=== PATIENT | female | born 1960 | race Caucasian/White ===

== ENCOUNTER → 2020-09-27 13:02 | Outpatient (BNVA) | payer MEDICARE, MEDICAID, SELFPAY | PROVIDERS: PCP Internal Medicine; Visit Provider Internal Medicine Gastroenterology | DX: K74.60 Unspecified cirrhosis of liver (principal); R18.8 Other ascites; K72.90 Hepatic failure, unspecified without coma | CPT/HCPCS: 99202 ==

== ENCOUNTER 2020-10-19 09:45 | Outpatient (REF) | payer MEDICARE, MEDICAID, SELFPAY ==
--- NOTE | ~2020-10-19 | US_ITS ---
EXAMINATION: US ABDOMEN COMPLETE CLINICAL INFORMATION: Unspecified cirrhosis of liver. COMPARISON: None TECHNIQUE: Real-time imaging of the abdominal viscera. Technically difficult study secondary to bowel gas. FINDINGS: PANCREAS: Visualized portions unremarkable. The tail is partially obscured by bowel gas shadowing. ABDOMINAL AORTA: The proximal and mid segments are normal in caliber. INFERIOR VENA CAVA: Visualized portions are normal. LIVER: Mildly heterogeneous echotexture without focal abnormality. GALLBLADDER: Incompletely distended without focal abnormality. No cholelithiasis or pericholecystic fluid. No Hicks's sign was elicited. COMMON BILE DUCT: Common hepatic duct measures 0.6 cm. Common bile duct measures up to 0.7 cm. No intraluminal abnormality. RIGHT KIDNEY: 10.0 cm. Unremarkable. LEFT KIDNEY: 11.5 cm. Unremarkable. SPLEEN: 15.4 cm without focal abnormality. FREE FLUID: None. US/US abdomen complete IMPRESSION: 1. Mildly heterogeneous hepatic echotexture is nonspecific, but can be seen with cirrhosis. No focal abnormality. 2. Borderline splenomegaly.
== END 2020-10-19 09:46 | disposition home or self-care (01) ==
LOC: HO.US 09:45
PROVIDERS: Visit Provider Internal Medicine Gastroenterology
DX: K74.60 Unspecified cirrhosis of liver (principal); R18.8 Other ascites
CPT/HCPCS: 76700

== ENCOUNTER → 2020-12-29 09:34 | Outpatient (BNVA) | payer MEDICARE, MEDICAID, SELFPAY | PROVIDERS: Visit Provider Advanced Practice Midwife ==

== ENCOUNTER 2021-02-07 08:25 | Outpatient (REF) | payer MEDICARE, MEDICAID, SELFPAY ==
[2021-02-08 11:01] LABS: BV Int Neg Control Negative (Negative); BV Int Pos Control Positive (Positive)
== END 2021-02-07 08:26 | disposition home or self-care (01) ==
LOC: HO.LAB 08:25
PROVIDERS: Visit Provider Advanced Practice Midwife
DX: N89.8 Other specified noninflammatory disorders of vagina (principal); R15.9 Full incontinence of feces; Z20.2 Contact with and (suspected) exposure to infections with a predominantly sexual mode of transmission
CPT/HCPCS: 87480; 87510; 87660; 99202

== ENCOUNTER 2021-04-06 06:43 | Inpatient (IN) | payer MEDICARE, MEDICAID, SELFPAY ==
[2021-04-06] VITALS (13 sets, daily range): BP systolic 93–126; BP diastolic 42–95; PULSE 60–118; RESP 14–30; TEMP 36.2–39.4; O2SAT 94–100; BMI 27.3
--- NOTE | ~2021-04-06 | XR_ITS ---
EXAMINATION: XR CHEST CLINICAL INFORMATION: Shortness of breath COMPARISON: None TECHNIQUE: Frontal view of the chest was obtained. FINDINGS: The patient is rotated to the right. The cardiac and mediastinal contours are normal. The lung volumes are low. There is subsegmental atelectasis at the left lung base. The lungs are otherwise clear. There is no pleural effusion or pneumothorax. There is extensive hardware seen in the cervical spine and lower thoracic spine. There is a catheter that projects over the left shoulder and upper arm. Clinical correlation recommended. XR/XR chest 1V IMPRESSION: Limited exam due to patient positioning. No evidence for acute disease in the chest.
--- NOTE | ~2021-04-06 | CT_ITS ---
EXAMINATION: CT ANGIOGRAM OF THE CHEST WITH AND WITHOUT CONTRAST (CT PULMONARY ANGIOGRAM FOR PE) CLINICAL INFORMATION: Reason for Exam hypoxic, hemoptysis, elevated dimer COMPARISON: Chest x-ray from earlier the same day TECHNIQUE: Prior to contrast administration, noncontrast localization images were obtained. Subsequently, multidetector volumetric imaging was performed from the thoracic inlet to below the diaphragms following the administration of 60 mL Omnipaque 350 intravenous contrast. No contrast reaction reported Sagittal, coronal, and MIP oblique sagittal reformatted images were obtained on the CT workstation, uploaded to PACS, and reviewed. This CT examination was performed using dose optimization techniques as appropriate, variously including the following: *Automated exposure control *Adjustment of mA and/or kV according to patient size (this includes techniques or standardized protocols for targeted exams where dose is matched to indication/reason for exam; i.e. extremities or head) *Use of iterative reconstruction technique Total exam dose-length product 381 mGy-cm FINDINGS: QUALITY OF STUDY/CONTRAST BOLUS: Satisfactory. PULMONARY ARTERIES: No central or segmental pulmonary emboli. THORACIC AORTA: No aneurysm or dissection. LUNG: There is consolidation in the right upper lobe probably representing pneumonia. There is a atelectasis or small pneumonia is seen in the left lower lobe at the left lung base. The lungs are otherwise clear. PLEURA: No pleural effusion or pneumothorax. MEDIASTINUM: The heart is enlarged. No pericardial effusion. No hilar or mediastinal lymphadenopathy. No evidence of septal bowing or right heart strain. CHEST WALL/AXILLA: There is subcutaneous edema and skin thickening seen in the right chest wall. No chest wall mass or enlarged axillary lymph nodes are seen. OSSEOUS STRUCTURES: No acute or suspicious osseous abnormality. There is scoliosis. There are increased postsurgical changes to the cervical spine and lower thoracic spine. UPPER ABDOMEN: The liver and spleen appear prominent. No reflux of contrast into the hepatic veins to suggest elevated right heart pressures. CT/CT angio chest PE protocol IMPRESSION: No evidence of pulmonary embolism. Right upper lobe pneumonia and atelectasis or small pneumonia in the left lower lobe. VTE: negative
--- NOTE | ~2021-04-06 | XR_ITS ---
EXAMINATION: XR CHEST CLINICAL INFORMATION: Fever COMPARISON: 04/06/21 TECHNIQUE: Frontal portable view of the chest was obtained. FINDINGS: Multiple devices overlie the patient and obscures the anatomy. The cardiac silhouette is prominent this is likely projectional. No large mediastinal or hilar mass. No alveolar edema. No large pleural effusion or definite pneumothorax. Lateral lower right rib deformity likely chronic. Cervical thoracic and thoracolumbar instrumentation. No obvious pneumoperitoneum XR/XR chest 1V IMPRESSION: Limited study. No dense consolidation or alveolar edema
--- NOTE | 2021-04-06 06:57 | ECG_ITS ---
Test Reason : sob Blood Pressure : / mmHG Vent. Rate : 101 BPM Atrial Rate : 101 BPM P-R Int : 142 ms QRS Dur : 088 ms QT Int : 374 ms P-R-T Axes : 046 005 063 degrees QTc Int : 484 ms Sinus tachycardia Minimal voltage criteria for LVH, may be normal variant ( R in aVL ) Borderline ECG No previous ECGs available Referred By: Suzy Qiu Electronically Signed By:Shawn Stevens
--- NOTE | 2021-04-06 07:00 | ED_ITS ---
HPI - SOB/Dyspnea General Chief Complaint: Dyspnea Stated Complaint: SOB X'S 3 DAYS FROM SNF,87% RA, 96% NRB PER EMS Time Seen by Provider: 04/06/21 06:44 Source: EMS Mode of arrival: EMS Limitations: altered mental status History of Present Illness HPI Narrative: Patient comes to the emergency room via ambulance from [facility]. This morning, nurses noted that the patient's oxygen saturation was 87% on room air. The staff reports that the patient has been short of breath for 3 days now. Patient is unable to give any history. EMS started the patient on non- rebreather at 15 L, oxygen improved to 95%. According to the staff admission care, the patient is ambulatory, able to interact with staff at baseline. Related Data Home Medications Medication Instructions Recorded Confirmed baclofen 10 mg tablet 10 mg PO TID@0900,1300,1700 09/27/20 04/06/21 docusate sodium 100 mg capsule 100 mg PO DAILY 09/27/20 04/06/21 furosemide 40 mg tablet 40 mg PO DAILY 09/27/20 04/06/21 magnesium oxide 400 mg PO BID@0900,1700 09/27/20 04/06/21 rifaximin 550 mg tablet (Xifaxan) 550 mg PO TID 02/07/21 04/06/21 risperidone 0.5 mg tablet 0.5 mg PO TID@0900,1300,1700 02/07/21 04/06/21 (Risperdal) sertraline 100 mg tablet 100 mg PO BEDTIME 02/07/21 04/06/21 spironolactone 50 mg tablet 50 mg PO DAILY@1300 02/07/21 04/06/21 trazodone 50 mg tablet 50 mg PO BEDTIME 02/07/21 04/06/21 atorvastatin 20 mg tablet 20 mg PO DAILY 04/06/21 04/06/21 divalproex 250 mg tablet,delayed 720 mg PO DAILY 04/06/21 04/06/21 release famotidine 20 mg tablet 20 mg PO DAILY 04/06/21 04/06/21 insulin detemir U-100 100 unit/mL 65 unit SUBCUT DAILY@1700 04/06/21 04/06/21 subcutaneous solution insulin detemir U-100 100 unit/mL 80 unit SUBCUT DAILY 04/06/21 04/06/21 subcutaneous solution insulin lispro 100 unit/mL 1 sliding scale dose SUBCUT 04/06/21 04/06/21 subcutaneous pen USEASDIRECTD lactulose 10 gram/15 mL oral 20 g PO BID@0900,1700 04/06/21 04/06/21 solution (Enulose) levothyroxine 112 mcg tablet 112 mcg PO DAILY@0600 04/06/21 04/06/21 pregabalin 75 mg capsule 75 mg PO DAILY 04/06/21 04/06/21 Allergies Allergy/AdvReac Type Severity Reaction Status Date / Time acetaminophen [From Percocet] Allergy Unknown Unknown Verified 02/07/21 08:48 oxycodone [From Percocet] Allergy Unknown Unknown Verified 02/07/21 08:48 Review of Systems Review of Systems: Yes Unobtainable due to mental condition and Unobtainable due to mental status [facility] Past Medical History Medical History Acute and subacute hepatic failure without coma Acute kidney failure Bipolar disorder Brain injury Cirrhosis of liver Contracture, right hand Hammer toe Nail dystrophy Other seizures Presbyopia Tinea manuum, pedis, and unguium Type 2 diabetes mellitus Surgical History Previous back surgery Social History Social History Advance Directives: Yes Advance Directives Information Provided: No Advance Directives on File: No Physical Exam Vital Signs: Vital Signs: Last Vital Signs Temp 100.1 F 04/06/21 09:21 Pulse 104 H 04/06/21 09:21 Resp 24 H 04/06/21 09:21 BP 124/61 04/06/21 09:21 Pulse Ox 99 04/06/21 09:21 BMI result Body Mass Index 27.3 Const: Other: Appearance: Alert. Ill-appearing Eyes: Pupils equal, round and reactive to light. ENT: Pharynx normal. Neck: Normal inspection. Neck supple. No lymph nodes noted. No crepitus CVS: Mild tachycardic, normal rhythm. Pulses normal. Normal S1 and S2 Respiratory: Mild to moderate respiratory distress, lung sounds have bilateral rales and crackles, no wheezing Abdomen: Soft and nontender. No rigidity. No distention. Skin: Skin hot and clammy Extremities: Trace pitting edema bilaterally, No Lacerations. No Rash Neuro: Oriented X 3. No motor deficit. No sensory deficit. Moving all extermities. No slurred speech. Course Course Course Narrative: 07:00 patient just arrived, all of patient's vitals are pending. Patient looks sick, likely having a combination of CHF exacerbation and pneumonia. Empiric antibiotics have been started, ceftriaxone and azithromycin. Pulmonary edema is also suspected. At this time, we will start only with 1 L and re-evaluate mental status. At this time, we do not have patient's weight. On arrival temperature was checked, is 103 rectal. Patient is allergic to acetaminophen, patient was given rectal aspirin. I was informed by the patient's nurse that the patient had 1 episode of hemoptysis. Will try to wean patient down to a Ventimask 09:45 Patient is saturating 95% with a Ventimask. CT negative for PE, however patient does have pneumonia. Patient has already been covered with IV antibiotics on arrival. I discussed the patient with Dr. Simons, patient being admitted MDM - SOB/Dyspnea Lab Data Result diagrams: 04/06/21 07:13 04/06/21 07:13 Labs: Lab Results 04/06/21 04/06/21 04/06/21 Range/Units 07:05 07:13 07:13 WBC 5.5 (4.8-10.8) X10*3/uL RBC 3.42 L (4.20-5.50) X10*6/uL Hgb 10.8 L (12.0-16.0) g/dl Hct 34.5 L (37.0-47.0) % MCV 100.9 H (80.0-98.0) fL MCH 31.6 (27.0-33.0) pg MCHC 31.3 (31.0-35.0) g/dl RDW 16.0 (11.0-16.0) % Plt Count 120 L (160-400) X10*3/uL MPV 11.3 (9.4-12.3) fL Immature Gran % (Auto) 0.4 (0.0-0.4) % Neut % (Auto) 69.0 (45-73) % Lymph % (Auto) 18.9 L (20-40) % [place] % (Auto) 10.9 (2-11) % Eos % (Auto) 0.4 (0-4) % Baso % (Auto) 0.4 (0-2) % Lymph # (Auto) 1.0 L (1.2-4.9) X10*3/uL [place] # (Auto) 0.6 (0.1-1.2) X10*3/uL Eos # (Auto) 0.0 (0.0-0.4) X10*3/uL Baso # (Auto) 0.0 (0.0-0.2) X10*3/uL Abs Immat Gran (auto) 0.02 (0.00-0.03) X10*3/uL Absolute Neuts (auto) 3.8 (2.0-8.3) x10*3/uL Absolute Nucleated RBC 0.000 (0.0-0.012) X10*3/uL Nucleated RBC % (auto) 0.0 (0.0-0.2) /100WBC PT 16.8 H (9.9-13.0) SEC INR 1.5 H (0.9-1.1) D-Dimer High Sensitivty 565 NG/ML VBG pH (7.32-7.43) VBG pCO2 mmHg VBG pO2 mmHg VBG HCO3 (22-26) mmol/L VBG O2 Saturation % VBG Base Excess mmol/L Sodium (135-145) mmol/L Potassium (3.3-5.1) mmol/L Chloride (96-108) mmol/L Carbon Dioxide (22-29) mmol/L Anion Gap (12-20) BUN (9-16) mg/dL Creatinine (0.5-1.4) mg/dL Estim Creat Clear Calc Estimated GFR POC Glucose (60-115) mg/dL Random Glucose (60-115) mg/dL Lactic Acid (0.5-2.0) mmol/L Calcium (8.4-10.2) mg/dL Total Bilirubin (0.0-1.0) mg/dL Direct Bilirubin (0.0-0.5) mg/dL AST (5-31) U/L ALT (0-31) U/L Alkaline Phosphatase (39-117) U/L Troponin I High Sens (<3.5-17.0) ng/L B-Natriuretic Peptide (<100) pg/mL Total Protein (6.5-8.0) g/dL Albumin (3.5-5.0) g/dL COVID-19 (MELONIE) Negative (Negative) COVID-19 Clin Com See Note 04/06/21 04/06/21 04/06/21 Range/Units 07:13 07:13 07:17 WBC (4.8-10.8) X10*3/uL RBC (4.20-5.50) X10*6/uL Hgb (12.0-16.0) g/dl Hct (37.0-47.0) % MCV (80.0-98.0) fL MCH (27.0-33.0) pg MCHC (31.0-35.0) g/dl RDW (11.0-16.0) % Plt Count (160-400) X10*3/uL MPV (9.4-12.3) fL Immature Gran % (Auto) (0.0-0.4) % Neut % (Auto) (45-73) % Lymph % (Auto) (20-40) % [place] % (Auto) (2-11) % Eos % (Auto) (0-4) % Baso % (Auto) (0-2) % Lymph # (Auto) (1.2-4.9) X10*3/uL [place] # (Auto) (0.1-1.2) X10*3/uL Eos # (Auto) (0.0-0.4) X10*3/uL Baso # (Auto) (0.0-0.2) X10*3/uL Abs Immat Gran (auto) (0.00-0.03) X10*3/uL Absolute Neuts (auto) (2.0-8.3) x10*3/uL Absolute Nucleated RBC (0.0-0.012) X10*3/uL Nucleated RBC % (auto) (0.0-0.2) /100WBC PT (9.9-13.0) SEC INR (0.9-1.1) D-Dimer High Sensitivty NG/ML VBG pH 7.44 H (7.32-7.43) VBG pCO2 38 mmHg VBG pO2 52 mmHg VBG HCO3 26 (22-26) mmol/L VBG O2 Saturation 77.0 % VBG Base Excess 2.0 mmol/L Sodium 139 (135-145) mmol/L Potassium 4.4 (3.3-5.1) mmol/L Chloride 102 (96-108) mmol/L Carbon Dioxide 26 (22-29) mmol/L Anion Gap 15 (12-20) BUN 21 H (9-16) mg/dL Creatinine 1.14 (0.5-1.4) mg/dL Estim Creat Clear Calc 49.2 Estimated GFR 48 POC Glucose (60-115) mg/dL Random Glucose 365 H* (60-115) mg/dL Lactic Acid (0.5-2.0) mmol/L Calcium 9.4 (8.4-10.2) mg/dL Total Bilirubin 1.7 H (0.0-1.0) mg/dL Direct Bilirubin 0.8 H (0.0-0.5) mg/dL AST 27 (5-31) U/L ALT 21 (0-31) U/L Alkaline Phosphatase 76 (39-117) U/L Troponin I High Sens 5.5 (<3.5-17.0) ng/L B-Natriuretic Peptide 63 (<100) pg/mL Total Protein 9.4 H (6.5-8.0) g/dL Albumin 3.6 (3.5-5.0) g/dL COVID-19 (MELONIE) (Negative) COVID-19 Clin Com 04/06/21 04/06/21 Range/Units 07:28 08:12 WBC (4.8-10.8) X10*3/uL RBC (4.20-5.50) X10*6/uL Hgb (12.0-16.0) g/dl Hct (37.0-47.0) % MCV (80.0-98.0) fL MCH (27.0-33.0) pg MCHC (31.0-35.0) g/dl RDW (11.0-16.0) % Plt Count (160-400) X10*3/uL MPV (9.4-12.3) fL Immature Gran % (Auto) (0.0-0.4) % Neut % (Auto) (45-73) % Lymph % (Auto) (20-40) % [place] % (Auto) (2-11) % Eos % (Auto) (0-4) % Baso % (Auto) (0-2) % Lymph # (Auto) (1.2-4.9) X10*3/uL [place] # (Auto) (0.1-1.2) X10*3/uL Eos # (Auto) (0.0-0.4) X10*3/uL Baso # (Auto) (0.0-0.2) X10*3/uL Abs Immat Gran (auto) (0.00-0.03) X10*3/uL Absolute Neuts (auto) (2.0-8.3) x10*3/uL Absolute Nucleated RBC (0.0-0.012) X10*3/uL Nucleated RBC % (auto) (0.0-0.2) /100WBC PT (9.9-13.0) SEC INR (0.9-1.1) D-Dimer High Sensitivty NG/ML VBG pH (7.32-7.43) VBG pCO2 mmHg VBG pO2 mmHg VBG HCO3 (22-26) mmol/L VBG O2 Saturation % VBG Base Excess mmol/L Sodium (135-145) mmol/L Potassium (3.3-5.1) mmol/L Chloride (96-108) mmol/L Carbon Dioxide (22-29) mmol/L Anion Gap (12-20) BUN (9-16) mg/dL Creatinine (0.5-1.4) mg/dL Estim Creat Clear Calc Estimated GFR POC Glucose 322 H (60-115) mg/dL Random Glucose (60-115) mg/dL Lactic Acid 2.2 H* (0.5-2.0) mmol/L Calcium (8.4-10.2) mg/dL Total Bilirubin (0.0-1.0) mg/dL Direct Bilirubin (0.0-0.5) mg/dL AST (5-31) U/L ALT (0-31) U/L Alkaline Phosphatase (39-117) U/L Troponin I High Sens (<3.5-17.0) ng/L B-Natriuretic Peptide (<100) pg/mL Total Protein (6.5-8.0) g/dL Albumin (3.5-5.0) g/dL COVID-19 (MELONIE) (Negative) COVID-19 Clin Com Imaging Data CTA chest: Radiologist's impression: FINDINGS: QUALITY OF STUDY/CONTRAST BOLUS: Satisfactory. PULMONARY ARTERIES: No central or segmental pulmonary emboli.? THORACIC AORTA: No aneurysm or dissection. LUNG: There is consolidation in the right upper lobe probably representing pneumonia. There is a atelectasis or small pneumonia is seen in the left lower lobe at the left lung base. The lungs are otherwise clear. PLEURA: No pleural effusion or pneumothorax. MEDIASTINUM: The heart is enlarged. No pericardial effusion.? No hilar or mediastinal lymphadenopathy.? No evidence of septal bowing or right heart strain. CHEST WALL/AXILLA: There is subcutaneous edema and skin thickening seen in the right chest wall. No chest wall mass or enlarged axillary lymph nodes are seen. OSSEOUS STRUCTURES: No acute or suspicious osseous abnormality. There is scoliosis. There are increased postsurgical changes to the cervical spine and lower thoracic spine. UPPER ABDOMEN: The liver and spleen appear prominent.? No reflux of contrast into the hepatic veins to suggest elevated right heart pressures. CT/CT angio chest PE protocol IMPRESSION: No evidence of pulmonary embolism. Right upper lobe pneumonia and atelectasis or small pneumonia in the left lower lobe. ? VTE: negative Critical Care Time Critical Care Time Critical Care Time: Yes Total Critical Care Time: 50 Attestation: 50 minutes were spent in direct patient care and stabilization Discharge Plan Discharge Clinical Impression: Pneumonia, Acute hyperglycemia Patient Disposition: Admitted As Inpatient Prescriptions: No Action atorvastatin 20 mg Tablet 20 mg PO DAILY 0RF divalproex 250 mg Tablet,Delayed Release (Dr/Ec) 720 mg PO DAILY 0RF famotidine 20 mg Tablet 20 mg PO DAILY 0RF levothyroxine 112 mcg Tablet 112 mcg PO DAILY@0600 0RF insulin lispro 100 unit/mL Insulin Pen 1 sliding scale dose SUBCUT USEASDIRECTD 0RF lactulose [Enulose] 10 gram/15 mL Solution 20 g PO BID@0900,1700 0RF pregabalin 75 mg Capsule 75 mg PO DAILY 0RF insulin detemir U-100 100 unit/mL Solution 80 unit SUBCUT DAILY 0RF insulin detemir U-100 100 unit/mL Solution 65 unit SUBCUT DAILY@1700 0RF baclofen 10 mg tablet 10 mg PO TID@0900,1300,1700 0RF docusate sodium 100 mg capsule 100 mg PO DAILY 0RF furosemide 40 mg tablet 40 mg PO DAILY 0RF magnesium oxide 400 mg magnesium capsule 400 mg PO BID@0900,1700 0RF trazodone 50 mg tablet 50 mg PO BEDTIME 0RF Xifaxan 550 mg tablet 550 mg PO TID 0RF sertraline 100 mg tablet 100 mg PO BEDTIME 0RF spironolactone 50 mg tablet 50 mg PO DAILY@1300 0RF risperidone [Risperdal] 0.5 mg tablet 0.5 mg PO TID@0900,1300,1700 0RF
[2021-04-06 07:18] LABS: MANUAL DIFF FLAG NO
[2021-04-06] MEDS: 0.9 % Sodium Chloride 1,000 ML 999 ML IVCONT (07:18)
[2021-04-06] MEDS: Acetaminophen Supp 650 MG SUPP.RECT PR (07:18)
[2021-04-06] MEDS: Aspirin 300 MG SUPP.RECT PR (07:18)
[2021-04-06 07:23] LABS: Basophils Percent Auto 0.4 % (0-2); Eosinophils Percent Auto 0.4 % (0-4); Hematocrit 34.5 % (37.0-47.0); Hemoglobin 10.8 g/dl (12.0-16.0); Imm Gran Abs Auto 0.02 X10*3/uL (0.00-0.03); Imm Gran Pct Auto 0.4 % (0.0-0.4); Lymphocytes Percent Auto 18.9 % (20-40); Mean Corpuscular HGB Conc 31.3 g/dl (31.0-35.0); Mean Corpuscular Hemoglobin 31.6 pg (27.0-33.0); Mean Corpuscular Volume 100.9 fL (80.0-98.0); Mean Platelet Volume 11.3 fL (9.4-12.3); Monocytes Absolute Auto 0.6 X10*3/uL (0.1-1.2); Monocytes Percent Auto 10.9 % (2-11); Neutrophils Absolute Auto 3.8 x10*3/uL (2.0-8.3); Platelet Count 120 X10*3/uL (160-400); Red Blood Count 3.42 X10*6/uL (4.20-5.50); White Blood Count 5.5 X10*3/uL (4.8-10.8)
[2021-04-06 07:24] LABS: VBG HCO3 26 mmol/L (22-26); VBG pCO2 38 mmHg; VBG pH 7.44 (7.32-7.43); VBG pO2 52 mmHg
[2021-04-06 07:25] LABS: Venous Blood Gas Refer to POC result
[2021-04-06 07:28] LABS: INTERNATIONAL NORM RATIO 1.5 (0.9-1.1); Prothrombin Time 16.8 SEC (9.9-13.0)
[2021-04-06 07:40] LABS: COVID-19 Test Negative (Negative)
[2021-04-06] MEDS: cefTRIAXone sodium 1 GM in 0.9 % Sodium Chloride 50 ML IV (07:40)
[2021-04-06 07:42] LABS: Alanine Aminotransferase 21 U/L (0-31); Albumin Level 3.6 g/dL (3.5-5.0); Alkaline Phosphatase 76 U/L (39-117); Anion Gap 15 (12-20); Aspartate Amino Transferase 27 U/L (5-31); Bilirubin Direct 0.8 mg/dL (0.0-0.5); Bilirubin Total 1.7 mg/dL (0.0-1.0); Blood Urea Nitrogen 21 mg/dL (9-16); Calcium 9.4 mg/dL (8.4-10.2); Carbon Dioxide 26 mmol/L (22-29); Chloride 102 mmol/L (96-108); Creatinine Clr Calc Pharmacy 49.2; Estimated Glomerular Filt Rate 48; Glucose Random 365 mg/dL (60-115); Potassium 4.4 mmol/L (3.3-5.1); Sodium 139 mmol/L (135-145); Total Protein 9.4 g/dL (6.5-8.0)
[2021-04-06 07:45] LABS: B Type Natriuretic Peptide 63 pg/mL (<100); Troponin-I High Sensitivity 5.5 ng/L (<3.5-17.0)
[2021-04-06 07:49] LABS: Lactic Acid 2.2 mmol/L (0.5-2.0)
[2021-04-06 08:06] LABS: D Dimer High Sensitivity 565 NG/ML
[2021-04-06] MEDS: Azithromycin 500 MG in 0.9 % Sodium Chloride 250 ML 125 MG IV (08:13)
[2021-04-06] MEDS: Insulin Regular, Human 100 UNIT/ML 3 ML VIAL 10 UNIT IVPUSH (08:16)
[2021-04-06 08:20] LABS: Glucose, Whole Blood 322 mg/dL (60-115)
--- NOTE | 2021-04-06 08:47 | PHA.MEDREC ---
Pharmacy Consult ? Medication Reconciliation Pharmacy has completed the medication reconciliation. Patient came from [facility] with a medication list. Gifty oCnstantino, BishnuD
[2021-04-06] MEDS: iohexoL 350 MG/ML 100 ML INFUS..BTL 60 ML IV (09:08)
[2021-04-06] MEDS: iohexoL 350 MG/ML 100 ML INFUS..BTL IV (09:22)
[2021-04-06 09:31] LABS: Reflex Lactate? Lactic Acid Added
[2021-04-06] MEDS: 0.9 % Sodium Chloride 1,500 ML 999 ML IVCONT (09:37)
[2021-04-06 09:49] LABS: Appearance Urine CLOUDY; Color Urine YELLOW; Glucose Urine UA NEG (NEG); Leukocyte Esterase Urine NEG (NEG); Nitrite Urine POS (NEG); UACC Culture Trigger YES; Urine Blood NEG (NEG); Urine Ketones 5 MG/DL (NEG); Urine Protein TRACE MG/DL (NEG-TRACE)
[2021-04-06 09:59] LABS: Bacteria Urine 3+ /LPF; RBC Urine 0 /HPF (0); Squamous Epithelial Cell Urine 1+ /LPF
[2021-04-06 10:31] LABS: Glucose, Whole Blood 291 mg/dL (60-115)
--- NOTE | 2021-04-06 11:18 | PM.IMHP ---
History of Present Illness Date of Service: 04/06/21 Chief Complaint: AMS, hypoxia This history obtained from ED physician, SNF records, and the patient's sister Janessa Nelson via telephone, as the patient has altered mental status and is unable to give a history at this time. 61yo F long-term care resident of [facility] with bipolar 1, PTSD, cirrhosis with ascites/portal hypertension and hepatic encephalopathy, GERD, hypothyroidism, and DM2 was noted by have dyspnea and altered mental status over the last 3 days. Today, oxygen saturation was 87% on room air. EMS was called. On presentation to the ED, she was septic by virtue of fever to 103 and tachycardia in the 110s. CTA showed RUL/LLL pneumonia. Covid-19 MELONIE negative. Lactate 2.2. She was given IV ceftriaxone and azithromycin and a liter of IV NS. She was hyperglycemic to 365 and was given 10 units of IV regular insulin. Review of Systems Review of Systems: Yes Unobtainable due to mental status [facility] Medical History Acute and subacute hepatic failure without coma Acute kidney failure Bipolar disorder Brain injury Cirrhosis of liver Contracture, right hand Hammer toe Nail dystrophy Other seizures Presbyopia Tinea manuum, pedis, and unguium Type 2 diabetes mellitus Functional capacity: independent ambulation Pertinent family history: no DM Surgical History History of lumpectomy Previous back surgery Social History Advance Directives: Yes Advance Directives Information Provided: No Advance Directives on File: No Narrative: No smoking, EtOH, or drug abuse At baseline, she ambulates with rollator for short distances. She uses a wheelchair for long distances. She can feed herself once she is set up. She is incontinent of urine. Per MOLST, resuscitation OK but DNI. Meds Allergies Allergy/AdvReac Type Severity Reaction Status Date / Time acetaminophen [From Percocet] Allergy Unknown Unknown Verified 02/07/21 08:48 oxycodone [From Percocet] Allergy Unknown Unknown Verified 02/07/21 08:48 Active Medications: Current Medications Atorvastatin Calcium (Atorvastatin Calcium 20 Mg Tablet) 20 mg PO DAILY ARABELLA Baclofen (Baclofen 10 Mg Tablet) 10 mg PO TID@0900,1300,1700 [facility] Dextrose (Dextrose 50 % 25 Gm/50 Ml Syringe) 25 gm IVPUSH Q15M PRN; Protocol PRN Reason: per Hypoglycemia Standing Ord. Divalproex Sodium (Divalproex Sodium 250 Mg Tablet.Dr) 750 mg PO DAILY [facility] Docusate Sodium (Docusate Sodium 100 Mg Capsule) 100 mg PO DAILY [facility] Famotidine (Famotidine 20 Mg Tablet) 20 mg PO DAILY [facility] Furosemide (Furosemide 40 Mg Tablet) 40 mg PO DAILY ARABELLA; Protocol Glucose (Glucose Gel 15 Gm Gel..Gram.) 15 gm PO Q15M PRN; Protocol PRN Reason: per Hypoglycemia Standing Ord. Ceftriaxone Sodium 1 gm/ (Sodium Chloride) 50 mls @ 100 mls/hr IV Q24H ARABELLA Doxycycline Hyclate 100 mg/ (Sodium Chloride) 250 mls @ 166.67 mls/hr IV Q12H [facility] Sodium Chloride (Ns) 1,000 mls @ 100 mls/hr IVCONT .Q10H [facility] Stop: 04/06/21 21:14 Insulin Glargine (Insulin Glargine,Hum.Rec.Anlog 100 Unit/Ml 10 Ml Vial) 40 unit SUBCUT DAILY [facility] Insulin Human Lispro (Insulin Lispro 100 Unit/Ml 3 Ml Vial) 0 unit SUBCUT QIDACHS [facility]; Protocol Lactulose (Lactulose 20 Gm/30 Ml Solution) 20 gm PO BID@0900,1700 [facility] Levothyroxine Sodium (Levothyroxine Sodium 112 Mcg Tablet) 112 mcg PO DAILY@0600 [facility] Magnesium Oxide (Magnesium Oxide 400 Mg Tablet) 400 mg PO BID@0900,1700 [facility] Ondansetron HCl (Ondansetron Hcl 4 Mg/2 Ml Vial) 4 mg IVPUSH Q8H PRN PRN Reason: Nausea and Vomiting Pharmacy Consult (Consult Rx Perform Med Rec) 1 each MISCELLANE ONCE PRN PRN Reason: Consult order Pregabalin (Pregabalin 75 Mg Capsule) 75 mg PO DAILY [facility] Rifaximin (Rifaximin 550 Mg Tablet) 550 mg PO TID [facility] Risperidone (Risperidone 0.5 Mg Tablet) 0.5 mg PO TID@0900,1300,1700 [facility] Sertraline HCl (Sertraline Hcl 100 Mg Tablet) 100 mg PO BEDTIME [facility] Sodium Chloride (0.9 % Sodium Chloride Flush 3 Ml Syringe) 3 ml IVFLUSH QSHIFT [facility] Spironolactone (Spironolactone 25 Mg Tablet) 50 mg PO DAILY@1300 [facility]; Protocol Trazodone HCl (Trazodone Hcl 50 Mg Tablet) 50 mg PO BEDTIME [facility] Home Medications Medication Instructions Recorded Confirmed Last Taken Type baclofen 10 mg tablet 10 mg PO TID@0900,1300,1700 09/27/20 04/06/21 04/05/21 History docusate sodium 100 mg capsule 100 mg PO DAILY 09/27/20 04/06/21 04/05/21 History furosemide 40 mg tablet 40 mg PO DAILY 09/27/20 04/06/21 04/05/21 History magnesium oxide 400 mg PO BID@0900,1700 09/27/20 04/06/21 04/05/21 History rifaximin 550 mg tablet (Xifaxan) 550 mg PO TID 02/07/21 04/06/21 04/05/21 History risperidone 0.5 mg tablet 0.5 mg PO TID@0900,1300,1700 02/07/21 04/06/21 04/05/21 History (Risperdal) sertraline 100 mg tablet 100 mg PO BEDTIME 02/07/21 04/06/21 04/05/21 History spironolactone 50 mg tablet 50 mg PO DAILY@1300 02/07/21 04/06/21 04/05/21 History trazodone 50 mg tablet 50 mg PO BEDTIME 02/07/21 04/06/21 04/05/21 History atorvastatin 20 mg tablet 20 mg PO DAILY 04/06/21 04/06/21 04/05/21 History divalproex 250 mg tablet,delayed 750 mg PO DAILY 04/06/21 04/06/21 04/05/21 History release famotidine 20 mg tablet 20 mg PO DAILY 04/06/21 04/06/21 04/05/21 History insulin detemir U-100 100 unit/mL 65 unit SUBCUT DAILY@1700 04/06/21 04/06/21 04/05/21 History subcutaneous solution insulin detemir U-100 100 unit/mL 80 unit SUBCUT DAILY 04/06/21 04/06/21 04/05/21 History subcutaneous solution insulin lispro 100 unit/mL 1 sliding scale dose SUBCUT 04/06/21 04/06/21 04/05/21 History subcutaneous pen USEASDIRECTD lactulose 10 gram/15 mL oral 20 g PO BID@0900,1700 04/06/21 04/06/21 04/05/21 History solution (Enulose) levothyroxine 112 mcg tablet 112 mcg PO DAILY@0600 04/06/21 04/06/21 04/06/21 History pregabalin 75 mg capsule 75 mg PO DAILY 04/06/21 04/06/21 04/05/21 History Physical Exam Vital Signs and Narrative: Vital Signs: Last Vital Signs Temp 100.1 F 04/06/21 09:21 Pulse 118 H 04/06/21 10:17 Resp 20 04/06/21 10:17 BP 113/59 L 04/06/21 10:17 Pulse Ox 100 04/06/21 10:17 BMI result Body Mass Index 27.3 Gen: ill-appearing, non-verbal at this time HEENT: sclera anicteric, moist mucus membranes Neck: supple Lungs: diminished, coarse wet inspiratory crackles R-sided Heart: tachycardic, no murmurs Abd: soft, non-tender, non-distended Ext: no edema Skin: warm/well-perfused Neuro: somnolent, multiple contractures Psych: impaired insight Results Labs CBC and Chem 7: 04/06/21 07:13 04/06/21 07:13 Labs: Laboratory Results - last 24 hr 04/06/21 04/06/21 04/06/21 07:05 07:13 07:13 MCV 100.9 H MCH 31.6 MCHC 31.3 RDW 16.0 Plt Count 120 L MPV 11.3 Immature Gran % (Auto) 0.4 Neut % (Auto) 69.0 Lymph % (Auto) 18.9 L [place] % (Auto) 10.9 Eos % (Auto) 0.4 Baso % (Auto) 0.4 Lymph # (Auto) 1.0 L [place] # (Auto) 0.6 Eos # (Auto) 0.0 Baso # (Auto) 0.0 Abs Immat Gran (auto) 0.02 Absolute Neuts (auto) 3.8 Absolute Nucleated RBC 0.000 Nucleated RBC % (auto) 0.0 PT 16.8 H INR 1.5 H D-Dimer High Sensitivty 565 VBG pH VBG pCO2 VBG pO2 VBG HCO3 VBG O2 Saturation VBG Base Excess Anion Gap Estim Creat Clear Calc Estimated GFR POC Glucose Random Glucose Lactic Acid Calcium Total Bilirubin Direct Bilirubin AST ALT Alkaline Phosphatase B-Natriuretic Peptide Total Protein Albumin Urine Color Urine Appearance Urine pH Ur Specific [place] Urine Protein Urine Glucose (UA) Urine Ketones Urine Blood Urine Nitrite Ur Leukocyte Esterase Urine RBC Urine WBC Ur Squamous Epith Cells Urine Bacteria COVID-19 (MELONIE) Negative COVID-19 Clin Com See Note 04/06/21 04/06/21 04/06/21 07:13 07:13 07:17 MCV MCH MCHC RDW Plt Count MPV Immature Gran % (Auto) Neut % (Auto) Lymph % (Auto) [place] % (Auto) Eos % (Auto) Baso % (Auto) Lymph # (Auto) [place] # (Auto) Eos # (Auto) Baso # (Auto) Abs Immat Gran (auto) Absolute Neuts (auto) Absolute Nucleated RBC Nucleated RBC % (auto) PT INR D-Dimer High Sensitivty VBG pH 7.44 H VBG pCO2 38 VBG pO2 52 VBG HCO3 26 VBG O2 Saturation 77.0 VBG Base Excess 2.0 Anion Gap 15 Estim Creat Clear Calc 49.2 Estimated GFR 48 POC Glucose Random Glucose 365 H* Lactic Acid Calcium 9.4 Total Bilirubin 1.7 H Direct Bilirubin 0.8 H AST 27 ALT 21 Alkaline Phosphatase 76 B-Natriuretic Peptide 63 Total Protein 9.4 H Albumin 3.6 Urine Color Urine Appearance Urine pH Ur Specific [place] Urine Protein Urine Glucose (UA) Urine Ketones Urine Blood Urine Nitrite Ur Leukocyte Esterase Urine RBC Urine WBC Ur Squamous Epith Cells Urine Bacteria COVID-19 (MELONIE) COVID-19 Clin Com 04/06/21 04/06/21 04/06/21 07:28 08:12 09:36 MCV MCH MCHC RDW Plt Count MPV Immature Gran % (Auto) Neut % (Auto) Lymph % (Auto) [place] % (Auto) Eos % (Auto) Baso % (Auto) Lymph # (Auto) [place] # (Auto) Eos # (Auto) Baso # (Auto) Abs Immat Gran (auto) Absolute Neuts (auto) Absolute Nucleated RBC Nucleated RBC % (auto) PT INR D-Dimer High Sensitivty VBG pH VBG pCO2 VBG pO2 VBG HCO3 VBG O2 Saturation VBG Base Excess Anion Gap Estim Creat Clear Calc Estimated GFR POC Glucose 322 H Random Glucose Lactic Acid 2.2 H* Calcium Total Bilirubin Direct Bilirubin AST ALT Alkaline Phosphatase B-Natriuretic Peptide Total Protein Albumin Urine Color YELLOW Urine Appearance CLOUDY Urine pH 7.0 Ur Specific [place] 1.020 Urine Protein TRACE Urine Glucose (UA) NEG Urine Ketones 5 Urine Blood NEG Urine Nitrite POS H Ur Leukocyte Esterase NEG Urine RBC 0 Urine WBC 10-14 H Ur Squamous Epith Cells 1+ Urine Bacteria 3+ COVID-19 (MELONIE) COVID-19 Clin Com 04/06/21 10:19 MCV MCH MCHC RDW Plt Count MPV Immature Gran % (Auto) Neut % (Auto) Lymph % (Auto) [place] % (Auto) Eos % (Auto) Baso % (Auto) Lymph # (Auto) [place] # (Auto) Eos # (Auto) Baso # (Auto) Abs Immat Gran (auto) Absolute Neuts (auto) Absolute Nucleated RBC Nucleated RBC % (auto) PT INR D-Dimer High Sensitivty VBG pH VBG pCO2 VBG pO2 VBG HCO3 VBG O2 Saturation VBG Base Excess Anion Gap Estim Creat Clear Calc Estimated GFR POC Glucose 291 H Random Glucose Lactic Acid Calcium Total Bilirubin Direct Bilirubin AST ALT Alkaline Phosphatase B-Natriuretic Peptide Total Protein Albumin Urine Color Urine Appearance Urine pH Ur Specific [place] Urine Protein Urine Glucose (UA) Urine Ketones Urine Blood Urine Nitrite Ur Leukocyte Esterase Urine RBC Urine WBC Ur Squamous Epith Cells Urine Bacteria COVID-19 (MELONIE) COVID-19 Clin Com Imaging Radiologist's Impressions: Impressions Chest X-Ray 04/06/21 08:21 IMPRESSION: Limited exam due to patient positioning. No evidence for acute disease in the chest. Chest CTA 04/06/21 09:20 IMPRESSION: No evidence of pulmonary embolism. Right upper lobe pneumonia and atelectasis or small pneumonia in the left lower lobe. VTE: negative Assessment and Plan (1) Severe sepsis: Status: Acute (2) Pneumonia: Status: Acute Plan 61yo long-term SNF resident with bipolar 1, PTSD, cirrhosis with ascites/portal hypertension and hepatic encephalopathy, GERD, hypothyroidism, and DM2 sent in with AMS, dyspnea, and hypoxia and found to have severe sepsis from pneumonia. # severe sepsis # multifocal pneumonia - admit to [facility] - ceftriaxone + doxycycline - trend PCT - check RVP - check Legionella + pneumococcal UAgs - follow BCx - CAN CARRIER evaluation - isotonic IV fluid # septic encephalopathy - treat infection as above # DM2 with hyperglycemia - basal/bolus insulin, check A1c # cirrhosis with ascites - continue spironolactone, furosemide # HLD - atorvastatin # hepatic encephalopathy - continue rifaximin, lactulose # chronic pain - pregabalin, baclofen # GERD - famotidine # bipolar 1/PTSD - continue sertraline, risperidone, trazodone, valproate # VTE ppx - SCDs, LMWH Quality Stroke Does the patient have a stroke diagnosis?: No VTE Prior VTE?: No VTE Risk Level:: Medical - moderate - high VTE Device Contraindication: N/A - Device Ordered VTE Drug Contraindication: N/A - Med Ordered
[2021-04-06] MEDS: Insulin Glargine,Hum.rec.anlog 100 UNIT/ML 10 ML VIAL 40 UNIT SUBCUT (11:21)
[2021-04-06] MEDS: Doxycycline Hyclate 100 MG in 0.9 % Sodium Chloride 250 ML 166.67 MG IV (11:21)
[2021-04-06] MEDS: 0.9 % Sodium Chloride 1,000 ML 100 ML IVCONT (11:25)
[2021-04-06 11:28] LABS: ~Lactic Acid-LAB USE ONLY 3.5 mmol/L (0.5-2.0)
[2021-04-06 12:06] LABS: C Reactive Protein 9.17 mg/dL (< or = 0.50)
[2021-04-06 12:29] LABS: Reflex Lactate? 2 Y
[2021-04-06] MEDS: Enoxaparin Sodium 40 MG/0.4 ML SYRINGE SUBCUT (12:45)
[2021-04-06 12:46] LABS: Glucose, Whole Blood 270 mg/dL (60-115)
[2021-04-06 13:23] LABS: ~Lactic Acid-LAB USE ONLY 1.8 mmol/L (0.5-2.0)
[2021-04-06 15:27] LABS: Estimated Average Glucose 209 mg/dL; Hemoglobin A1c % 8.9 %
[2021-04-06 16:23] LABS: Glucose, Whole Blood 271 mg/dL (60-115)
--- NOTE | 2021-04-06 17:32 | MHC.SL.SWA ---
Speech Pathologist Impression: Risk of Aspiration Oralpharyngeal Dysphagia Risk of Aspiration Due to: History of Pneumonia Dysphasia Diet Status: Upgrade Liquid Consistency and Strategies for Safe Swallow: Liquid Intake Recommendation: Honey Thick Liquid Intake Strategies: Small Sips No Straws Solid Food Consistency: Dietary Recommendations: Chopped/Advanced (NDD3) Additional Modifications to Solid Foods: Overt s/s of aspiration with thin liquids. Prolonged oral phase and mild oral residue with consumption of dry solids. Recommend CHOPPED/ADVANCED (NDD3) solids (w/ sauce/gravy as needed) and HONEY THICK liquid, pills WHOLE in PUREE. Recommend aspiration precautions and 1:1 supervision- assistance as needed. [employer] message sent to MD, RN, RD. PULLEY WORKER will continue to follow. Oral Medication Intake: Whole with Puree Compensatory Strategies and Precautions to be Taken for Safe Swallow: Sitting Upright (90 deg) No Straw Small Bites and Sips Alternate Liquids/Solids Rate of Ingestion Change Oral Check Supervision While Eating and Drinking for Safe Swallow: Total Supervision (1:1) Swallowing Recommended Treatments: Compens. Strategy Educat. Recommendation for Speech: Inpatient Speech Therapy Comment: Frequency/Duration: M-F Date Range for Service Req: Timeline to reassess: Social Media Specialist Clinican/Clinical Fellow: No Supervisory Statement: I have reviewed and agree with the student/clinical fellow's documentation: N/A Speech Language Pathologist: Margaret Doty M.A., CCC-PULLEY WORKER
[2021-04-06] MEDS: rifAXIMin 550 MG TABLET PO (18:52)
[2021-04-06] MEDS: 0.9 % Sodium Chloride Flush 3 ML SYRINGE IVFLUSH (18:53)
[2021-04-06] MEDS: risperiDONE 0.5 MG TABLET PO (18:53)
[2021-04-06] MEDS: Magnesium Oxide 400 MG TABLET PO (18:54)
[2021-04-06] MEDS: Lactulose 20 GM/30 ML SOLUTION PO (18:54)
[2021-04-06] MEDS: Baclofen 10 MG TABLET PO (18:54)
--- NOTE | 2021-04-06 19:03 | PC.NURSE ---
P patient has redness under arms,abdomen,bilateral groins,buttocks,back of bilateral thighs,areas warmer to touch I Dr. Simons notified,assessed patient E will monitor,Dr. Simons questioning possible reaction to antibiotics
--- NOTE | 2021-04-06 19:05 | PM.EVENT ---
Event Note Date of Service: 04/06/21 Event Note: Called by RN to assess pt for multiple areas of warm bright-red erythema- under her arms ,lower abdomen,groin,buttocks Pt afebrile, BP 99/54, P 92, eating with assistance, denies itching/tongue swelling. Pt had receievd azithro + ceftriaxone this am, then doxy this pm ?drug reaction will change ABX to levofloxacin and monitor
[2021-04-06 20:05] LABS: Glucose, Whole Blood 246 mg/dL (60-115)
[2021-04-06 20:20] LABS: Glucose, Whole Blood 272 mg/dL (60-115)
[2021-04-06] MEDS: Insulin Lispro 100 UNIT/ML 3 ML VIAL SUBCUT (21:19)
[2021-04-06] MEDS: traZODone HCL 50 MG TABLET PO (21:21)
[2021-04-06] MEDS: Sertraline HCL 100 MG TABLET PO (21:21)
[2021-04-06] MEDS: levoFLOXacin/D5W 750 MG/150 ML PIGGYBACK 100 MG IV (21:22)
[2021-04-06 23:02] LABS: Procalcitonin 0.28 ng/mL
[2021-04-07] VITALS (8 sets, daily range): BP systolic 88–160; BP diastolic 48–67; PULSE 67–99; RESP 15–20; TEMP 36.1–38.1; O2SAT 95–99
[2021-04-07] MEDS: 0.9 % Sodium Chloride Flush 3 ML SYRINGE IVFLUSH ×4 (00:08→21:05)
[2021-04-07] MEDS: diphenhydrAMINE HCL 50 MG/ML VIAL IVPUSH (03:23)
[2021-04-07] MEDS: Ibuprofen 600 MG TABLET PO (03:25)
[2021-04-07] MEDS: Levothyroxine Sodium 112 MCG TABLET PO (05:29)
[2021-04-07 06:09] LABS: VBG Base Excess 1.5 mmol/L; VBG HCO3 24 mmol/L (22-26); VBG pCO2 33 mmHg; VBG pH 7.47 (7.32-7.43); VBG pO2 103 mmHg
[2021-04-07 06:09] LABS: Venous Blood Gas Refer to POC result
[2021-04-07 06:15] LABS: Hematocrit 27.3 % (37.0-47.0); Hemoglobin 8.6 g/dl (12.0-16.0); Mean Corpuscular HGB Conc 31.5 g/dl (31.0-35.0); Mean Corpuscular Hemoglobin 32.1 pg (27.0-33.0); Mean Corpuscular Volume 101.9 fL (80.0-98.0); Mean Platelet Volume 11.1 fL (9.4-12.3); Platelet Count 108 X10*3/uL (160-400); Red Blood Count 2.68 X10*6/uL (4.20-5.50); Red Cell Distribution Width 16.3 % (11.0-16.0); White Blood Count 6.9 X10*3/uL (4.8-10.8)
[2021-04-07 06:56] LABS: Anion Gap 11 (12-20); Blood Urea Nitrogen 18 mg/dL (9-16); Calcium 8.3 mg/dL (8.4-10.2); Carbon Dioxide 25 mmol/L (22-29); Chloride 110 mmol/L (96-108); Creatinine Clr Calc Pharmacy 52.9; Estimated Glomerular Filt Rate 52; Glucose Random 192 mg/dL (60-115); Potassium 3.9 mmol/L (3.3-5.1); Sodium 142 mmol/L (135-145)
--- NOTE | 2021-04-07 06:59 | PM.EVENT ---
Event Note Date of Service: 04/18/21 Event Note: pt rash stable, but has developed some hives around the briefs. benadryl given
--- NOTE | 2021-04-07 07:34 | PC.NURSE ---
PATIENT NOTED THIS 11-7 SHIFT TO BE ALERT TO SELF ONLY, RECEIVED CALL FROM LAB TIMES 2 WITH BLOOD CULTURES GRAM POSITIVE COCCI IN CHAINS, FIRST THE 1 SET, THEN SET #2. SCATTERED BODY REDNESS NOTED AT BILAT GROIN, ARMPITS AND LOWER ABDOMEN. TEMPERATURE STARTED AT 98.0-100.5-100-99.9. HOSPITALIST CAME TO BEDSIDE AND ORDERED IVP BENADRYL AND PO IBUPROFEN WITH BOTH GIVEN AT 0330. PATIENT NOTED NOT TO BE SCRATCHING AND DENIED PAIN OR DISCOMFORTS. REPOSITIONED, SKIN CARE, INCONTINENCE CARE, AND HOB ELEV. PT WEARING OXYGEN AT 5L/M N/C O2 SATS STABLE AND ST/THEN SR ON TELE MONITOR. MONITORED FREQUENTLY AND NO NOTED S/SX RESP DISTRESS NOTED.
[2021-04-07 07:35] LABS: Glucose, Whole Blood 173 mg/dL (60-115)
[2021-04-07] MEDS: Divalproex Sodium 250 MG TABLET.DR 750 MG PO (08:33)
[2021-04-07] MEDS: Atorvastatin Calcium 20 MG TABLET PO (08:33)
[2021-04-07] MEDS: risperiDONE 0.5 MG TABLET PO ×3 (08:34→17:02)
[2021-04-07] MEDS: Pregabalin 75 MG CAPSULE PO (08:34)
[2021-04-07] MEDS: Docusate Sodium 100 MG CAPSULE PO (08:34)
[2021-04-07] MEDS: Baclofen 10 MG TABLET PO ×3 (08:34→17:02)
[2021-04-07] MEDS: Furosemide 40 MG TABLET PO (08:34)
[2021-04-07] MEDS: Insulin Lispro 100 UNIT/ML 3 ML VIAL SUBCUT ×4 (08:34→20:16)
[2021-04-07] MEDS: Famotidine 20 MG TABLET PO (08:34)
[2021-04-07] MEDS: Magnesium Oxide 400 MG TABLET PO ×2 (08:34→17:02)
[2021-04-07] MEDS: rifAXIMin 550 MG TABLET PO ×3 (08:34→20:16)
[2021-04-07] MEDS: Lactulose 20 GM/30 ML SOLUTION PO ×2 (08:35→17:01)
[2021-04-07] MEDS: Insulin Glargine,Hum.rec.anlog 100 UNIT/ML 10 ML VIAL 40 UNIT SUBCUT (08:35)
[2021-04-07 09:24] LABS: Folate 19.1 ng/mL (> or = 4.0); Vitamin B12 459 pg/mL (200-900)
--- NOTE | 2021-04-07 09:29 | P.CDIC_ITS ---
CDI Concurrent Query Documentation Clarification: PHYSICIAN'S DOCUMENTATION REQUEST Date of Query: 04/07/21929 Patient Name: Christina Ching Admit Date: 04/06/21 Dear Doctor, A review of the medical record indicates additional documentation may be needed. Please review below and update the documentation accordingly. Clinical Indicators: Risk Factors/Clinical Indicators/Treatments Respiratory rate range 24 - 30 short of breath, SAT 87% room air, 15L non- rebreather placed and SAT 96% Per ED note, mild to moderate respiratory distress Per H&P: Hypoxia Recognized standard criteria for respiratory failure includes: (Source: [facility] Dec 2012) ABGs (1 or more) Symptoms: ? PO2 <60 or RA SpO2 <91% ? Tachypnea, SOB, dyspnea ? PcO2 >50 and pH <7.35 ? Pallor or cyanosis ? pO2 decrease or pcO2 increase ? Anxiety or restlessness by 10 mm/Hg from baseline if known ? Use of accessory muscles ? Retractions (grunting in newborns) ? Unable to speak in complete sentences P/F ratio < 300 Supplemental O2 requirement of 40% or more Intubation is not required Clarify which of the following accurately represents the patient's respiratory status: * Acute respiratory failure * Hypoxia * Other (please specify) * Unable to determine Please include type if known: * Hypoxic * Hypercapnic * Hypoxic and hypercapnic * Unable to determine Use of terms such as suspected, likely, concern for, or probable (associated with a specific diagnosis that is being evaluated, monitored, or treated as if it exists) are acceptable and can be coded in the inpatient setting, when documented at the time of discharge. Thank you, Fidelia Nam RN Extension: [phone] Please use your independent medical judgment in providing your response. THIS QUERY IS PART OF THE PERMANENT MEDICAL RECORD Provider Response: Other Other Diagnosis: acute hypoxic respiratory failure secondary to pneumonia
--- NOTE | 2021-04-07 10:52 | P.PNIM_ITS ---
Subjective Subjective Date of Service: 04/07/21 Interval History: No acute issues overnight Review of Systems Denies CP Admits to SOB with minimal exertion Denies N/V/D Physical Exam Vital Signs: Vital Signs: Last Vital Signs Temp 97.4 F 04/07/21 08:00 Pulse 67 04/07/21 08:00 Resp 18 04/07/21 08:00 BP 160/67 H 04/07/21 08:00 Pulse Ox 98 04/07/21 08:00 BMI result Body Mass Index 27.3 Const: Other: No acute issues Resp: Other: Scattered exp whezes with crackles bilat bases Cardio: Other: -S4 +S1/S2 -S3 MRG Extrem: Other: no edema bilat Objective Data Active Medications Atorvastatin Calcium (Atorvastatin Calcium 20 Mg Tablet) 20 mg PO DAILY [facility] Last Admin: 04/07/21 08:33 Dose: 20 mg Documented by: ANUP Baclofen (Baclofen 10 Mg Tablet) 10 mg PO TID@0900,1300,1700 [facility] Last Admin: 04/07/21 08:34 Dose: 10 mg Documented by: ANUP Dextrose (Dextrose 50 % 25 Gm/50 Ml Syringe) 25 gm IVPUSH Q15M PRN; Protocol PRN Reason: per Hypoglycemia Standing Ord. Divalproex Sodium (Divalproex Sodium 250 Mg Tablet.Dr) 750 mg PO DAILY [facility] Last Admin: 04/07/21 08:33 Dose: 750 mg Documented by: ANUP Docusate Sodium (Docusate Sodium 100 Mg Capsule) 100 mg PO DAILY [facility] Last Admin: 04/07/21 08:34 Dose: 100 mg Documented by: ANUP Enoxaparin Sodium (Enoxaparin Sodium 40 Mg/0.4 Ml Syringe) 40 mg SUBCUT Q24H [facility] Last Admin: 04/06/21 12:45 Dose: 40 mg Documented by: COOPEB Famotidine (Famotidine 20 Mg Tablet) 20 mg PO DAILY [facility] Last Admin: 04/07/21 08:34 Dose: 20 mg Documented by: ANUP Furosemide (Furosemide 40 Mg Tablet) 40 mg PO DAILY [facility]; Protocol Last Admin: 04/07/21 08:34 Dose: 40 mg Documented by: ANUP Glucose (Glucose Gel 15 Gm Gel..Gram.) 15 gm PO Q15M PRN; Protocol PRN Reason: per Hypoglycemia Standing Ord. Levofloxacin (Levaquin) 750 mg in 150 mls @ 100 mls/hr IV Q48H [facility] Last Infusion: 04/06/21 23:35 Dose: 0 mls/hr Documented by: CHAVA Insulin Glargine (Insulin Glargine,Hum.Rec.Anlog 100 Unit/Ml 10 Ml Vial) 40 unit SUBCUT DAILY [facility] Last Admin: 04/07/21 08:35 Dose: 40 unit Documented by: ANUP Insulin Human Lispro (Insulin Lispro 100 Unit/Ml 3 Ml Vial) 0 unit SUBCUT QIDACHS [facility]; Protocol Last Admin: 04/07/21 08:34 Dose: 4 unit Documented by: ANUP Lactulose (Lactulose 20 Gm/30 Ml Solution) 20 gm PO BID@0900,1700 [facility] Last Admin: 04/07/21 08:35 Dose: 20 gm Documented by: ANUP Levothyroxine Sodium (Levothyroxine Sodium 112 Mcg Tablet) 112 mcg PO DAILY@0600 [facility] Last Admin: 04/07/21 05:29 Dose: 112 mcg Documented by: MARLEE Magnesium Oxide (Magnesium Oxide 400 Mg Tablet) 400 mg PO BID@0900,1700 [facility] Last Admin: 04/07/21 08:34 Dose: 400 mg Documented by: ANUP Ondansetron HCl (Ondansetron Hcl 4 Mg/2 Ml Vial) 4 mg IVPUSH Q8H PRN PRN Reason: Nausea and Vomiting Pharmacy Consult (Consult Rx Perform Med Rec) 1 each MISCELLANE ONCE PRN PRN Reason: Consult order Pregabalin (Pregabalin 75 Mg Capsule) 75 mg PO DAILY [facility] Last Admin: 04/07/21 08:34 Dose: 75 mg Documented by: ANUP Rifaximin (Rifaximin 550 Mg Tablet) 550 mg PO TID [facility] Last Admin: 04/07/21 08:34 Dose: 550 mg Documented by: ANUP Risperidone (Risperidone 0.5 Mg Tablet) 0.5 mg PO TID@0900,1300,1700 [facility] Last Admin: 04/07/21 08:34 Dose: 0.5 mg Documented by: ANUP Sertraline HCl (Sertraline Hcl 100 Mg Tablet) 100 mg PO BEDTIME [facility] Last Admin: 04/06/21 21:21 Dose: 100 mg Documented by: CHAVA Sodium Chloride (0.9 % Sodium Chloride Flush 3 Ml Syringe) 3 ml IVFLUSH QSHIFT [facility] Last Admin: 04/07/21 08:35 Dose: 3 ml Documented by: ANUP Spironolactone (Spironolactone 25 Mg Tablet) 50 mg PO DAILY@1300 [facility]; Protocol Last Admin: 04/06/21 12:42 Dose: Not Given Documented by: OMI Non-Admin Reason: Physician Held Med Trazodone HCl (Trazodone Hcl 50 Mg Tablet) 50 mg PO BEDTIME [facility] Last Admin: 04/06/21 21:21 Dose: 50 mg Documented by: CHAVA Labs CBC & Chem 7: 04/07/21 06:00 04/07/21 06:00 Labs: Laboratory Results - last 24 hr 04/06/21 04/06/21 04/06/21 07:13 07:13 07:13 MCV MCH MCHC RDW Plt Count MPV Absolute Nucleated RBC Nucleated RBC % (auto) VBG pH VBG pCO2 VBG pO2 VBG HCO3 VBG O2 Saturation VBG Base Excess Anion Gap Estim Creat Clear Calc Estimated GFR POC Glucose Random Glucose Estimat Average Glucose 209 Hemoglobin A1c % 8.9 Lactic Acid F/U @ 2Hr Lactic Acid F/U @ 4Hr Calcium C-Reactive Protein 9.17 H Vitamin B12 Folate Procalcitonin 0.28 04/06/21 04/06/21 04/06/21 07:13 10:26 12:41 MCV MCH MCHC RDW Plt Count MPV Absolute Nucleated RBC Nucleated RBC % (auto) VBG pH VBG pCO2 VBG pO2 VBG HCO3 VBG O2 Saturation VBG Base Excess Anion Gap Estim Creat Clear Calc Estimated GFR POC Glucose 270 H Random Glucose Estimat Average Glucose Hemoglobin A1c % Lactic Acid F/U @ 2Hr 3.5 H* Lactic Acid F/U @ 4Hr Calcium C-Reactive Protein Vitamin B12 Cancelled Folate Cancelled Procalcitonin 04/06/21 04/06/21 04/06/21 13:06 16:12 18:49 MCV MCH MCHC RDW Plt Count MPV Absolute Nucleated RBC Nucleated RBC % (auto) VBG pH VBG pCO2 VBG pO2 VBG HCO3 VBG O2 Saturation VBG Base Excess Anion Gap Estim Creat Clear Calc Estimated GFR POC Glucose 271 H 246 H Random Glucose Estimat Average Glucose Hemoglobin A1c % Lactic Acid F/U @ 2Hr Lactic Acid F/U @ 4Hr 1.8 Calcium C-Reactive Protein Vitamin B12 Folate Procalcitonin 04/06/21 04/07/21 04/07/21 20:12 06:00 06:00 MCV 101.9 H MCH 32.1 MCHC 31.5 RDW 16.3 H Plt Count 108 L MPV 11.1 Absolute Nucleated RBC 0.000 Nucleated RBC % (auto) 0.0 VBG pH VBG pCO2 VBG pO2 VBG HCO3 VBG O2 Saturation VBG Base Excess Anion Gap 11 L Estim Creat Clear Calc 52.9 Estimated GFR 52 POC Glucose 272 H Random Glucose 192 H Estimat Average Glucose Hemoglobin A1c % Lactic Acid F/U @ 2Hr Lactic Acid F/U @ 4Hr Calcium 8.3 L D C-Reactive Protein Vitamin B12 Folate Procalcitonin 04/07/21 04/07/21 04/07/21 06:00 06:04 07:29 MCV MCH MCHC RDW Plt Count MPV Absolute Nucleated RBC Nucleated RBC % (auto) VBG pH 7.47 H VBG pCO2 33 VBG pO2 103 VBG HCO3 24 VBG O2 Saturation 98.0 VBG Base Excess 1.5 Anion Gap Estim Creat Clear Calc Estimated GFR POC Glucose 173 H Random Glucose Estimat Average Glucose Hemoglobin A1c % Lactic Acid F/U @ 2Hr Lactic Acid F/U @ 4Hr Calcium C-Reactive Protein Vitamin B12 459 Folate 19.1 Procalcitonin Microbiology Microbiology Results: Microbiology 04/06/21 07:30 Blood Culture - Preliminary Blood - Venous Prelim: GPC Gram Stain only 04/06/21 07:15 Blood Culture - Preliminary Blood - Venous Prelim: GPC Gram Stain only Assessment and Plan (1) Pneumonia: Status: Acute (2) Severe sepsis: Status: Acute (3) Cirrhosis of liver with ascites: Status: Acute (4) Hepatic encephalopathy: Status: Acute Plan 61yo long-term SNF resident with bipolar 1, PTSD, cirrhosis with ascites/portal hypertension and hepatic encephalopathy, GERD, hypothyroidism, and DM2 sent in with AMS, dyspnea, and hypoxia and found to have severe sepsis from pneumonia. 1.Severe sepsis (multifocal pneumonia) - ceftriaxone + doxycycline - follow BCs - FENCE ERECTOR SUPERVISOR evaluation done - isotonic IV fluid 2.Septic encephalopathy - responding to therapies - follow clinically 3. DM2 - acceptable control on current therapies - adjust as indicated 4.Cirrhosis with ascites - continue spironolactone, furosemide 5.Hepatic encephalopathy - continue rifaximin, lactulose 6.Bipolar 1/PTSD - continue sertraline, risperidone, trazodone, valproate LMWH Quality Stroke Does the patient have a stroke diagnosis?: No VTE Prior VTE?: No VTE Risk Level:: Medical - moderate - high VTE Device Contraindication: N/A - Device Ordered VTE Drug Contraindication: N/A - Med Ordered
[2021-04-07 11:42] LABS: Glucose, Whole Blood 197 mg/dL (60-115)
--- NOTE | 2021-04-07 11:49 | MHC.SL.SWA ---
Speech Pathologist Impression: Risk of Aspiration Oralpharyngeal Dysphagia Risk of Aspiration Due to: History of Pneumonia Dysphasia Diet Status: CHANGE Liquid Consistency and Strategies for Safe Swallow: Liquid Intake Recommendation: [place] Thick Liquid Intake Strategies: Small Sips No Straws Solid Food Consistency: Dietary Recommendations: Grnd/Mech Altered (NDD2) Additional Modifications to Solid Foods: Recommend DOWNGRADE solids to GROUND/MECH ALTERED (NDD2) and UPGRADE liquids to NECTAR THICK, pills to be CRUSHED in PUREE. Patient requires TOTAL 1:1 ASSISTANCE FEEDING- Recommend oral cavity check, alternate bite of food with liquid wash as needed to clear any residue, no straws. Aspiration precautions apply. Diet order updated in [employer] by CREAM RIPENER. Updated RN, MD, RD via [employer] Message. Oral Medication Intake: Crushed with Puree Compensatory Strategies and Precautions to be Taken for Safe Swallow: Sitting Upright (90 deg) No Straw Small Bites and Sips Alternate Liquids/Solids Rate of Ingestion Change Oral Check Supervision While Eating and Drinking for Safe Swallow: Total Assistance Swallowing Recommended Treatments: Compens. Strategy Educat. Recommendation for Speech: Inpatient Speech Therapy Frequency/Duration: M-F Spray Machine Operator Clinican/Clinical Fellow: No Supervisory Statement: I have reviewed and agree with the student/clinical fellow's documentation: N/A Speech Language Pathologist: Margaret Doty M.A., CCC-CREAM RIPENER
[2021-04-07] MEDS: Spironolactone 25 MG TABLET 50 MG PO (12:22)
[2021-04-07] MEDS: Enoxaparin Sodium 40 MG/0.4 ML SYRINGE SUBCUT (13:44)
--- NOTE | 2021-04-07 15:53 | MHC.CM.PN ---
IMM 04/07/21, EMR REVIEWED, PT ADMITTED W/MULTIFOCAL PNA, PT IS A LTC PT AT [facility], PT ABLE TO ANSWER SOME QUESTIONS HOWEVER WAS GROGGY AND KEPT FALLING ASLEEP, CM ATTEMPTED TO CALL PTS HCP YOGESH SCHNEIDER AT 3:40PM [phone], NO ANSWER MESSAGE LEFT W/CM CONTACT INFO. PCP IS JACKY BALDWIN. COPY OF HCP HAS BEEN REQUESTED. D/C PLAN: RETURN TO [facility] VIA [facility] BLS TRANSPORT.
[2021-04-07 16:43] LABS: Glucose, Whole Blood 203 mg/dL (60-115)
[2021-04-07] MEDS: Albumin Human 25 % 100 ML IV ×2 (17:03→21:03)
--- NOTE | 2021-04-07 17:03 | PM.EVENT ---
Event Note Date of Service: 04/07/21 Event Note: CTSP for BP of 88/60. Exam unchanged since am. Repeat BP 102/57. Albumin ordered secondary to cirrhosis
[2021-04-07 20:09] LABS: Glucose, Whole Blood 183 mg/dL (60-115)
[2021-04-07] MEDS: Sertraline HCL 100 MG TABLET PO (20:16)
[2021-04-07] MEDS: Lactated Ringers 1,000 ML 999 ML IV (20:35)
[2021-04-08 03:31] VITALS: BP 118/53; PULSE 89; RESP 16; TEMP 35.9; O2SAT 100
[2021-04-08] MEDS: Albumin Human 25 % 100 ML IV ×2 (04:40→10:04)
[2021-04-08] MEDS: Levothyroxine Sodium 112 MCG TABLET PO (05:40)
[2021-04-08 06:10] LABS: MANUAL DIFF FLAG NO
[2021-04-08 06:14] LABS: Basophils Percent Auto 0.1 % (0-2); Eosinophils Absolute Auto 0.2 X10*3/uL (0.0-0.4); Eosinophils Percent Auto 2.2 % (0-4); Hematocrit 29.7 % (37.0-47.0); Hemoglobin 9.1 g/dl (12.0-16.0); Imm Gran Abs Auto 0.04 X10*3/uL (0.00-0.03); Imm Gran Pct Auto 0.6 % (0.0-0.4); Lymphocytes Percent Auto 14.6 % (20-40); Mean Corpuscular HGB Conc 30.6 g/dl (31.0-35.0); Mean Corpuscular Hemoglobin 31.9 pg (27.0-33.0); Mean Corpuscular Volume 104.2 fL (80.0-98.0); Mean Platelet Volume 11.4 fL (9.4-12.3); Monocytes Absolute Auto 0.6 X10*3/uL (0.1-1.2); Monocytes Percent Auto 8.5 % (2-11); Platelet Count 100 X10*3/uL (160-400); Red Blood Count 2.85 X10*6/uL (4.20-5.50); Red Cell Distribution Width 16.9 % (11.0-16.0); White Blood Count 6.7 X10*3/uL (4.8-10.8)
[2021-04-08 06:48] LABS: Alanine Aminotransferase 23 U/L (0-31); Albumin Level 3.8 g/dL (3.5-5.0); Alkaline Phosphatase 53 U/L (39-117); Anion Gap 14 (12-20); Aspartate Amino Transferase 41 U/L (5-31); Bilirubin Total 1.3 mg/dL (0.0-1.0); Blood Urea Nitrogen 22 mg/dL (9-16); Calcium 9.5 mg/dL (8.4-10.2); Carbon Dioxide 25 mmol/L (22-29); Chloride 109 mmol/L (96-108); Creatinine Clr Calc Pharmacy 40.4; Estimated Glomerular Filt Rate 38; Glucose Fasting 127 mg/dL (60-99); Sodium 144 mmol/L (135-145)
[2021-04-08 07:19] VITALS: BP 117/58; PULSE 99; RESP 18; TEMP 36.6; O2SAT 99
[2021-04-08 07:39] LABS: Glucose, Whole Blood 170 mg/dL (60-115)
[2021-04-08] MEDS: Divalproex Sodium 250 MG TABLET.DR 750 MG PO (08:29)
[2021-04-08] MEDS: Docusate Sodium 100 MG CAPSULE PO (08:29)
[2021-04-08] MEDS: Atorvastatin Calcium 20 MG TABLET PO (08:30)
[2021-04-08] MEDS: rifAXIMin 550 MG TABLET PO ×2 (08:30→21:20)
[2021-04-08] MEDS: Pregabalin 75 MG CAPSULE PO (08:30)
[2021-04-08] MEDS: Magnesium Oxide 400 MG TABLET PO (08:30)
[2021-04-08] MEDS: Baclofen 10 MG TABLET PO ×2 (08:30→12:09)
[2021-04-08] MEDS: risperiDONE 0.5 MG TABLET PO ×2 (08:30→12:09)
[2021-04-08] MEDS: Lactulose 20 GM/30 ML SOLUTION PO (08:30)
[2021-04-08] MEDS: Famotidine 20 MG TABLET PO (08:30)
[2021-04-08] MEDS: Insulin Glargine,Hum.rec.anlog 100 UNIT/ML 10 ML VIAL 40 UNIT SUBCUT (08:31)
[2021-04-08] MEDS: Insulin Lispro 100 UNIT/ML 3 ML VIAL SUBCUT ×4 (08:31→21:19)
--- NOTE | 2021-04-08 11:20 | MHC.SLORD ---
Speech Language Pathology Order Status: PRODUCTION ADMINISTRATIVE ASSISTANT attempted to see patient for PO trials- Patient sleeping- would not stay awake. Patient is on ground/[facility] altered solids (NDD2)/ nectar thick liquids, 1:1 assistance, crushed pills. PRODUCTION ADMINISTRATIVE ASSISTANT will continue to follow.
[2021-04-08 11:27] VITALS: BP 112/57; PULSE 98; RESP 18; TEMP 37.1; O2SAT 100
[2021-04-08 11:40] LABS: Glucose, Whole Blood 318 mg/dL (60-115)
[2021-04-08] MEDS: Enoxaparin Sodium 40 MG/0.4 ML SYRINGE SUBCUT (12:09)
--- NOTE | 2021-04-08 13:57 | P.PNIM_ITS ---
Subjective Subjective Date of Service: 04/08/21 Interval History: no acute issues overnight. Review of Systems Denies CP Denies SOB Denies N/V/D Physical Exam Vital Signs: Vital Signs: Last Vital Signs Temp 98.8 F 04/08/21 11:27 Pulse 98 04/08/21 11:27 Resp 18 04/08/21 11:27 BP 112/57 L 04/08/21 11:27 Pulse Ox 100 04/08/21 11:27 BMI result Body Mass Index 27.3 Const: Other: No acute distress Resp: Other: Coarse rhonchi...clear with cough Cardio: Other: -S4 +S1/S2 -S3 MRG GI: Other: soft NT/ND NABS x 4 quads Extrem: Other: no edema bilaat Objective Data Active Medications Atorvastatin Calcium (Atorvastatin Calcium 20 Mg Tablet) 20 mg PO DAILY REPLACED BY [facility] Last Admin: 04/08/21 08:30 Dose: 20 mg Documented by: ANUP Baclofen (Baclofen 10 Mg Tablet) 10 mg PO TID@0900,1300,1700 REPLACED BY [facility] Last Admin: 04/08/21 12:09 Dose: 10 mg Documented by: ANUP Dextrose (Dextrose 50 % 25 Gm/50 Ml Syringe) 25 gm IVPUSH Q15M PRN; Protocol PRN Reason: per Hypoglycemia Standing Ord. Divalproex Sodium (Divalproex Sodium 250 Mg Tablet.) 750 mg PO DAILY REPLACED BY [facility] Last Admin: 04/08/21 08:29 Dose: 750 mg Documented by: ANUP Docusate Sodium (Docusate Sodium 100 Mg Capsule) 100 mg PO DAILY REPLACED BY [facility] Last Admin: 04/08/21 08:29 Dose: 100 mg Documented by: ANUP Enoxaparin Sodium (Enoxaparin Sodium 40 Mg/0.4 Ml Syringe) 40 mg SUBCUT Q24H REPLACED BY [facility] Last Admin: 04/08/21 12:09 Dose: 40 mg Documented by: ANUP Famotidine (Famotidine 20 Mg Tablet) 20 mg PO DAILY REPLACED BY [facility] Last Admin: 04/08/21 08:30 Dose: 20 mg Documented by: ANUP Furosemide (Furosemide 40 Mg Tablet) 40 mg PO DAILY REPLACED BY [facility]; Protocol Last Admin: 04/08/21 10:03 Dose: Not Given Documented by: ANUP Non-Admin Reason: continuous low blood pressure Glucose (Glucose Gel 15 Gm Gel..Gram.) 15 gm PO Q15M PRN; Protocol PRN Reason: per Hypoglycemia Standing Ord. Levofloxacin (Levaquin) 750 mg in 150 mls @ 100 mls/hr IV Q48H REPLACED BY [facility] Last Infusion: 04/06/21 23:35 Dose: 0 mls/hr Documented by: CHAVA Insulin Glargine (Insulin Glargine,Hum.Rec.Anlog 100 Unit/Ml 10 Ml Vial) 40 unit SUBCUT DAILY REPLACED BY [facility] Last Admin: 04/08/21 08:31 Dose: 40 unit Documented by: ANUP Insulin Human Lispro (Insulin Lispro 100 Unit/Ml 3 Ml Vial) 0 unit SUBCUT QIDACHS REPLACED BY [facility]; Protocol Last Admin: 04/08/21 12:09 Dose: 10 unit Documented by: ANUP Lactulose (Lactulose 20 Gm/30 Ml Solution) 20 gm PO BID@0900,1700 REPLACED BY [facility] Last Admin: 04/08/21 08:30 Dose: 20 gm Documented by: ANUP Levothyroxine Sodium (Levothyroxine Sodium 112 Mcg Tablet) 112 mcg PO DAILY@0600 REPLACED BY [facility] Last Admin: 04/08/21 05:40 Dose: 112 mcg Documented by: NEHAL Magnesium Oxide (Magnesium Oxide 400 Mg Tablet) 400 mg PO BID@0900,1700 REPLACED BY [facility] Last Admin: 04/08/21 08:30 Dose: 400 mg Documented by: ANUP Ondansetron HCl (Ondansetron Hcl 4 Mg/2 Ml Vial) 4 mg IVPUSH Q8H PRN PRN Reason: Nausea and Vomiting Pharmacy Consult (Consult Rx Perform Med Rec) 1 each MISCELLANE ONCE PRN PRN Reason: Consult order Pregabalin (Pregabalin 75 Mg Capsule) 75 mg PO DAILY REPLACED BY [facility] Last Admin: 04/08/21 08:30 Dose: 75 mg Documented by: ANUP Rifaximin (Rifaximin 550 Mg Tablet) 550 mg PO TID REPLACED BY [facility] Last Admin: 04/08/21 08:30 Dose: 550 mg Documented by: ANUP Risperidone (Risperidone 0.5 Mg Tablet) 0.5 mg PO TID@0900,1300,1700 REPLACED BY [facility] Last Admin: 04/08/21 12:09 Dose: 0.5 mg Documented by: ANUP Sertraline HCl (Sertraline Hcl 100 Mg Tablet) 100 mg PO BEDTIME REPLACED BY [facility] Last Admin: 04/07/21 20:16 Dose: 100 mg Documented by: NEHAL Sodium Chloride (0.9 % Sodium Chloride Flush 3 Ml Syringe) 3 ml IVFLUSH QSHIFT REPLACED BY [facility] Last Admin: 04/08/21 08:31 Dose: Not Given Documented by: ANUP Non-Admin Reason: IV Running Spironolactone (Spironolactone 25 Mg Tablet) 50 mg PO DAILY@1300 REPLACED BY [facility]; Protocol Last Admin: 04/08/21 12:11 Dose: Not Given Documented by: ANUP Non-Admin Reason: Physician Held Med Trazodone HCl (Trazodone Hcl 50 Mg Tablet) 50 mg PO BEDTIME REPLACED BY [facility] Last Admin: 04/07/21 20:17 Dose: Not Given Documented by: NEHAL Non-Admin Reason: Patient Asleep Labs CBC & Chem 7: 04/08/21 05:56 04/08/21 05:56 Labs: Laboratory Results - last 24 hr 04/07/21 04/07/21 04/08/21 16:36 20:05 05:56 MCV 104.2 H MCH 31.9 MCHC 30.6 L RDW 16.9 H Plt Count 100 L MPV 11.4 Immature Gran % (Auto) 0.6 H Neut % (Auto) 74.0 H Lymph % (Auto) 14.6 L [place] % (Auto) 8.5 Eos % (Auto) 2.2 Baso % (Auto) 0.1 Lymph # (Auto) 1.0 L [place] # (Auto) 0.6 Eos # (Auto) 0.2 Baso # (Auto) 0.0 Abs Immat Gran (auto) 0.04 H Absolute Neuts (auto) 5.0 Absolute Nucleated RBC 0.000 Nucleated RBC % (auto) 0.0 Anion Gap Estim Creat Clear Calc Estimated GFR POC Glucose 203 H 183 H Fasting Glucose Calcium Total Bilirubin AST ALT Alkaline Phosphatase Total Protein Albumin 04/08/21 04/08/21 04/08/21 05:56 07:23 11:24 MCV MCH MCHC RDW Plt Count MPV Immature Gran % (Auto) Neut % (Auto) Lymph % (Auto) [place] % (Auto) Eos % (Auto) Baso % (Auto) Lymph # (Auto) [place] # (Auto) Eos # (Auto) Baso # (Auto) Abs Immat Gran (auto) Absolute Neuts (auto) Absolute Nucleated RBC Nucleated RBC % (auto) Anion Gap 14 Estim Creat Clear Calc 40.4 Estimated GFR 38 POC Glucose 170 H 318 H Fasting Glucose 127 H Calcium 9.5 D Total Bilirubin 1.3 H AST 41 H D ALT 23 Alkaline Phosphatase 53 D Total Protein 8.0 Albumin 3.8 Microbiology Microbiology Results: Microbiology 04/06/21 07:15 Blood Culture - Preliminary Blood - Venous Prelim: GPC Gram Stain only 04/06/21 07:30 Blood Culture - Preliminary Blood - Venous Prelim: GPC Gram Stain only 04/06/21 Unknown Urine Culture - Final Urine clean catch - Urine li top Klebsiella pneumoniae 04/07/21 03:44 Blood Culture - Preliminary Blood - Venous No growth after 24 hours. 04/07/21 03:44 Blood Culture - Preliminary Blood - Venous No growth after 24 hours. Assessment and Plan (1) Pneumonia: Status: Acute (2) Cirrhosis of liver with ascites: Status: Acute (3) Hepatic encephalopathy: Status: Acute Plan 61yo F long-term care resident of [facility] SNF with bipolar 1, PTSD, cirr hosis with ascites/portal hypertension and hepatic encephalopathy, GERD, hypothyroidism, and DM2 was noted by have dyspnea and altered mental status over the last 3 days.? Today, oxygen saturation was 87% on room air.? EMS was called.? On presentation to the ED, she was septic by virtue of fever to 103 and tachycardia in the 110s.? CTA showed RUL/LLL pneumonia.? Covid-19 MELONIE negative.? Lactate 2.2.? She was given IV ceftriaxone and azithromycin and a liter of IV NS.? She was hyperglycemic to 365 and was given 10 units of IV regular insulin 61yo long-term SNF resident with bipolar 1, PTSD, cirrhosis with ascites/portal hypertension and hepatic encephalopathy, GERD, hypothyroidism, and DM2 sent in with AMS, dyspnea, and hypoxia and found to have severe sepsis from pneumonia. 1.Multifocal pneumonia - ceftriaxone + doxycycline - trend PCT - DIRECTOR FUNDS DEVELOPMENT evaluation noyed - isotonic IV fluid 2.Sseptic encephalopathy - improved with treatment of #1 3. DM2 -acceptable control - basal/bolus insulin, 4.Cirrhosis with ascites - episode of hypotension responded to Albumin - continue spironolactone, furosemide 5.Hepatic encephalopathy - continue rifaximin, lactulose 6. Bipollar 1/PTSD - continue sertraline, risperidone, trazodone, valproate # VTE ppx - SCDs, LMWH Quality Stroke Does the patient have a stroke diagnosis?: No VTE Prior VTE?: No VTE Risk Level:: Medical - moderate - high VTE Device Contraindication: N/A - Device Ordered VTE Drug Contraindication: N/A - Med Ordered
[2021-04-08 15:44] VITALS: BP 93/55; PULSE 90; RESP 18; TEMP 37; O2SAT 94
[2021-04-08 16:19] LABS: Glucose, Whole Blood 178 mg/dL (60-115)
[2021-04-08] MEDS: 0.9 % Sodium Chloride Flush 3 ML SYRINGE IVFLUSH ×2 (16:19→21:20)
[2021-04-08 19:47] VITALS: BP 154/68; PULSE 113; RESP 18; TEMP 37.1; O2SAT 96
[2021-04-08 20:11] LABS: Glucose, Whole Blood 153 mg/dL (60-115)
[2021-04-08] MEDS: levoFLOXacin/D5W 750 MG/150 ML PIGGYBACK 100 MG IV (21:18)
[2021-04-08] MEDS: Sertraline HCL 100 MG TABLET PO (21:20)
[2021-04-08] MEDS: traZODone HCL 50 MG TABLET PO (21:20)
[2021-04-08 23:43] VITALS: BP 132/61; PULSE 98; RESP 20; TEMP 37.1; O2SAT 96
[2021-04-09] VITALS (9 sets, daily range): BP systolic 109–136; BP diastolic 54–73; PULSE 86–102; RESP 14–22; TEMP 36.1–36.9; O2SAT 95–100
[2021-04-09 06:25] LABS: Hematocrit 26.6 % (37.0-47.0); Hemoglobin 8.1 g/dl (12.0-16.0); Mean Corpuscular HGB Conc 30.5 g/dl (31.0-35.0); Mean Corpuscular Hemoglobin 31.2 pg (27.0-33.0); Mean Corpuscular Volume 102.3 fL (80.0-98.0); Red Cell Distribution Width 16.7 % (11.0-16.0); White Blood Count 7.8 X10*3/uL (4.8-10.8)
[2021-04-09 06:26] LABS: Platelet Count 90 X10*3/uL (160-400)
[2021-04-09] MEDS: Levothyroxine Sodium 112 MCG TABLET PO (06:40)
[2021-04-09 06:52] LABS: Alanine Aminotransferase 20 U/L (0-31); Albumin Level 3.5 g/dL (3.5-5.0); Alkaline Phosphatase 54 U/L (39-117); Anion Gap 12 (12-20); Aspartate Amino Transferase 35 U/L (5-31); Blood Urea Nitrogen 19 mg/dL (9-16); Calcium 9.5 mg/dL (8.4-10.2); Carbon Dioxide 27 mmol/L (22-29); Chloride 110 mmol/L (96-108); Creatinine Clr Calc Pharmacy 50.1; Estimated Glomerular Filt Rate 49; Glucose Fasting 159 mg/dL (60-99); Potassium 3.8 mmol/L (3.3-5.1); Sodium 145 mmol/L (135-145); Total Protein 7.5 g/dL (6.5-8.0)
[2021-04-09 07:15] LABS: Band Neutrophils Percent 15 % (3-5); Eosinophils Absolute Manual 0.2 X10*3/uL (0.0-0.4); Eosinophils Percent Manual 2 % (0-4); Lymphocytes Absolute Manual 1.6 X10*3/uL (1.2-4.9); Lymphocytes Percent Manual 21 % (20-40); Monocytes Absolute Manual 0.3 X10*3/uL (0.1-1.2); Monocytes Percent Manual 4 % (2-11); Neutrophils Absolute Manual 5.7 X10*3/uL (2.0-8.3); Neutrophils Percent Manual 58 % (45-73); Nucleated Red Blood Cells 1 /100WBC (0-0)
[2021-04-09 07:17] LABS: RBC Morphology NOTED
[2021-04-09 07:18] LABS: Hypochromasia 1+ (5-14) /OIF; Macrocytosis 1+ (5-14) /OIF; Platelet Estimate DECREASED (NORMAL); Platelet Morphology Comment NORMAL
[2021-04-09 07:28] LABS: Glucose, Whole Blood 154 mg/dL (60-115)
[2021-04-09] MEDS: Pregabalin 75 MG CAPSULE PO (07:55)
[2021-04-09] MEDS: Divalproex Sodium 250 MG TABLET.DR 750 MG PO (07:55)
[2021-04-09] MEDS: Baclofen 10 MG TABLET PO ×2 (07:56→13:12)
[2021-04-09] MEDS: Magnesium Oxide 400 MG TABLET PO (07:56)
[2021-04-09] MEDS: rifAXIMin 550 MG TABLET PO ×3 (07:56→20:09)
[2021-04-09] MEDS: Famotidine 20 MG TABLET PO (07:57)
[2021-04-09] MEDS: Docusate Sodium 100 MG CAPSULE PO (07:57)
[2021-04-09] MEDS: Atorvastatin Calcium 20 MG TABLET PO (07:57)
[2021-04-09] MEDS: Furosemide 40 MG TABLET PO (07:58)
[2021-04-09] MEDS: risperiDONE 0.5 MG TABLET PO ×2 (07:58→13:12)
[2021-04-09] MEDS: Insulin Lispro 100 UNIT/ML 3 ML VIAL SUBCUT ×3 (07:59→20:08)
[2021-04-09] MEDS: Lactulose 20 GM/30 ML SOLUTION PO (07:59)
[2021-04-09] MEDS: Insulin Glargine,Hum.rec.anlog 100 UNIT/ML 10 ML VIAL 40 UNIT SUBCUT (08:11)
[2021-04-09] MEDS: 0.9 % Sodium Chloride Flush 3 ML SYRINGE IVFLUSH ×3 (08:11→20:14)
[2021-04-09] MEDS: Mineral OiL enema 133 ML ENEMA PR (10:28)
--- NOTE | 2021-04-09 10:55 | HO.PM.IMPN ---
Subjective Subjective Date of Service: 04/09/21 Interval History: no acute issues overnight. Brighter this am Review of Systems Denies CP Denies SOB Denies N/V/D Physical Exam Vital Signs: Vital Signs: Last Vital Signs Temp 98.5 F 04/09/21 07:17 Pulse 90 04/09/21 07:17 Resp 20 04/09/21 07:17 BP 124/60 04/09/21 07:17 Pulse Ox 99 04/09/21 07:17 BMI result Body Mass Index 27.3 Const: Other: No acute distress Resp: Other: Coarse rhonchi...clear with cough Cardio: Other: -S4 +S1/S2 -S3 MRG GI: Other: soft NT/ND NABS x 4 quads Extrem: Other: no edema bilaat Objective Data Active Medications Atorvastatin Calcium (Atorvastatin Calcium 20 Mg Tablet) 20 mg PO DAILY [facility] Last Admin: 04/09/21 07:57 Dose: 20 mg Documented by: IVAN Baclofen (Baclofen 10 Mg Tablet) 10 mg PO TID@0900,1300,1700 [facility] Last Admin: 04/09/21 07:56 Dose: 10 mg Documented by: IVAN Dextrose (Dextrose 50 % 25 Gm/50 Ml Syringe) 25 gm IVPUSH Q15M PRN; Protocol PRN Reason: per Hypoglycemia Standing Ord. Divalproex Sodium (Divalproex Sodium 250 Mg Tablet.Dr) 750 mg PO DAILY [facility] Last Admin: 04/09/21 07:55 Dose: 750 mg Documented by: IVAN Docusate Sodium (Docusate Sodium 100 Mg Capsule) 100 mg PO DAILY [facility] Last Admin: 04/09/21 07:57 Dose: 100 mg Documented by: IVAN Enoxaparin Sodium (Enoxaparin Sodium 40 Mg/0.4 Ml Syringe) 40 mg SUBCUT Q24H [facility] Last Admin: 04/08/21 12:09 Dose: 40 mg Documented by: ANUP Famotidine (Famotidine 20 Mg Tablet) 20 mg PO DAILY [facility] Last Admin: 04/09/21 07:57 Dose: 20 mg Documented by: IVAN Furosemide (Furosemide 40 Mg Tablet) 40 mg PO DAILY [facility]; Protocol Last Admin: 04/09/21 07:58 Dose: 40 mg Documented by: IVAN Glucose (Glucose Gel 15 Gm Gel..Gram.) 15 gm PO Q15M PRN; Protocol PRN Reason: per Hypoglycemia Standing Ord. Levofloxacin (Levaquin) 750 mg in 150 mls @ 100 mls/hr IV Q48H [facility] Last Infusion: 04/08/21 23:02 Dose: 0 mls/hr Documented by: JULY Insulin Glargine (Insulin Glargine,Hum.Rec.Anlog 100 Unit/Ml 10 Ml Vial) 40 unit SUBCUT DAILY [facility] Last Admin: 04/09/21 08:11 Dose: 40 unit Documented by: IVAN Insulin Human Lispro (Insulin Lispro 100 Unit/Ml 3 Ml Vial) 0 unit SUBCUT QIDACHS [facility]; Protocol Last Admin: 04/09/21 07:59 Dose: 4 unit Documented by: IVAN Lactulose (Lactulose 20 Gm/30 Ml Solution) 20 gm PO BID@0900,1700 [facility] Last Admin: 04/09/21 07:59 Dose: 20 gm Documented by: IVAN Levothyroxine Sodium (Levothyroxine Sodium 112 Mcg Tablet) 112 mcg PO DAILY@0600 [facility] Last Admin: 04/09/21 06:40 Dose: 112 mcg Documented by: JULY Magnesium Oxide (Magnesium Oxide 400 Mg Tablet) 400 mg PO BID@0900,1700 [facility] Last Admin: 04/09/21 07:56 Dose: 400 mg Documented by: IVAN Ondansetron HCl (Ondansetron Hcl 4 Mg/2 Ml Vial) 4 mg IVPUSH Q8H PRN PRN Reason: Nausea and Vomiting Pharmacy Consult (Consult Rx Perform Med Rec) 1 each MISCELLANE ONCE PRN PRN Reason: Consult order Pregabalin (Pregabalin 75 Mg Capsule) 75 mg PO DAILY [facility] Last Admin: 04/09/21 07:55 Dose: 75 mg Documented by: IVAN Rifaximin (Rifaximin 550 Mg Tablet) 550 mg PO TID [facility] Last Admin: 04/09/21 07:56 Dose: 550 mg Documented by: IVAN Risperidone (Risperidone 0.5 Mg Tablet) 0.5 mg PO TID@0900,1300,1700 [facility] Last Admin: 04/09/21 07:58 Dose: 0.5 mg Documented by: IVAN Sertraline HCl (Sertraline Hcl 100 Mg Tablet) 100 mg PO BEDTIME [facility] Last Admin: 04/08/21 21:20 Dose: 100 mg Documented by: JULY Sodium Chloride (0.9 % Sodium Chloride Flush 3 Ml Syringe) 3 ml IVFLUSH QSHIFT [facility] Last Admin: 04/09/21 08:11 Dose: 3 ml Documented by: IVAN Spironolactone (Spironolactone 25 Mg Tablet) 50 mg PO DAILY@1300 [facility]; Protocol Last Admin: 04/08/21 12:11 Dose: Not Given Documented by: ANUP Non-Admin Reason: Physician Held Med Trazodone HCl (Trazodone Hcl 50 Mg Tablet) 50 mg PO BEDTIME [facility] Last Admin: 04/08/21 21:20 Dose: 50 mg Documented by: JULY Labs CBC & Chem 7: 04/09/21 06:02 04/09/21 06:02 Labs: Laboratory Results - last 24 hr 04/08/21 04/08/21 04/08/21 11:24 16:11 20:04 MCV MCH MCHC RDW Plt Count MPV Immature Gran % (Auto) Neut % (Auto) Lymph % (Auto) [place] % (Auto) Eos % (Auto) Baso % (Auto) Lymph # (Auto) [place] # (Auto) Eos # (Auto) Baso # (Auto) Abs Immat Gran (auto) Absolute Neuts (auto) Absolute Nucleated RBC Nucleated RBC % (auto) Neutrophils % (Manual) Band Neutrophils % Lymphocytes % (Manual) Monocytes % (Manual) Eosinophils % (Manual) Abs Neuts (Manual) Lymphocytes # (Manual) Monocytes # (Manual) Eosinophils # (Manual) Nucleated RBCs Platelet Estimate Plt Morphology Comment RBC Morphology Hypochromasia Macrocytosis Anion Gap Estim Creat Clear Calc Estimated GFR POC Glucose 318 H 178 H 153 H Fasting Glucose Calcium Total Bilirubin AST ALT Alkaline Phosphatase Total Protein Albumin 04/09/21 04/09/21 04/09/21 06:02 06:02 07:20 MCV 102.3 H MCH 31.2 MCHC 30.5 L RDW 16.7 H Plt Count 90 L MPV 11.0 Immature Gran % (Auto) Cancelled Neut % (Auto) Cancelled Lymph % (Auto) Cancelled [place] % (Auto) Cancelled Eos % (Auto) Cancelled Baso % (Auto) Cancelled Lymph # (Auto) Cancelled [place] # (Auto) Cancelled Eos # (Auto) Cancelled Baso # (Auto) Cancelled Abs Immat Gran (auto) Cancelled Absolute Neuts (auto) Cancelled Absolute Nucleated RBC 0.000 Nucleated RBC % (auto) 0.0 Neutrophils % (Manual) 58 Band Neutrophils % 15 H Lymphocytes % (Manual) 21 Monocytes % (Manual) 4 Eosinophils % (Manual) 2 Abs Neuts (Manual) 5.7 Lymphocytes # (Manual) 1.6 Monocytes # (Manual) 0.3 Eosinophils # (Manual) 0.2 Nucleated RBCs 1 H Platelet Estimate DECREASED Plt Morphology Comment NORMAL RBC Morphology NOTED Hypochromasia 1+ (5-14) Macrocytosis 1+ (5-14) Anion Gap 12 Estim Creat Clear Calc 50.1 Estimated GFR 49 POC Glucose 154 H Fasting Glucose 159 H Calcium 9.5 Total Bilirubin 1.0 AST 35 H ALT 20 Alkaline Phosphatase 54 Total Protein 7.5 Albumin 3.5 Microbiology Microbiology Results: Microbiology 04/07/21 03:44 Blood Culture - Preliminary Blood - Venous No growth after 48 hours. 04/07/21 03:44 Blood Culture - Preliminary Blood - Venous No growth after 48 hours. 04/06/21 07:15 Blood Culture - Preliminary Blood - Venous Prelim: GPC Gram Stain only 04/06/21 07:30 Blood Culture - Preliminary Blood - Venous Prelim: GPC Gram Stain only 04/06/21 Unknown Urine Culture - Final Urine clean catch - Urine li top Klebsiella pneumoniae Assessment and Plan (1) Pneumonia: Status: Acute (2) Cirrhosis of liver with ascites: Status: Acute (3) Type 2 diabetes mellitus: Status: Acute Plan 61yo F long-term care resident of [facility] with bipolar 1, PTSD, cirrhosis with ascites/portal hypertension and hepatic encephalopathy, GERD, hypothyroidism, and DM2 was noted by have dyspnea and altered mental status over the last 3 days.? Today, oxygen saturation was 87% on room air.? EMS was called.? On presentation to the ED, she was septic by virtue of fever to 103 and tachycardia in the 110s.? CTA showed RUL/LLL pneumonia.? Covid-19 MELONIE negative.? Lactate 2.2.? She was given IV ceftriaxone and azithromycin and a liter of IV NS.? She was hyperglycemic to 365 and was given 10 units of IV regular insulin 61yo long-term SNF resident with bipolar 1, PTSD, cirrhosis with ascites/portal hypertension and hepatic encephalopathy, GERD, hypothyroidism, and DM2 sent in with AMS, dyspnea, and hypoxia and found to have severe sepsis from pneumonia. 1.Multifocal pneumonia - ceftriaxone + doxycycline - titrate O2 2.Septic encephalopathy -continues to improve with treatment of #1 3. DM2 -acceptable control - basal/bolus insulin, 4.Cirrhosis with ascites - episode of hypotension responded to Albumin - continue spironolactone, furosemide 5.Hepatic encephalopathy - continue rifaximin, lactulose 6. Bipollar 1/PTSD - continue sertraline, risperidone, trazodone, valproate # VTE ppx - SCDs, LMWH Quality Stroke Does the patient have a stroke diagnosis?: No VTE Prior VTE?: No VTE Risk Level:: Medical - moderate - high VTE Device Contraindication: N/A - Device Ordered VTE Drug Contraindication: N/A - Med Ordered
[2021-04-09 11:31] LABS: Glucose, Whole Blood 398 mg/dL (60-115)
[2021-04-09] MEDS: Enoxaparin Sodium 40 MG/0.4 ML SYRINGE SUBCUT (11:42)
[2021-04-09] MEDS: Insulin Lispro 100 UNIT/ML 3 ML VIAL 15 UNIT SUBCUT (11:43)
[2021-04-09] MEDS: Spironolactone 25 MG TABLET 50 MG PO (13:12)
[2021-04-09 15:59] LABS: Glucose, Whole Blood 406 mg/dL (60-115)
[2021-04-09 17:53] LABS: Glucose, Whole Blood 275 mg/dL (60-115)
--- NOTE | 2021-04-09 18:12 | PC.NURSE ---
Attempted to get pt out of bed with two assist. She is not able to bear any weight at all. MD Mario Sheriff notified.
--- NOTE | 2021-04-09 18:25 | PC.NURSE ---
Pt blood sugar at 11:18 was 398. MD yesi Sheriff notified. 15 Units insulin given per order. Pt was not symptomatic. At 15:44 Pt blood sugar was 406. She was more lethargic than she has been this morning, drowsy and very sleepy. notified. MD Yesi Sheriff gave order to give 15 units of insulin. 15 Units insulin given. Pt blood sugar re checked at 17:49, was 275. She is able to answer yes or no answers and short phrases. She was pocketing her food for dinner so did not eat. Still sleepy but wakes up to her name.
[2021-04-09 20:00] LABS: Glucose, Whole Blood 209 mg/dL (60-115)
[2021-04-09] MEDS: Sertraline HCL 100 MG TABLET PO (20:09)
[2021-04-09] MEDS: traZODone HCL 50 MG TABLET PO (20:09)
[2021-04-10] VITALS (7 sets, daily range): BP systolic 109–135; BP diastolic 53–62; PULSE 88–98; RESP 14–20; TEMP 36.8–38.2; O2SAT 92–95
[2021-04-10] MEDS: Levothyroxine Sodium 112 MCG TABLET PO (05:49)
[2021-04-10] MEDS: 0.9 % Sodium Chloride Flush 3 ML SYRINGE IVFLUSH ×3 (07:26→21:50)
[2021-04-10 07:27] LABS: Glucose, Whole Blood 150 mg/dL (60-115)
[2021-04-10] MEDS: Insulin Lispro 100 UNIT/ML 3 ML VIAL SUBCUT ×4 (07:42→21:31)
[2021-04-10] MEDS: Divalproex Sodium 250 MG TABLET.DR 750 MG PO (07:42)
[2021-04-10] MEDS: Baclofen 10 MG TABLET PO ×2 (07:42→16:37)
[2021-04-10] MEDS: Furosemide 40 MG TABLET PO (07:42)
[2021-04-10] MEDS: risperiDONE 0.5 MG TABLET PO ×2 (07:43→16:37)
[2021-04-10] MEDS: Famotidine 20 MG TABLET PO (07:43)
[2021-04-10] MEDS: Pregabalin 75 MG CAPSULE PO (07:43)
[2021-04-10] MEDS: Magnesium Oxide 400 MG TABLET PO ×2 (07:43→16:37)
[2021-04-10] MEDS: rifAXIMin 550 MG TABLET PO ×3 (07:43→21:31)
[2021-04-10] MEDS: Docusate Sodium 100 MG CAPSULE PO (07:43)
[2021-04-10] MEDS: Atorvastatin Calcium 20 MG TABLET PO (07:43)
[2021-04-10] MEDS: Lactulose 20 GM/30 ML SOLUTION PO (07:44)
[2021-04-10] MEDS: Insulin Glargine,Hum.rec.anlog 100 UNIT/ML 10 ML VIAL 40 UNIT SUBCUT (10:00)
[2021-04-10 11:08] LABS: Glucose, Whole Blood 318 mg/dL (60-115)
[2021-04-10] MEDS: Enoxaparin Sodium 40 MG/0.4 ML SYRINGE SUBCUT (11:18)
[2021-04-10] MEDS: Acetaminophen 325 MG TABLET 650 MG PO (12:40)
--- NOTE | 2021-04-10 13:08 | P.PNIM_ITS ---
Subjective Subjective Date of Service: 04/10/21 Interval History: no acute issues overnight. More alert this am; fever 110.8 Review of Systems Denies CP Denies SOB Denies N/V/D Physical Exam Vital Signs: Vital Signs: Last Vital Signs Temp 100.8 F H 04/10/21 11:28 Pulse 98 04/10/21 11:28 Resp 18 04/10/21 11:28 BP 109/62 04/10/21 11:28 Pulse Ox 95 04/10/21 11:28 BMI result Body Mass Index 27.3 Const: Other: No acute distress Resp: Other: Coarse rhonchi...clear with cough Cardio: Other: -S4 +S1/S2 -S3 MRG GI: Other: soft NT/ND NABS x 4 quads Extrem: Other: no edema bilaat Objective Data Active Medications Acetaminophen (Acetaminophen 325 Mg Tablet) 650 mg PO Q6H PRN PRN Reason: Fever >100.4 Last Admin: 04/10/21 12:40 Dose: 650 mg Documented by: YENIFER Atorvastatin Calcium (Atorvastatin Calcium 20 Mg Tablet) 20 mg PO DAILY [facility]PLAC[facility] BY [facility] Last Admin: 04/10/21 07:43 Dose: 20 mg Documented by: YENIFER Baclofen (Baclofen 10 Mg Tablet) 10 mg PO TID@0900,1300,1700 [facility]PL[facility] BY [facility] Last Admin: 04/10/21 12:52 Dose: Not Given Documented by: YENIFER Non-Admin Reason: Patient Refused Dextrose (Dextrose 50 % 25 Gm/50 Ml Syringe) 25 gm IVPUSH Q15M PRN; Protocol PRN Reason: per Hypoglycemia Standing Ord. Divalproex Sodium (Divalproex Sodium 250 Mg Tablet.) 750 mg PO DAILY [facility] Last Admin: 04/10/21 07:42 Dose: 750 mg Documented by: YENIFER Docusate Sodium (Docusate Sodium 100 Mg Capsule) 100 mg PO DAILY [facility]PL[facility] BY [facility] Last Admin: 04/10/21 07:43 Dose: 100 mg Documented by: YENIFER Enoxaparin Sodium (Enoxaparin Sodium 40 Mg/0.4 Ml Syringe) 40 mg SUBCUT Q24H REPLACED BY [facility] Last Admin: 04/10/21 11:18 Dose: 40 mg Documented by: YENIFER Famotidine (Famotidine 20 Mg Tablet) 20 mg PO DAILY [facility]PL[facility] BY [facility] Last Admin: 04/10/21 07:43 Dose: 20 mg Documented by: YENIFER Furosemide (Furosemide 40 Mg Tablet) 40 mg PO DAILY [facility]PL[facility] BY [facility]; Protocol Last Admin: 04/10/21 07:42 Dose: 40 mg Documented by: YENIFER Glucose (Glucose Gel 15 Gm Gel..Gram.) 15 gm PO Q15M PRN; Protocol PRN Reason: per Hypoglycemia Standing Ord. Levofloxacin (Levaquin) 750 mg in 150 mls @ 100 mls/hr IV Q48H [facility]PL[facility]ED [facility] Last Infusion: 04/08/21 23:02 Dose: 0 mls/hr Documented by: JULY Insulin Glargine (Insulin Glargine,Hum.Rec.Anlog 100 Unit/Ml 10 Ml Vial) 40 unit SUBCUT DAILY [facility] Last Admin: 04/10/21 10:00 Dose: 40 unit Documented by: YENIFER Insulin Human Lispro (Insulin Lispro 100 Unit/Ml 3 Ml Vial) 0 unit SUBCUT QIDACHS REPLACED BY [facility]; Protocol Last Admin: 04/10/21 11:17 Dose: 10 unit Documented by: YENIFER Lactulose (Lactulose 20 Gm/30 Ml Solution) 20 gm PO BID@0900,1700 REPLACED BY [facility] Last Admin: 04/10/21 07:44 Dose: 20 gm Documented by: YENIFER Levothyroxine Sodium (Levothyroxine Sodium 112 Mcg Tablet) 112 mcg PO DAILY@0600 REPLACED BY [facility] Last Admin: 04/10/21 05:49 Dose: 112 mcg Documented by: JULY Magnesium Oxide (Magnesium Oxide 400 Mg Tablet) 400 mg PO BID@0900,1700 REPLACED BY [facility] Last Admin: 04/10/21 07:43 Dose: 400 mg Documented by: YENIFER Ondansetron HCl (Ondansetron Hcl 4 Mg/2 Ml Vial) 4 mg IVPUSH Q8H PRN PRN Reason: Nausea and Vomiting Pharmacy Consult (Consult Rx Perform Med Rec) 1 each MISCELLANE ONCE PRN PRN Reason: Consult order Pregabalin (Pregabalin 75 Mg Capsule) 75 mg PO DAILY [facility] Last Admin: 04/10/21 07:43 Dose: 75 mg Documented by: YENIFER Rifaximin (Rifaximin 550 Mg Tablet) 550 mg PO TID REPLACED BY [facility] Last Admin: 04/10/21 07:43 Dose: 550 mg Documented by: YENIFER Risperidone (Risperidone 0.5 Mg Tablet) 0.5 mg PO TID@0900,1300,1700 REPLACED BY [facility] Last Admin: 04/10/21 12:52 Dose: Not Given Documented by: YENIFER Non-Admin Reason: Patient Refused Sertraline HCl (Sertraline Hcl 100 Mg Tablet) 100 mg PO BEDTIME REPLACED BY [facility] Last Admin: 04/09/21 20:09 Dose: 100 mg Documented by: JULY Sodium Chloride (0.9 % Sodium Chloride Flush 3 Ml Syringe) 3 ml IVFLUSH QSHIFT REPLACED BY [facility] Last Admin: 04/10/21 07:26 Dose: 3 ml Documented by: YENIFER Spironolactone (Spironolactone 25 Mg Tablet) 50 mg PO DAILY@1300 REPLACED BY [facility]; Protocol Last Admin: 04/10/21 12:52 Dose: Not Given Documented by: YENIFER Non-Admin Reason: Patient Refused Trazodone HCl (Trazodone Hcl 50 Mg Tablet) 50 mg PO BEDTIME REPLACED BY [facility] Last Admin: 04/09/21 20:09 Dose: 50 mg Documented by: JULY Labs CBC & Chem 7: 04/09/21 06:02 04/09/21 06:02 Labs: Laboratory Results - last 24 hr 04/09/21 04/09/21 04/09/21 15:44 17:49 19:47 POC Glucose 406 H* 275 H 209 H 04/10/21 04/10/21 07:22 11:03 POC Glucose 150 H 318 H Microbiology Microbiology Results: Microbiology 04/06/21 07:30 Blood Culture - Final Blood - Venous Coag negative Staphylococcus Streptococcus viridans group Streptococcus parasanguinis 04/06/21 07:15 Blood Culture - Final Blood - Venous Staphylococcus epidermidis Streptococcus viridans group Assessment and Plan (1) Pneumonia: Status: Acute (2) Cirrhosis of liver with ascites: Status: Acute (3) Type 2 diabetes mellitus: Status: Acute Plan 61yo F long-term care resident of [facility] with bipolar 1, PTSD, cirrhosis with ascites/portal hypertension and hepatic encephalopathy, GERD, hypothyroidism, and DM2 was noted by have dyspnea and altered mental status over the last 3 days.? Today, oxygen saturation was 87% on room air.? EMS was called.? On presentation to the ED, she was septic by virtue of fever to 103 and tachycardia in the 110s.? CTA showed RUL/LLL pneumonia.? Covid-19 MELONIE negative.? Lactate 2.2.? She was given IV ceftriaxone and azithromycin and a liter of IV NS.? She was hyperglycemic to 365 and was given 10 units of IV regular insulin 61yo long-term SNF resident with bipolar 1, PTSD, cirrhosis with ascites/portal hypertension and hepatic encephalopathy, GERD, hypothyroidism, and DM2 sent in with AMS, dyspnea, and hypoxia and found to have severe sepsis from pneumonia. 1.Multifocal pneumonia...new fever -PCXR/BC x 2 -ceftriaxone + doxycycline - titrate O2 2.Septic encephalopathy -continues to improve with treatment of #1 3. DM2 -acceptable control -basal/bolus insulin, 4.Cirrhosis with ascites - episode of hypotension responded to Albumin - continue spironolactone, furosemide 5.Hepatic encephalopathy - continue rifaximin, lactulose 6. Bipollar 1/PTSD - continue sertraline, risperidone, trazodone, valproate # VTE ppx - SCDs, LMWH Quality Stroke Does the patient have a stroke diagnosis?: No VTE Prior VTE?: No VTE Risk Level:: Medical - moderate - high VTE Device Contraindication: N/A - Device Ordered VTE Drug Contraindication: N/A - Med Ordered
[2021-04-10 13:28] LABS: MANUAL DIFF FLAG NO
[2021-04-10 13:49] LABS: Basophils Percent Auto 0.1 % (0-2); Eosinophils Absolute Auto 0.1 X10*3/uL (0.0-0.4); Eosinophils Percent Auto 1.9 % (0-4); Hematocrit 27.4 % (37.0-47.0); Hemoglobin 8.4 g/dl (12.0-16.0); Imm Gran Abs Auto 0.08 X10*3/uL (0.00-0.03); Imm Gran Pct Auto 1.2 % (0.0-0.4); Lymphocytes Absolute Auto 1.3 X10*3/uL (1.2-4.9); Lymphocytes Percent Auto 18.8 % (20-40); Mean Corpuscular HGB Conc 30.7 g/dl (31.0-35.0); Mean Corpuscular Hemoglobin 31.2 pg (27.0-33.0); Mean Corpuscular Volume 101.9 fL (80.0-98.0); Mean Platelet Volume 11.5 fL (9.4-12.3); Monocytes Absolute Auto 0.6 X10*3/uL (0.1-1.2); Monocytes Percent Auto 8.7 % (2-11); Neutrophils Absolute Auto 4.7 x10*3/uL (2.0-8.3); Neutrophils Percent Auto 69.3 % (45-73); Platelet Count 100 X10*3/uL (160-400); Red Blood Count 2.69 X10*6/uL (4.20-5.50); Red Cell Distribution Width 16.5 % (11.0-16.0); White Blood Count 6.8 X10*3/uL (4.8-10.8)
[2021-04-10 15:56] LABS: Glucose, Whole Blood 407 mg/dL (60-115)
[2021-04-10] MEDS: Insulin Lispro 100 UNIT/ML 3 ML VIAL 10 UNIT SUBCUT (16:35)
--- NOTE | 2021-04-10 18:13 | MHC.PIE ---
1200 P: Pt temp 100.8 Becoming more drowsy. Still able to arouse to name when spoken to. Lungs with rhonchi. audible cngestion heard in throat. I: Pt encouraged to cough and deep breathe. Dr Sheriff notified as no tylenol ordered. Tylenol ordered and given with good effect, temp 99.4. Blood cultures drawn along with CBC. PCXR done. E: 1600: Pt less congested sounding, more alert and able to clear throat. will continue to monitor
[2021-04-10 20:09] LABS: Glucose, Whole Blood 390 mg/dL (60-115)
[2021-04-10] MEDS: levoFLOXacin/D5W 750 MG/150 ML PIGGYBACK 100 MG IV (21:30)
[2021-04-10] MEDS: Sertraline HCL 100 MG TABLET PO (21:31)
[2021-04-10] MEDS: traZODone HCL 50 MG TABLET PO (21:31)
[2021-04-11] VITALS: BP 122/59; PULSE 87; RESP 16; TEMP 37.4; O2SAT 97
[2021-04-11 03:38] VITALS: BP 134/76; PULSE 72; RESP 16; TEMP 37.5; O2SAT 95
[2021-04-11 05:41] LABS: MANUAL DIFF FLAG NO
[2021-04-11 05:47] LABS: Basophils Percent Auto 0.4 % (0-2); Eosinophils Absolute Auto 0.2 X10*3/uL (0.0-0.4); Eosinophils Percent Auto 3.3 % (0-4); Hemoglobin 8.1 g/dl (12.0-16.0); Imm Gran Abs Auto 0.08 X10*3/uL (0.00-0.03); Imm Gran Pct Auto 1.5 % (0.0-0.4); Lymphocytes Absolute Auto 1.5 X10*3/uL (1.2-4.9); Lymphocytes Percent Auto 28.1 % (20-40); Mean Corpuscular HGB Conc 31.2 g/dl (31.0-35.0); Mean Corpuscular Hemoglobin 31.3 pg (27.0-33.0); Mean Corpuscular Volume 100.4 fL (80.0-98.0); Monocytes Absolute Auto 0.6 X10*3/uL (0.1-1.2); Monocytes Percent Auto 10.6 % (2-11); Neutrophils Absolute Auto 2.9 x10*3/uL (2.0-8.3); Neutrophils Percent Auto 56.1 % (45-73); Red Blood Count 2.59 X10*6/uL (4.20-5.50); Red Cell Distribution Width 16.2 % (11.0-16.0); White Blood Count 5.2 X10*3/uL (4.8-10.8)
[2021-04-11 05:55] LABS: INTERNATIONAL NORM RATIO 1.6 (0.9-1.1)
[2021-04-11 05:58] LABS: Platelet Count 91 X10*3/uL (160-400)
[2021-04-11] MEDS: Levothyroxine Sodium 112 MCG TABLET PO (05:59)
[2021-04-11 06:07] LABS: Alanine Aminotransferase 21 U/L (0-31); Albumin Level 3.2 g/dL (3.5-5.0); Alkaline Phosphatase 68 U/L (39-117); Anion Gap 12 (12-20); Aspartate Amino Transferase 31 U/L (5-31); Bilirubin Total 0.8 mg/dL (0.0-1.0); Blood Urea Nitrogen 15 mg/dL (9-16); Calcium 8.9 mg/dL (8.4-10.2); Carbon Dioxide 29 mmol/L (22-29); Chloride 102 mmol/L (96-108); Creatinine Clr Calc Pharmacy 56.1; Estimated Glomerular Filt Rate 56; Glucose Fasting 254 mg/dL (60-99); Sodium 139 mmol/L (135-145); Total Protein 7.4 g/dL (6.5-8.0)
[2021-04-11 07:28] VITALS: BP 114/57; PULSE 84; RESP 18; TEMP 36.8; O2SAT 93
[2021-04-11 07:36] LABS: Glucose, Whole Blood 225 mg/dL (60-115)
[2021-04-11] MEDS: rifAXIMin 550 MG TABLET PO ×2 (07:57→15:34)
[2021-04-11] MEDS: Famotidine 20 MG TABLET PO (07:58)
[2021-04-11] MEDS: Divalproex Sodium 250 MG TABLET.DR 750 MG PO (07:58)
[2021-04-11] MEDS: Magnesium Oxide 400 MG TABLET PO (07:58)
[2021-04-11] MEDS: Furosemide 40 MG TABLET PO (07:58)
[2021-04-11] MEDS: Atorvastatin Calcium 20 MG TABLET PO (07:59)
[2021-04-11] MEDS: Docusate Sodium 100 MG CAPSULE PO (07:59)
[2021-04-11] MEDS: Lactulose 20 GM/30 ML SOLUTION PO (07:59)
[2021-04-11] MEDS: risperiDONE 0.5 MG TABLET PO ×2 (08:00→13:00)
[2021-04-11] MEDS: Baclofen 10 MG TABLET PO ×2 (08:00→12:59)
[2021-04-11] MEDS: Pregabalin 75 MG CAPSULE PO (08:00)
[2021-04-11] MEDS: Insulin Glargine,Hum.rec.anlog 100 UNIT/ML 10 ML VIAL 40 UNIT SUBCUT (08:04)
[2021-04-11] MEDS: Insulin Lispro 100 UNIT/ML 3 ML VIAL SUBCUT ×2 (08:04→11:59)
[2021-04-11] MEDS: 0.9 % Sodium Chloride Flush 3 ML SYRINGE IVFLUSH (08:09)
[2021-04-11 11:01] VITALS: BP 105/54; PULSE 87; RESP 18; TEMP 36.9; O2SAT 93
[2021-04-11 11:08] LABS: Glucose, Whole Blood 154 mg/dL (60-115)
--- NOTE | 2021-04-11 11:33 | MHC.CM.PN ---
PT MEDICALLY CLEARED FOR D/C BACK TO [facility], CM CONTACTED PT'S SISTER/HCP YOGESH AT 11:32AM AND IS AGREEABLE TO PLAN, ACTION FOR [facility] TRANSPORT
--- NOTE | 2021-04-11 11:41 | P.DS_ITS ---
DS: Providers Provider Date of Service: 04/11/21 Date of admission: 04/06/21 10:41 Date of discharge: 04/11/21 Primary care physician: Roselyn Weaver MD DS: Diagnosis Discharge Diagnosis (1) Pneumonia: Status: Acute (2) Cirrhosis of liver with ascites: Status: Acute (3) Type 2 diabetes mellitus: Status: Acute DS: Summary Hospital Course Hospital Course: 61yo F long-term care resident of [facility] with bipolar 1, PTSD, cirrhosis with ascites/portal hypertension and hepatic encephalopathy, GERD, hypothyroidism, and DM2 was noted by have dyspnea and altered mental status over the last 3 days.? Today, oxygen saturation was 87% on room air.? EMS was called.? On presentation to the ED, she was septic by virtue of fever to 103 and tachycardia in the 110s.? CTA showed RUL/LLL pneumonia.? Covid-19 MELONIE negative.? Lactate 2.2.? She was given IV ceftriaxone and azithromycin and a liter of IV NS.? She was hyperglycemic to 365 and was given 10 units of IV regular insulin. Hospital Course Continiued on IV antiobiotic over the next 72 hrs improvement in status. Seen by speech who recommend ground diet/nectar thick liquids. Will need re eval by speech at receiving facility as well as repeat CXR 6 weeks to document clearence Time Spent with Patient Time attestation: Total time spent providing and/or coordinating discharge services: Discharge coordination time: Greater than 30 minutes Quality: Stroke Does the patient have a stroke diagnosis?: No Physical Exam Vital Signs: Vital Signs: Last Vital Signs Temp 98.4 F 04/11/21 11:01 Pulse 87 04/11/21 11:01 Resp 18 04/11/21 11:01 BP 105/54 L 04/11/21 11:01 Pulse Ox 93 04/11/21 11:01 BMI result Body Mass Index 27.3 Const: Other: No acute distress Resp: Other: Coarse rhonchi...clear with cough Cardio: Other: -S4 +S1/S2 -S3 MRG GI: Other: soft NT/ND NABS x 4 quads Extrem: Other: no edema bilaat DS: Data Data Completed and Pending Labs on day of discharge: Laboratory Results - last 24 hr 04/10/21 04/10/21 04/10/21 13:13 15:50 19:38 WBC 6.8 RBC 2.69 L Hgb 8.4 L Hct 27.4 L MCV 101.9 H MCH 31.2 MCHC 30.7 L RDW 16.5 H Plt Count 100 L MPV 11.5 Immature Gran % (Auto) 1.2 H Neut % (Auto) 69.3 Lymph % (Auto) 18.8 L [place] % (Auto) 8.7 Eos % (Auto) 1.9 Baso % (Auto) 0.1 Lymph # (Auto) 1.3 [place] # (Auto) 0.6 Eos # (Auto) 0.1 Baso # (Auto) 0.0 Abs Immat Gran (auto) 0.08 H Absolute Neuts (auto) 4.7 Absolute Nucleated RBC 0.000 Nucleated RBC % (auto) 0.0 PT INR Sodium Potassium Chloride Carbon Dioxide Anion Gap BUN Creatinine Estim Creat Clear Calc Estimated GFR POC Glucose 407 H* 390 H* Fasting Glucose Calcium Total Bilirubin AST ALT Alkaline Phosphatase Total Protein Albumin 04/11/21 04/11/21 04/11/21 05:31 05:31 05:31 WBC 5.2 RBC 2.59 L Hgb 8.1 L Hct 26.0 L MCV 100.4 H MCH 31.3 MCHC 31.2 RDW 16.2 H Plt Count 91 L MPV 11.0 Immature Gran % (Auto) 1.5 H Neut % (Auto) 56.1 Lymph % (Auto) 28.1 [place] % (Auto) 10.6 Eos % (Auto) 3.3 Baso % (Auto) 0.4 Lymph # (Auto) 1.5 [place] # (Auto) 0.6 Eos # (Auto) 0.2 Baso # (Auto) 0.0 Abs Immat Gran (auto) 0.08 H Absolute Neuts (auto) 2.9 Absolute Nucleated RBC 0.000 Nucleated RBC % (auto) 0.0 PT 18.0 H INR 1.6 H Sodium 139 Potassium 4.0 Chloride 102 Carbon Dioxide 29 Anion Gap 12 BUN 15 Creatinine 1.00 Estim Creat Clear Calc 56.1 Estimated GFR 56 POC Glucose Fasting Glucose 254 H Calcium 8.9 D Total Bilirubin 0.8 AST 31 ALT 21 Alkaline Phosphatase 68 D Total Protein 7.4 Albumin 3.2 L 04/11/21 04/11/21 07:31 10:59 WBC RBC Hgb Hct MCV MCH MCHC RDW Plt Count MPV Immature Gran % (Auto) Neut % (Auto) Lymph % (Auto) [place] % (Auto) Eos % (Auto) Baso % (Auto) Lymph # (Auto) [place] # (Auto) Eos # (Auto) Baso # (Auto) Abs Immat Gran (auto) Absolute Neuts (auto) Absolute Nucleated RBC Nucleated RBC % (auto) PT INR Sodium Potassium Chloride Carbon Dioxide Anion Gap BUN Creatinine Estim Creat Clear Calc Estimated GFR POC Glucose 225 H 154 H Fasting Glucose Calcium Total Bilirubin AST ALT Alkaline Phosphatase Total Protein Albumin Preliminary micro results at discharge 04/07/21 03:44 Blood Culture - Preliminary Blood - Venous No growth after 48 hours. 04/07/21 03:44 Blood Culture - Preliminary Blood - Venous No growth after 48 hours. Discharge Plan Discharge Patient Disposition: Xfer Inpatient Rehab Fac Discharge Diagnosis: multilobar pneumonia Referrals: Roselyn Weaver MD [Primary Care Provider] - 1 Week Discharge Medications: New levofloxacin 500 mg tablet 500 mg PO DAILY Qty: 7 0RF Continued atorvastatin 20 mg Tablet 20 mg PO DAILY 0RF divalproex 250 mg Tablet,Delayed Release (Dr/Ec) 750 mg PO DAILY 0RF famotidine 20 mg Tablet 20 mg PO DAILY 0RF levothyroxine 112 mcg Tablet 112 mcg PO DAILY@0600 0RF insulin lispro 100 unit/mL Insulin Pen 1 sliding scale dose SUBCUT USEASDIRECTD 0RF lactulose [Enulose] 10 gram/15 mL Solution 20 g PO BID@0900,1700 0RF pregabalin 75 mg Capsule 75 mg PO DAILY 0RF insulin detemir U-100 100 unit/mL Solution 80 unit SUBCUT DAILY 0RF insulin detemir U-100 100 unit/mL Solution 65 unit SUBCUT DAILY@1700 0RF baclofen 10 mg tablet 10 mg PO TID@0900,1300,1700 0RF docusate sodium 100 mg capsule 100 mg PO DAILY 0RF furosemide 40 mg tablet 40 mg PO DAILY 0RF magnesium oxide 400 mg magnesium capsule 400 mg PO BID@0900,1700 0RF trazodone 50 mg tablet 50 mg PO BEDTIME 0RF Xifaxan 550 mg tablet 550 mg PO TID 0RF sertraline 100 mg tablet 100 mg PO BEDTIME 0RF spironolactone 50 mg tablet 50 mg PO DAILY@1300 0RF risperidone [Risperdal] 0.5 mg tablet 0.5 mg PO TID@0900,1300,1700 0RF Discharge Orders: Discharge Order (Routine); Ordered 04/11/21 Ordered By: Mario Sheriff Diet: other Activity on Discharge: As tolerated Stand Alone Forms: Patient Portal Discharge page Care Plan Goals: Complete 7 day course [facility] Concerns: Follow up chest xray 6 weeks Plan of Treatment: as per receiving facility Assessment: see D/C summary
[2021-04-11 12:57] VITALS: BP 100/55; PULSE 86; RESP 16; O2SAT 92
[2021-04-11] MEDS: Spironolactone 25 MG TABLET 50 MG PO (12:59)
[2021-04-11 13:14] LABS: COVID-19 Test Invalid (Negative); IDNOW Serial# 08D9AD1C
--- NOTE | 2021-04-11 13:56 | MHC.SL.SWA ---
Speech Pathologist Impression: Risk of Aspiration Oralpharyngeal Dysphagia Risk of Aspiration Due to: History of Pneumonia Dysphasia Diet Status: Downgrade Liquid Consistency and Strategies for Safe Swallow: Liquid Intake Recommendation: [place] Thick Liquid Intake Strategies: Small Sips No Straws Solid Food Consistency: Dietary Recommendations: Pureed (NDD1) Additional Modifications to Solid Foods: Recommend DOWNGRADE solids to PUREED (NDD1) and maintain NECTAR THICK liquids, pills to be CRUSHED in PUREE. Patient requires TOTAL 1:1 ASSISTANCE FEEDING- Recommend oral cavity check, alternate bite of food with liquid wash as needed to clear any residue, no straws. Aspiration precautions apply. Diet order updated in [employer] by MANAGER TITLE. Updated RN, MD, RD via [employer] Message. Oral Medication Intake: Crushed with Puree Compensatory Strategies and Precautions to be Taken for Safe Swallow: Sitting Upright (90 deg) No Straw Small Bites and Sips Alternate Liquids/Solids Rate of Ingestion Change Oral Check Supervision While Eating and Drinking for Safe Swallow: Total Assistance Swallowing Recommended Treatments: Compens. Strategy Educat. Recommendation for Speech: Inpatient Speech Therapy Body Make Up Artist Clinican/Clinical Fellow: No Supervisory Statement: I have reviewed and agree with the student/clinical fellow's documentation: N/A Speech Language Pathologist: Margaret Doty M.A., CCC-MANAGER TITLE
[2021-04-11 14:16] LABS: COVID-19 Test Negative (Negative)
[2021-04-11 14:58] VITALS: BMI 27.3
--- NOTE | 2021-04-11 15:05 | MHC.CLN ---
NUTRITION CONSULT FOR SKIN, STAGE I PRESSURE INJURY TO LEFT HIP. APPEARS TO BE EATING WELL. NO ADDITIONAL NUTRITION INTERVENTIONS AT THIS TIME.
== END 2021-04-11 16:09 | DRG 871 ==
LOC: HO.ED 10:26 → HO.EDOVER 10:45 → HO.S3 13:34
PROVIDERS: Admitting Provider Family Medicine; Emergency Provider Emergency Medicine; PCP Internal Medicine; Visit Provider Hospitalist
DX: A41.9 Sepsis, unspecified organism (principal); J18.9 Pneumonia, unspecified organism; G93.41 Metabolic encephalopathy; J96.01 Acute respiratory failure with hypoxia; R18.8 Other ascites; K76.6 Portal hypertension; E11.65 Type 2 diabetes mellitus with hyperglycemia; F31.9 Bipolar disorder, unspecified; E78.5 Hyperlipidemia, unspecified; K74.60 Unspecified cirrhosis of liver; K72.90 Hepatic failure, unspecified without coma; G89.29 Other chronic pain; F43.10 Post-traumatic stress disorder, unspecified; K21.9 Gastro-esophageal reflux disease without esophagitis; R65.20 Severe sepsis without septic shock; L27.0 Generalized skin eruption due to drugs and medicaments taken internally; T36.95XA Adverse effect of unspecified systemic antibiotic, initial encounter; Y92.239 Unspecified place in hospital as the place of occurrence of the external cause; Z20.822 Contact with and (suspected) exposure to COVID-19; Z88.5 Allergy status to narcotic agent; Z79.4 Long term (current) use of insulin; Z79.890 Hormone replacement therapy; Z79.899 Other long term (current) drug therapy
CPT/HCPCS: 36415; 71045; 71275; 80048; 80053; 80076; 81001; 82607; 82746; 82803; 82947; 83036; 83605; 83880; 84145; 84484; 85007; 85025; 85027; 85379; 85610; 86140; 87040; 87077; 87086; 87088; 87186; 87205; 87635; 92526; 92610; 93005; 96361; 96365; 96375; 99285; 99291; J0456; J0696; J1200; J1650; J1956; P9047; Q9967

== ENCOUNTER 2022-03-20 12:21 | Emergency (ER) | payer MEDICARE, MEDICAID, SELFPAY ==
--- NOTE | ~2022-03-20 | XR_ITS ---
EXAMINATION: XR CHEST CLINICAL INFORMATION: Pneumonia COMPARISON: Chest radiograph 04/10/2021 TECHNIQUE: Frontal view of the chest was obtained. FINDINGS: Lung volumes are diminished resulting in crowding of bronchovascular structures and the patient is slightly rotated. No focal airspace opacities are seen. The cardiomediastinal contours when accounting for differences in positioning are similar to the prior study. There are old right-sided rib fractures. There is partially visualized spinal fusion hardware. There is no pleural effusion. XR/XR chest 1V IMPRESSION: Chronic changes of the lungs without superimposed acute process.
[2022-03-20 12:37] VITALS: BP 111/72; PULSE 80; O2SAT 98
[2022-03-20 12:40] VITALS: BP 110/50; PULSE 84; RESP 20; O2SAT 94
--- NOTE | 2022-03-20 13:03 | ECG_ITS ---
Test Reason : AMS Blood Pressure : / mmHG Vent. Rate : 078 BPM Atrial Rate : 078 BPM P-R Int : 160 ms QRS Dur : 100 ms QT Int : 392 ms P-R-T Axes : 055 003 077 degrees QTc Int : 446 ms Normal sinus rhythm Nonspecific T wave abnormality Abnormal ECG When compared with ECG of 06-APR-2021 07:36, No significant change was found Referred By: Suzy Qiu Electronically Signed By:DINO MARCELO
--- NOTE | 2022-03-20 13:04 | ED.GENADULT ---
HPI - General Adult General Chief complaint: General Medical Stated complaint: Lethargic x 5hrs, fever(99.4) per EMS Time Seen by Provider: 03/20/22 12:55 Source: EMS Mode of arrival: EMS Limitations: language barrier History of Present Illness HPI narrative: Patient comes to the emergency room via EMS from [facility]. According to the EMS staff, they report that they received a 911 called from the facility, reporting that the patient had low blood pressure in the low 80s, and more lethargic than usual. EMS reports that the patient is at baseline. However there was discrepancy in the nursing report, some say that the patient is lethargic and other nurses stated that the patient is at baseline. Patient has history of CVAs, has tried neurological deficits chronically. When EMS arrived, patient's blood pressure within normal limits along with the other vitals. Patient voices no concerns. However, patient is a poor historian Related Data Home Medications Medication Instructions Recorded Confirmed baclofen 10 mg tablet 10 mg PO TID@0900,1300,1700 09/27/20 04/06/21 docusate sodium 100 mg capsule 100 mg PO DAILY 09/27/20 04/06/21 furosemide 40 mg tablet 40 mg PO DAILY 09/27/20 04/06/21 magnesium oxide 400 mg PO BID@0900,1700 09/27/20 04/06/21 rifaximin 550 mg tablet (Xifaxan) 550 mg PO TID 02/07/21 04/06/21 risperidone 0.5 mg tablet 0.5 mg PO TID@0900,1300,1700 02/07/21 04/06/21 (Risperdal) sertraline 100 mg tablet 100 mg PO BEDTIME 02/07/21 04/06/21 spironolactone 50 mg tablet 50 mg PO DAILY@1300 02/07/21 04/06/21 trazodone 50 mg tablet 50 mg PO BEDTIME 02/07/21 04/06/21 atorvastatin 20 mg tablet 20 mg PO DAILY 04/06/21 04/06/21 divalproex 250 mg tablet,delayed 750 mg PO DAILY 04/06/21 04/06/21 release famotidine 20 mg tablet 20 mg PO DAILY 04/06/21 04/06/21 insulin detemir U-100 100 unit/mL 65 unit subcut DAILY@1700 04/06/21 04/06/21 subcutaneous solution insulin detemir U-100 100 unit/mL 80 unit subcut DAILY 04/06/21 04/06/21 subcutaneous solution insulin lispro 100 unit/mL 1 sliding scale dose subcut 04/06/21 04/06/21 subcutaneous pen USEASDIRECTD lactulose 10 gram/15 mL oral 20 g PO BID@0900,1700 04/06/21 04/06/21 solution (Enulose) levothyroxine 112 mcg tablet 112 mcg PO DAILY@0600 04/06/21 04/06/21 pregabalin 75 mg capsule 75 mg PO DAILY 04/06/21 04/06/21 Previous Rx's Medication Instructions Recorded levofloxacin 500 mg tablet 500 mg PO DAILY #7 tabs 04/11/21 lactulose 10 gram/15 mL (15 mL) 10 g (15 mL) PO DAILY PRN laxative 03/20/22 oral solution effect #750 mL Allergies Allergy/AdvReac Type Severity Reaction Status Date / Time acetaminophen [From Percocet] Allergy Unknown Unknown Verified 02/07/21 08:48 oxycodone [From Percocet] Allergy Unknown Unknown Verified 02/07/21 08:48 Review of Systems Review of Systems: Yes Unobtainable due to mental condition PMFSH Past Medical History Medical History Acute and subacute hepatic failure without coma Acute kidney failure Bipolar disorder Brain injury Cirrhosis of liver Contracture, right hand Hammer toe Nail dystrophy Other seizures Presbyopia Tinea manuum, pedis, and unguium Type 2 diabetes mellitus Surgical History History of lumpectomy Previous back surgery Social History Social History Household Members: Other Household Members Other:: group home Housing: Retirement Do you presently have visiting nurse or other home services: No Unable to assess alcohol history related to: Unknown Alcohol intake: never Patient Tobacco Use Status: Tobacco use Unknown Smoked in Last 30 Days: No Use of substances other than those prescribed or required for medical reasons: No Any prior treatment program specific to substance use: No Advance Directives: Yes Advance Directives on File: No Advance Directives Date on File: 04/06/21 Patient : No service: No Current occupational status: disabled Physical Exam ED Vital Signs: Vital Signs - 24 hr 03/20/22 12:40 03/20/22 13:19 Pulse Rate 84 72 Respiratory Rate 20 15 Blood Pressure 110/50 L 103/52 L Pulse Oximetry 94 93 Oxygen Delivery Method Room Air BMI result Body Mass Index 30.0 Const Other: Appearance: Alert. Oriented X 1 at baseline, No acute distress. Eyes: Pupils equal, round and reactive to light. ENT: Pharynx normal. Neck: Normal inspection. Neck supple. No lymph nodes noted. No crepitus CVS: Normal heart rate and rhythm. Pulses normal. Normal S1 and S2 Respiratory: No respiratory distress. Breath sounds normal. No Wheezing. No rales Abdomen: Soft and nontender. No rigidity. No distention. Skin: Skin warm and dry. Normal skin color. Normal skin turgor. Extremities: No lower extremity edema. No Lacerations. No Rash Neuro: Oriented X 1. Unable to participating cranial nerve assessment Psych: calm, cooperative Course Course Course Narrative: -Patient's initial vitals are within normal limits. Patient unable to give any significant history. Patient states that she has no pain and she has no idea why they sent her to the emergency room. -all of patient's labs and imaging pending Medications Administered Discontinued Medications Generic Name Dose Route Start Last Admin Trade Name Freq PRN Reason Stop Dose Admin Sodium Chloride 1,000 mls @ 999 mls/hr 03/20/22 13:03 03/20/22 18:40 Ns IVCONT 03/20/22 14:03 Infused .Q1H1M ONE Infusion Sodium Chloride 1,000 mls @ 999 mls/hr 03/20/22 15:39 03/20/22 18:41 Ns IVCONT 03/20/22 16:39 Infused .Q1H1M ONE Infusion Medical Decision Making Medical Decision Making MDM Narrative: -patient's urinalysis within normal limits. -patient's lactic acid decreased from 3.6-1.7, likely secondary to dehydration, sepsis not suspected. There have been no episodes of hypotension in the emergency room. Patient remains awake, easily arousable. -ammonia is slightly bumped, 77. We do not have previous ammonia for comparison. It is not significantly elevated, we will give the patient a prescription for lactulose -chest x-ray shows chronic changes on EKG, no acute changes Lab Data 03/20/22 13:54 03/20/22 13:54 Labs: Lab Results 03/20/22 03/20/22 03/20/22 Range/Units 13:54 13:54 13:54 WBC 6.5 (4.8-10.8) X10*3/uL RBC 2.82 L (4.20-5.50) X10*6/uL Hgb 8.6 L (12.0-16.0) g/dl Hct 27.2 L (37.0-47.0) % MCV 96.5 (80.0-98.0) fL MCH 30.5 (27.0-33.0) pg MCHC 31.6 (31.0-35.0) g/dl RDW 16.8 H (11.0-16.0) % Plt Count 143 L D (160-400) X10*3/uL MPV 11.6 (9.4-12.3) fL Immature Gran % (Auto) 0.8 H (0.0-0.4) % Neut % (Auto) 62.6 (45-73) % Lymph % (Auto) 21.6 (20-40) % [place] % (Auto) 11.3 H (2-11) % Eos % (Auto) 3.2 (0-4) % Baso % (Auto) 0.5 (0-2) % Lymph # (Auto) 1.4 (1.2-4.9) X10*3/uL [place] # (Auto) 0.7 (0.1-1.2) X10*3/uL Eos # (Auto) 0.2 (0.0-0.4) X10*3/uL Baso # (Auto) 0.0 (0.0-0.2) X10*3/uL Abs Immat Gran (auto) 0.05 H (0.00-0.03) X10*3/uL Absolute Neuts (auto) 4.1 (2.0-8.3) x10*3/uL Absolute Nucleated RBC 0.000 (0.0-0.012) X10*3/uL Nucleated RBC % (auto) 0.0 (0.0-0.2) /100WBC PT 14.1 H (10.0-13.1) SEC INR 1.2 H (0.9-1.1) Sodium 139 (135-145) mmol/L Potassium 4.0 (3.3-5.1) mmol/L Chloride 108 (96-108) mmol/L Carbon Dioxide 18 L (22-29) mmol/L Anion Gap 17 (12-20) BUN 33 H (9-16) mg/dL Creatinine 1.30 (0.5-1.4) mg/dL Estim Creat Clear Calc 44.5 Estimated GFR 41 Random Glucose 260 H (60-115) mg/dL Lactic Acid (0.5-2.0) mmol/L Lactic Acid F/U @ 2Hr (0.5-2.0) mmol/L Calcium 9.2 (8.4-10.2) mg/dL Magnesium 1.8 (1.6-2.6) mg/dL Total Bilirubin 0.7 (0.0-1.0) mg/dL Direct Bilirubin 0.4 (0.0-0.5) mg/dL AST 30 (5-31) U/L ALT 28 (0-31) U/L Alkaline Phosphatase 153 H (39-117) U/L Ammonia (13-55) umol/L Troponin I High Sens (<3.5-17.0) ng/L B-Natriuretic Peptide (<100) pg/mL Total Protein 8.7 H (6.5-8.0) g/dL Albumin 3.3 L (3.5-5.0) g/dL TSH 0.84 (0.32-4.0) uIU/mL Urine Color Urine Appearance Urine pH (5.0-9.0) Ur Specific [place] (1.005-1.025) Urine Protein (Neg-Trace) mg/dL Urine Glucose (UA) (Negative) mg/dL Urine Ketones (Negative) mg/dL Urine Blood (Negative) Urine Nitrite (Negative) Ur Leukocyte Esterase (Negative) COVID-19 (MELONIE) (Negative) COVID-19 Clin Com 03/20/22 03/20/22 03/20/22 Range/Units 13:54 13:54 14:04 WBC (4.8-10.8) X10*3/uL RBC (4.20-5.50) X10*6/uL Hgb (12.0-16.0) g/dl Hct (37.0-47.0) % MCV (80.0-98.0) fL MCH (27.0-33.0) pg MCHC (31.0-35.0) g/dl RDW (11.0-16.0) % Plt Count (160-400) X10*3/uL MPV (9.4-12.3) fL Immature Gran % (Auto) (0.0-0.4) % Neut % (Auto) (45-73) % Lymph % (Auto) (20-40) % [place] % (Auto) (2-11) % Eos % (Auto) (0-4) % Baso % (Auto) (0-2) % Lymph # (Auto) (1.2-4.9) X10*3/uL [place] # (Auto) (0.1-1.2) X10*3/uL Eos # (Auto) (0.0-0.4) X10*3/uL Baso # (Auto) (0.0-0.2) X10*3/uL Abs Immat Gran (auto) (0.00-0.03) X10*3/uL Absolute Neuts (auto) (2.0-8.3) x10*3/uL Absolute Nucleated RBC (0.0-0.012) X10*3/uL Nucleated RBC % (auto) (0.0-0.2) /100WBC PT (10.0-13.1) SEC INR (0.9-1.1) Sodium (135-145) mmol/L Potassium (3.3-5.1) mmol/L Chloride (96-108) mmol/L Carbon Dioxide (22-29) mmol/L Anion Gap (12-20) BUN (9-16) mg/dL Creatinine (0.5-1.4) mg/dL Estim Creat Clear Calc Estimated GFR Random Glucose (60-115) mg/dL Lactic Acid (0.5-2.0) mmol/L Lactic Acid F/U @ 2Hr (0.5-2.0) mmol/L Calcium (8.4-10.2) mg/dL Magnesium (1.6-2.6) mg/dL Total Bilirubin (0.0-1.0) mg/dL Direct Bilirubin (0.0-0.5) mg/dL AST (5-31) U/L ALT (0-31) U/L Alkaline Phosphatase (39-117) U/L Ammonia (13-55) umol/L Troponin I High Sens < 3.5 (<3.5-17.0) ng/L B-Natriuretic Peptide 43 (<100) pg/mL Total Protein (6.5-8.0) g/dL Albumin (3.5-5.0) g/dL TSH (0.32-4.0) uIU/mL Urine Color Urine Appearance Urine pH (5.0-9.0) Ur Specific [place] (1.005-1.025) Urine Protein (Neg-Trace) mg/dL Urine Glucose (UA) (Negative) mg/dL Urine Ketones (Negative) mg/dL Urine Blood (Negative) Urine Nitrite (Negative) Ur Leukocyte Esterase (Negative) COVID-19 (MELONIE) Negative (Negative) COVID-19 Clin Com See Note 03/20/22 03/20/22 03/20/22 Range/Units 14:19 14:19 16:14 WBC (4.8-10.8) X10*3/uL RBC (4.20-5.50) X10*6/uL Hgb (12.0-16.0) g/dl Hct (37.0-47.0) % MCV (80.0-98.0) fL MCH (27.0-33.0) pg MCHC (31.0-35.0) g/dl RDW (11.0-16.0) % Plt Count (160-400) X10*3/uL MPV (9.4-12.3) fL Immature Gran % (Auto) (0.0-0.4) % Neut % (Auto) (45-73) % Lymph % (Auto) (20-40) % [place] % (Auto) (2-11) % Eos % (Auto) (0-4) % Baso % (Auto) (0-2) % Lymph # (Auto) (1.2-4.9) X10*3/uL [place] # (Auto) (0.1-1.2) X10*3/uL Eos # (Auto) (0.0-0.4) X10*3/uL Baso # (Auto) (0.0-0.2) X10*3/uL Abs Immat Gran (auto) (0.00-0.03) X10*3/uL Absolute Neuts (auto) (2.0-8.3) x10*3/uL Absolute Nucleated RBC (0.0-0.012) X10*3/uL Nucleated RBC % (auto) (0.0-0.2) /100WBC PT (10.0-13.1) SEC INR (0.9-1.1) Sodium (135-145) mmol/L Potassium (3.3-5.1) mmol/L Chloride (96-108) mmol/L Carbon Dioxide (22-29) mmol/L Anion Gap (12-20) BUN (9-16) mg/dL Creatinine (0.5-1.4) mg/dL Estim Creat Clear Calc Estimated GFR Random Glucose (60-115) mg/dL Lactic Acid 3.6 H* 3.2 H* (0.5-2.0) mmol/L Lactic Acid F/U @ 2Hr (0.5-2.0) mmol/L Calcium (8.4-10.2) mg/dL Magnesium (1.6-2.6) mg/dL Total Bilirubin (0.0-1.0) mg/dL Direct Bilirubin (0.0-0.5) mg/dL AST (5-31) U/L ALT (0-31) U/L Alkaline Phosphatase (39-117) U/L Ammonia 77 H (13-55) umol/L Troponin I High Sens (<3.5-17.0) ng/L B-Natriuretic Peptide (<100) pg/mL Total Protein (6.5-8.0) g/dL Albumin (3.5-5.0) g/dL TSH (0.32-4.0) uIU/mL Urine Color Urine Appearance Urine pH (5.0-9.0) Ur Specific [place] (1.005-1.025) Urine Protein (Neg-Trace) mg/dL Urine Glucose (UA) (Negative) mg/dL Urine Ketones (Negative) mg/dL Urine Blood (Negative) Urine Nitrite (Negative) Ur Leukocyte Esterase (Negative) COVID-19 (MELONIE) (Negative) COVID-19 Clin Com 03/20/22 03/20/22 Range/Units 17:02 17:02 WBC (4.8-10.8) X10*3/uL RBC (4.20-5.50) X10*6/uL Hgb (12.0-16.0) g/dl Hct (37.0-47.0) % MCV (80.0-98.0) fL MCH (27.0-33.0) pg MCHC (31.0-35.0) g/dl RDW (11.0-16.0) % Plt Count (160-400) X10*3/uL MPV (9.4-12.3) fL Immature Gran % (Auto) (0.0-0.4) % Neut % (Auto) (45-73) % Lymph % (Auto) (20-40) % [place] % (Auto) (2-11) % Eos % (Auto) (0-4) % Baso % (Auto) (0-2) % Lymph # (Auto) (1.2-4.9) X10*3/uL [place] # (Auto) (0.1-1.2) X10*3/uL Eos # (Auto) (0.0-0.4) X10*3/uL Baso # (Auto) (0.0-0.2) X10*3/uL Abs Immat Gran (auto) (0.00-0.03) X10*3/uL Absolute Neuts (auto) (2.0-8.3) x10*3/uL Absolute Nucleated RBC (0.0-0.012) X10*3/uL Nucleated RBC % (auto) (0.0-0.2) /100WBC PT (10.0-13.1) SEC INR (0.9-1.1) Sodium (135-145) mmol/L Potassium (3.3-5.1) mmol/L Chloride (96-108) mmol/L Carbon Dioxide (22-29) mmol/L Anion Gap (12-20) BUN (9-16) mg/dL Creatinine (0.5-1.4) mg/dL Estim Creat Clear Calc Estimated GFR Random Glucose (60-115) mg/dL Lactic Acid (0.5-2.0) mmol/L Lactic Acid F/U @ 2Hr 1.7 (0.5-2.0) mmol/L Calcium (8.4-10.2) mg/dL Magnesium (1.6-2.6) mg/dL Total Bilirubin (0.0-1.0) mg/dL Direct Bilirubin (0.0-0.5) mg/dL AST (5-31) U/L ALT (0-31) U/L Alkaline Phosphatase (39-117) U/L Ammonia (13-55) umol/L Troponin I High Sens (<3.5-17.0) ng/L B-Natriuretic Peptide (<100) pg/mL Total Protein (6.5-8.0) g/dL Albumin (3.5-5.0) g/dL TSH (0.32-4.0) uIU/mL Urine Color Yellow Urine Appearance Clear Urine pH 5.5 (5.0-9.0) Ur Specific [place] 1.015 (1.005-1.025) Urine Protein Trace (Neg-Trace) mg/dL Urine Glucose (UA) 250 H (Negative) mg/dL Urine Ketones Negative (Negative) mg/dL Urine Blood Negative (Negative) Urine Nitrite Negative (Negative) Ur Leukocyte Esterase Negative (Negative) COVID-19 (MELONIE) (Negative) COVID-19 Clin Com Discharge Plan Discharge Clinical Impression: Lethargy Patient Disposition: Home, Self-Care Instructions: Weakness (ED) Additional Instructions: Please follow-up with your primary care physician tomorrow. If you have any worsening or new symptoms, please return to the emergency room or call 911 Prescriptions: New lactulose 10 gram/15 mL (15 mL) solution 10 g PO DAILY PRN (Reason: laxative effect) Qty: 750 0RF Rx Instructions: Ensure daily bowel movements No Action atorvastatin 20 mg Tablet 20 mg PO DAILY divalproex 250 mg Tablet,Delayed Release (Dr/Ec) 750 mg PO DAILY famotidine 20 mg Tablet 20 mg PO DAILY levothyroxine 112 mcg Tablet 112 mcg PO DAILY@0600 insulin lispro 100 unit/mL Insulin Pen 1 sliding scale dose SUBCUT USEASDIRECTD lactulose [Enulose] 10 gram/15 mL Solution 20 g PO BID@0900,1700 pregabalin 75 mg Capsule 75 mg PO DAILY insulin detemir U-100 100 unit/mL Solution 80 unit SUBCUT DAILY insulin detemir U-100 100 unit/mL Solution 65 unit SUBCUT DAILY@1700 levofloxacin 500 mg tablet 500 mg PO DAILY Qty: 7 0RF baclofen 10 mg tablet 10 mg PO TID@0900,1300,1700 docusate sodium 100 mg capsule 100 mg PO DAILY furosemide 40 mg tablet 40 mg PO DAILY magnesium oxide 400 mg magnesium capsule 400 mg PO BID@0900,1700 trazodone 50 mg tablet 50 mg PO BEDTIME Xifaxan 550 mg tablet 550 mg PO TID sertraline 100 mg tablet 100 mg PO BEDTIME spironolactone 50 mg tablet 50 mg PO DAILY@1300 risperidone [Risperdal] 0.5 mg tablet 0.5 mg PO TID@0900,1300,1700
[2022-03-20 13:19] VITALS: BP 103/52; PULSE 72; RESP 15; O2SAT 93
[2022-03-20 14:01] LABS: MANUAL DIFF FLAG NO
[2022-03-20 14:03] LABS: Basophils Percent Auto 0.5 % (0-2); Eosinophils Absolute Auto 0.2 X10*3/uL (0.0-0.4); Eosinophils Percent Auto 3.2 % (0-4); Hematocrit 27.2 % (37.0-47.0); Hemoglobin 8.6 g/dl (12.0-16.0); Imm Gran Abs Auto 0.05 X10*3/uL (0.00-0.03); Imm Gran Pct Auto 0.8 % (0.0-0.4); Lymphocytes Absolute Auto 1.4 X10*3/uL (1.2-4.9); Lymphocytes Percent Auto 21.6 % (20-40); Mean Corpuscular HGB Conc 31.6 g/dl (31.0-35.0); Mean Corpuscular Hemoglobin 30.5 pg (27.0-33.0); Mean Corpuscular Volume 96.5 fL (80.0-98.0); Mean Platelet Volume 11.6 fL (9.4-12.3); Monocytes Absolute Auto 0.7 X10*3/uL (0.1-1.2); Monocytes Percent Auto 11.3 % (2-11); Neutrophils Absolute Auto 4.1 x10*3/uL (2.0-8.3); Neutrophils Percent Auto 62.6 % (45-73); Platelet Count 143 X10*3/uL (160-400); Red Blood Count 2.82 X10*6/uL (4.20-5.50); Red Cell Distribution Width 16.8 % (11.0-16.0); White Blood Count 6.5 X10*3/uL (4.8-10.8)
[2022-03-20 14:12] LABS: INTERNATIONAL NORM RATIO 1.2 (0.9-1.1); Prothrombin Time 14.1 SEC (10.0-13.1)
[2022-03-20 14:25] LABS: B Type Natriuretic Peptide 43 pg/mL (<100)
[2022-03-20 14:31] LABS: COVID-19 Test Negative (Negative); IDNOW Serial# 16C4AD1C
[2022-03-20 14:36] LABS: Ammonia 77 umol/L (13-55)
[2022-03-20 14:46] LABS: Troponin-I High Sensitivity < 3.5 ng/L (<3.5-17.0)
[2022-03-20 14:48] LABS: Lactic Acid 3.6 mmol/L (0.5-2.0)
[2022-03-20 15:00] LABS: TSH reflex Free T4 0.84 uIU/mL (0.32-4.0)
[2022-03-20 15:19] LABS: Anion Gap 17 (12-20)
[2022-03-20 15:25] LABS: Alanine Aminotransferase 28 U/L (0-31); Albumin Level 3.3 g/dL (3.5-5.0); Alkaline Phosphatase 153 U/L (39-117); Aspartate Amino Transferase 30 U/L (5-31); Bilirubin Direct 0.4 mg/dL (0.0-0.5); Bilirubin Total 0.7 mg/dL (0.0-1.0); Blood Urea Nitrogen 33 mg/dL (9-16); Calcium 9.2 mg/dL (8.4-10.2); Carbon Dioxide 18 mmol/L (22-29); Chloride 108 mmol/L (96-108); Creatinine Clr Calc Pharmacy 44.5; Estimated Glomerular Filt Rate 41; Glucose Random 260 mg/dL (60-115); Magnesium 1.8 mg/dL (1.6-2.6); Sodium 139 mmol/L (135-145); Total Protein 8.7 g/dL (6.5-8.0)
[2022-03-20] MEDS: 0.9 % Sodium Chloride 1,000 ML 999 ML IVCONT ×2 (16:16→16:55)
[2022-03-20 16:23] LABS: Reflex Lactate? Lactic Acid Added
[2022-03-20 16:55] LABS: Lactic Acid 3.2 mmol/L (0.5-2.0)
[2022-03-20 17:15] LABS: Appearance Urine Clear; Color Urine Yellow; Glucose Urine UA 250 mg/dL (Negative); Leukocyte Esterase Urine Negative (Negative); Nitrite Urine Negative (Negative); PH 5.5 (5.0-9.0); Specific Gravity - Urine 1.015 (1.005-1.025); Urine Blood Negative (Negative); Urine Ketones Negative (Negative); Urine Protein Trace mg/dL (Neg-Trace)
[2022-03-20 18:05] LABS: ~Lactic Acid-LAB USE ONLY 1.7 mmol/L (0.5-2.0)
[2022-03-20 18:20] LABS: Reflex Lactate? Lactic Acid Added
== END 2022-03-20 21:37 | disposition home or self-care (01) ==
PROVIDERS: Emergency Provider Emergency Medicine; PCP Internal Medicine
DX: R53.83 Other fatigue (principal); R50.9 Fever, unspecified; Z20.822 Contact with and (suspected) exposure to COVID-19; E11.9 Type 2 diabetes mellitus without complications; K74.60 Unspecified cirrhosis of liver; Z87.820 Personal history of traumatic brain injury; Z79.899 Other long term (current) drug therapy; Z79.02 Long term (current) use of antithrombotics/antiplatelets; Z79.4 Long term (current) use of insulin
CPT/HCPCS: 36415; 71045; 80048; 80076; 81003; 82140; 83605; 83735; 83880; 84443; 84484; 85025; 85610; 87040; 87635; 93005; 96360; 96361; 99285

== ENCOUNTER 2022-05-30 11:27 | Outpatient (REF) | payer MEDICARE, MEDICAID, SELFPAY ==
[2022-05-30 13:15] LABS: Hematocrit 25.4 % (37.0-47.0); Mean Corpuscular HGB Conc 31.5 g/dl (31.0-35.0); Mean Corpuscular Hemoglobin 29.1 pg (27.0-33.0); Mean Corpuscular Volume 92.4 fL (80.0-98.0); Mean Platelet Volume 11.5 fL (9.4-12.3); Platelet Count 118 X10*3/uL (160-400); Red Blood Count 2.75 X10*6/uL (4.20-5.50); White Blood Count 5.2 X10*3/uL (4.8-10.8)
[2022-05-30 13:21] LABS: INTERNATIONAL NORM RATIO 1.2 (0.9-1.1)
[2022-05-30 14:01] LABS: Alanine Aminotransferase 39 U/L (0-31); Albumin Level 3.2 g/dL (3.5-5.0); Alkaline Phosphatase 201 U/L (39-117); Anion Gap 18 (12-20); Aspartate Amino Transferase 43 U/L (5-31); Bilirubin Total 1.1 mg/dL (0.0-1.0); Blood Urea Nitrogen 22 mg/dL (9-16); Carbon Dioxide 18 mmol/L (22-29); Chloride 102 mmol/L (96-108); Estimated Glomerular Filt Rate 52; Glucose Random 300 mg/dL (60-115); Iron 45 mcg/dL (30-160); Percent Iron Saturation 14 % (15-50); Potassium 4.3 mmol/L (3.3-5.1); Sodium 134 mmol/L (135-145); Total Iron Binding Capacity 324 mcg/dL (228-428); Unsaturated Iron Binding 279 ug/dL
[2022-05-30 14:16] LABS: Ferritin 40 ng/mL (10-250); Folate 18.6 ng/mL (> or = 4.0); Vitamin B12 1108 pg/mL (200-900)
[2022-05-31 07:11] LABS: ~HepC Num1 0.28 S/CO (0.00-0.79); ~Hepatitis C Antibody Nonreactive (Nonreactive)
[2022-05-31 07:12] LABS: HBS Num1 0.56 mIU/mL (0-7.99); HBc Num1 0.17 S/CO (0.00-0.79); HBsAGNum1 0.28 S/CO (0.00-0.99); Hepatitis A Antibody IgG REACTIVE (Nonreactive); Hepatitis B Core Antibody Nonreactive (Nonreactive); Hepatitis B Surface Antigen Negative (Negative); ~Hepatitis A Antibody IgG 1.38 S/CO (0.00-0.99); ~Hepatitis B Surface Antibody NONREACTIVE (Nonreactive)
[2022-06-01 13:37] LABS: Alpha Fetoprotein 1.8 ng/mL
[2022-06-08 08:29] LABS: Phosphatidylethanol 16:0-18:1 None Detected
== END 2022-05-30 11:28 | disposition home or self-care (01) ==
LOC: HO.LAB 11:27
PROVIDERS: Visit Provider Internal Medicine
DX: K74.60 Unspecified cirrhosis of liver (principal); D64.9 Anemia, unspecified; R18.8 Other ascites; R19.7 Diarrhea, unspecified; Z79.899 Other long term (current) drug therapy; Z11.59 Encounter for screening for other viral diseases; Z72.89 Other problems related to lifestyle
CPT/HCPCS: 36415; 80053; 80321; 82105; 82607; 82728; 82746; 83540; 85027; 85610; 86704; 86706; 86708; 86803; 87340; 99202; 99212

== ENCOUNTER 2022-06-05 09:08 | Day surgery (SDC) | payer MEDICARE, MEDICAID, SELFPAY ==
--- NOTE | ~2022-06-05 | US_ITS ---
EXAMINATION: US ABDOMEN LIMITED CLINICAL INFORMATION: Unspecified cirrhosis of liver. COMPARISON: Ultrasound abdomen complete 10/19/2020. TECHNIQUE: Real-time imaging of the right upper quadrant, right lower quadrant, left upper quadrant, and left lower quadrant. FINDINGS: No ascites. US/US abdomen limited IMPRESSION: No ascites.
[2022-06-05 09:22] VITALS: BMI 27.8
[2022-06-05 09:45] LABS: Glucose, Whole Blood 227 mg/dL (60-115)
--- NOTE | 2022-06-05 11:14 | HO.RADPN ---
RADIOLOGY Narrative Narrative: No ascites. Paracentesis not done.
== END 2022-06-05 11:21 | disposition home or self-care (01) ==
LOC: HO.SSS 09:08
PROVIDERS: Visit Provider Radiology Diagnostic Radiology
DX: K74.60 Unspecified cirrhosis of liver (principal); K72.90 Hepatic failure, unspecified without coma; E11.9 Type 2 diabetes mellitus without complications; D64.9 Anemia, unspecified
CPT/HCPCS: 76705; 82947

== ENCOUNTER → 2022-08-14 11:32 | Outpatient (BNVA) | payer MEDICARE, MEDICAID, SELFPAY | PROVIDERS: Visit Provider Internal Medicine | DX: K74.60 Unspecified cirrhosis of liver (principal); R18.8 Other ascites; K72.00 Acute and subacute hepatic failure without coma; N17.9 Acute kidney failure, unspecified | CPT/HCPCS: 99212 ==

== ENCOUNTER 2022-09-18 12:54 | Outpatient (AMB) | payer MEDICARE, MEDICAID, SELFPAY ==
--- NOTE | 2022-09-18 12:57 | MHC.OFFVIS ---
Intake Vital Signs 09/18/22 12:59 Height 5 ft 2 in Weight 152 lb BMI 27.8 BP 122/56 L Blood Pressure Location Lt brachial Position Sitting Pulse 86 Intake Visit Reasons: 4 week f/u re--discuss double Intake Note: Christina presents in the office as a 4 week follow up to [facility] having an EGD and COLO. CC: Patient is confused with the medications and person with her is unaware of any changes. She is concerned about her abdomen being bloated. She takes lactulose twice a day. She states that she does have a hernia. Champagne Maker Required: No Allergies carrot Allergy (Mild, Verified 09/18/22 13:01) Unknown enoxaparin Allergy (Mild, Verified 09/18/22 13:01) Unknown fondaparinux Allergy (Mild, Verified 09/18/22 13:01) Unknown heparin Allergy (Mild, Verified 09/18/22 13:01) Unknown Iodinated Contrast Media Allergy (Mild, Verified 09/18/22 13:01) Unknown lorazepam [From Ativan] Allergy (Mild, Verified 09/18/22 13:01) Unknown olanzapine Allergy (Mild, Verified 09/18/22 13:01) Unknown perphenazine Allergy (Mild, Verified 09/18/22 13:01) Unknown quetiapine Allergy (Mild, Verified 09/18/22 13:01) Unknown Sulfa (Sulfonamide Antibiotics) Allergy (Mild, Verified 09/18/22 13:01) Unknown beet Allergy (Mild, Uncoded 09/18/22 13:01) Unknown oxycodone Allergy (Mild, Uncoded 09/18/22 13:01) Unknown HPI HPI Comments History of Present Illness Details This is a 62 year old female with past medical history pertinent for decompensated liver cirrhosis (hepatic encephalopathy, ascites) likely 2/2 HERNANDEZ who is coming in for follow up. 05/30/22: Pt was last seen by our office in 09/2020 after admission to [facility] in [place] for AMS but she lost to follow up. Today, main complaint is abdominal distention which has been present for a few months. Associated with abdominal discomfort and chest pressure. Today also has been having diarrhea had 6 BMs just in the morning. At baseline she goes once a day or every other day with the lactulose. No blood in stool. Appetite is good. Etiology of cirrhosis assumed to be HERNANDEZ. Pt has not seen a bruise trimmer in 2 years. Has never had endoscopy for variceal screening. Last US was done in Oct by [facility]. Report not available. Current cirrhosis related meds: lactulose and spironolactone 50. 08/14/22: Labs reviewed. Continues to be anemic, although ferritin not terrible. US abd done 08/10/22 through [facility] and shows trace ascites with no focal liver lesions. Splenomegaly. Main complaint remains abd distention and bloating. Diarrhea better from before but unsure if she is still taking lactulose. No fevers, chills, N,V, change in appetite. Unable to comment on any confusional spells and the aid accompanying the pt today is also unable to corroborate. 09/18/22: Was booked for a follow up today through her facility as there was some miscommunication re booking her procedures. Pt's main concern remains increased abdominal bloating and distention. Reports this also limits her appetite and activity. Moving her bowels and cont to take lactulose. Also on spironolactone 50, although has not had any ascites on US x 2 (May [facility], and July [facility] recent labs: 08/14 Na 136 K 4.6 BUN 27 Cr 1.04 [facility] Medical History Acute and subacute hepatic failure without coma Acute kidney failure Bipolar disorder Brain injury Cirrhosis of liver Contracture, right hand Hammer toe Nail dystrophy Other seizures Presbyopia Tinea manuum, pedis, and unguium Type 2 diabetes mellitus Surgical History History of lumpectomy Hx of colonoscopy Previous back surgery Social History Household Members: Other Household Members Other:: retirement Housing: Assisted Do you presently have visiting nurse or other home services: No Unable to assess alcohol history related to: Unknown Alcohol intake: never Patient Tobacco Use Status: Tobacco use Unknown Advance Directives Date on File: 04/06/21 service: No Current occupational status: disabled Review of Systems Const All systems reviewed & are unremarkable except as noted in HPI and below Physical Exam Vital Signs: Last Vital Signs Pulse 86 09/18/22 12:59 BP 122/56 L 09/18/22 12:59 BMI result Body Mass Index 27.8 Gen appear: chronically ill appearing. In a wheelchair today HEENT: nonicteric Chest: CTA CVS: s1, s2 ABd: soft, significantly distended, tympanic to percussion, mildly tender Ext: ++ peripheral edema Neuro: A/Ox3, no asterixis Assessment & Plan Assessment & Plan (1) Cirrhosis of liver with ascites: Code(s): K74.60 - Unspecified cirrhosis of liver; R18.8 - Other ascites (2) Hepatic encephalopathy: Code(s): K72.90 - Hepatic failure, unspecified without coma Plan 1. 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 Suspect most of abd distention is from enlarged liver and spleen. No focal liver lesions, AFP normal. Exam today also suggestive of gaseous distention. However given worsening distention over the last few weeks, will obtain dedicated CT Abd/pel for further assessment. In the meantime, would hold lactulose as that can worsen distention. Mod to high probability of varices given platelet count and splenomegaly. EGD to be booked as previously discussed. Plan: - EGD to be booked - CT abd/pel with IV contrast. Renal function is ok per labs in July. - Hold lactulose. Start Rifaximin 550mg BID instead. - Low salt diet - Low MELD and therefore transplant eval not indicated at this time. 2. Anemia: Has had macrocytic anemia since at least a year. Iron panel with ferritin of 40 and low iron %. Agreeable to bidirectional endoscopy. - Night before PEG prep instructions for logistical feasibility. - Golytely recommended. Can use miralax 238g mixed in 64 oz gatorade as well if pt prefers lower volume prep. Follow up after scopes Medications: New rifaximin 550 mg PO BID 60 tabs 2RF 30 days Coding Level of Care Code Est Pt Level 4 (99058) Diagnoses Cirrhosis of liver with ascites K74.60; R18.8 Hepatic encephalopathy K72.90
[2022-09-18 12:59] VITALS: BP 122/56; PULSE 86; BMI 27.8
== END 2022-09-18 14:34 | disposition home or self-care (01) ==
PROVIDERS: Visit Provider Internal Medicine
DX: K74.60 Unspecified cirrhosis of liver (principal); R18.8 Other ascites; K72.90 Hepatic failure, unspecified without coma
CPT/HCPCS: 99214

== ENCOUNTER → 2022-09-18 12:54 | Outpatient (BNVA) | payer MEDICARE, MEDICAID, SELFPAY | PROVIDERS: Visit Provider Internal Medicine | DX: K74.60 Unspecified cirrhosis of liver (principal); K72.90 Hepatic failure, unspecified without coma; R18.8 Other ascites | CPT/HCPCS: 99212 ==

== ENCOUNTER → 2022-09-19 13:51 | Outpatient (REF) | payer MEDICARE, MEDICAID, SELFPAY ==
--- NOTE | 2022-09-19 13:58 | CA_ITS ---
Transthoracic Echocardiogram Patient (Last, First, Middle): Christina Ching, Gender: Female Date of : 1960 Age: 62 Procedure Date: 09/19/2022 Procedure Type: Transthoracic Echocardiogram Location: OP Height: 187.96 cm Weight: 68.49 kg BSA: 1.93 m2 Heart Rate: 92 bpm BP: 124 / 74 mmHg Asset Management Analyst: SB Referring MD: Gracia Pinzon MD Van Driver Helper: Rene Willoughby MD Symptoms: R60.9 - Edema, unspecified Study Quality: Technically Difficult ECG Rhythm: Sinus Conclusions: - 1. Technically limited study due to off axis views. 2. Normal LV ejection fraction at 55-60% with grade 1 diastolic dysfunction 3. Cardiac valvular Doppler within normal limits 4. No gross pericardial effusion Findings Procedure Information Contrast agent, definity, is being given per protocol without apparent complications. Left Ventricle Normal left ventricular size, thickness, and systolic function. The visually estimated ejection fraction is between 55-60%. Regional wall motion abnormalities can not be excluded due to suboptimal endocardial definition. Spectral Doppler is indicative of an impaired relaxation filling pattern. E/E prime ratio is <8, consistent with normal filling pressures. Evidence suggests grade I (mild) diastolic dysfunction. Right Ventricle The right ventricle was not well visualized. Atria The left atrium is normal in size. Interatrial shunt cannot be excluded. The right atrium was not well visualized. Aortic Valve There is mild calcification of the aortic valve. There is no aortic valve stenosis. There is no aortic valve regurgitation. Mitral Valve The mitral valve was not well visualized. There is no mitral valve regurgitation. There is no mitral valve stenosis. Pulmonic Valve The pulmonic valve was not well visualized. Tricuspid Valve Likely normal tricuspid valve structure and function. Tricuspid regurgitation envelope is inadequate for calculation of right ventricular systolic pressure. Normal right atrial pressure. Great Vessels The aorta was not well visualized. The pulmonary artery was not well visualized. Venous The inferior vena cava is normal in size and collapses greater than 50% with inspiration. Pericardium/Pleural There is no evidence of pericardial effusion. Prior Study Comparison No prior study available for comparison. Measurements 2D Linear Measurements IVSd: 1.14 0.6-0.9/0.6-1.0 cm LVIDd: 3.58 3.9-5.3/4.2-5.9 cm LVIDd Index: 1.85 2.4-3.2/2.2-3.1 cm/m2 LVIDs: 2.28 2.0-3.6 cm LVPWd: 0.70 0.7-1.1 cm LA Diam: 3.60 2.7-3.8/3.0-4.0 cm LAIDs Index: 1.87 1.5-2.3 cm/m2 LV Mass: 117.41 67-162/88-224 g LV Mass Index: 60.84 43-95/49-115 g/m2 LVOT Diam: 2.00 3.0+(-)1.3 cm 2D Systolic Function EF 4C: 54.80 >55% EF 2C: 56.50 >55% EF BiP: 54.50 >55% Mitral Valve MV Pk E: 0.58 MV PK A: 0.57 MV Decel Time: 220.00 E/A: 1.00 E'Lateral: 8.49 E'Medial: 6.64 E/E' Med: 8.70 E/E' Lat: 6.80 PHT: 64.00 MVA PHT: 3.44 Decel [place]: 2.63 Aortic Valve AoV Pk Gio: 1.31 AoV Pk Grad: 7.00 CARINA: 2.24 LVOT LVOT Pk Gio: 0.94 LVOT Mn Gio: 0.70 LVOT VTI: 0.18 LVOT Pk Grad: 4.00 LVOT Mn Grad: 2.00 LVOT Diam: 2.00 LVOT Area: 3.14 Diastolic Function MV Pk E: 0.58 MV Pk A: 0.57 E/A: 1.00 E'Medial: 6.64 E/E' Med: 8.70 E' Laterial: 8.49 E/E' Lat: 6.80 Right Ventricle TAPSE (mm): 15.20 TVS' Gio: 9.68 Tricuspid Valve RA Press: 8.00 Great Vessels Aorta Sinus of Valsalva: 2.80 2.0-3.5 cm Ao Asc: 2.80 2.1-3.4 cm Pulmonary Valve PV Pk Gio: 0.94 Peak PV Grad: 4.00 Updated in Other Vendor System with Status of Final Rene Willoughby MD electronically signed on 09/19/2022 4:15:04 PM with status of Final
== END ==
LOC: HO.CARD 13:51
PROVIDERS: Visit Provider Internal Medicine
DX: R80.9 Proteinuria, unspecified (principal)
CPT/HCPCS: 93306; Q9957

== ENCOUNTER → 2022-09-19 13:58 | Outpatient (BNV) | payer MEDICARE, MEDICAID, SELFPAY | PROVIDERS: Visit Provider Internal Medicine Cardiovascular Disease | DX: I35.8 Other nonrheumatic aortic valve disorders (principal); I51.9 Heart disease, unspecified | CPT/HCPCS: 93306 ==

== ENCOUNTER 2022-11-30 11:19 | Day surgery (SDC) | payer MEDICARE, MEDICAID, SELFPAY ==
--- NOTE | 2022-11-29 20:44 | P.CONAN_ITS ---
HPI - Anesthesia Eval Consult details Narrative: Cirrhosis, EGD for variceal screening, colonoscopy [facility] Active Problems Active Problems: All Active Problems (Updated 11/29/22 @ 11:45 by Mady Portillo, RN) Peripheral edema (Acute) Anemia (Acute) Cirrhosis of liver with ascites (Acute) Hepatic encephalopathy (Acute) Cirrhosis of liver (Acute) Type 2 diabetes mellitus (Acute) Past Medical History Medical History (Updated 11/29/22 @ 11:45 by Mady Portillo, RN) Hyperlipidemia GERD (gastroesophageal reflux disease) Dysphagia Anemia Carlos disease Diabetic neuropathy Hypothyroid Borderline personality disorder History of electroconvulsive therapy PTSD (post-traumatic stress disorder) Depression Other seizures Acute kidney failure Bipolar disorder Hammer toe Acute and subacute hepatic failure without coma Presbyopia Cirrhosis of liver Nail dystrophy Tinea manuum, pedis, and unguium Type 2 diabetes mellitus Contracture, right hand Brain injury Family History Family history of problems with anesthesia: No Surgical History Surgical History Hx of colonoscopy History of lumpectomy Previous back surgery History of Problems with Anesthesia: No Social History Social History Household Members: Other Household Members Other:: fdc Housing: Longterm Do you presently have visiting nurse or other home services: No Unable to assess alcohol history related to: Unknown Alcohol intake: never Patient Tobacco Use Status: Tobacco use Unknown Advance Directives Date on File: 04/06/21 service: No Current occupational status: disabled Meds Allergies Allergy/AdvReac Type Severity Reaction Status Date / Time carrot Allergy Mild Unknown Verified 09/18/22 13:01 enoxaparin Allergy Mild Unknown Verified 09/18/22 13:01 fondaparinux Allergy Mild Unknown Verified 09/18/22 13:01 heparin Allergy Mild Unknown Verified 09/18/22 13:01 Iodinated Contrast Media Allergy Mild Unknown Verified 09/18/22 13:01 lorazepam [From Ativan] Allergy Mild Unknown Verified 09/18/22 13:01 olanzapine Allergy Mild Unknown Verified 09/18/22 13:01 perphenazine Allergy Mild Unknown Verified 09/18/22 13:01 quetiapine Allergy Mild Unknown Verified 09/18/22 13:01 Sulfa (Sulfonamide Allergy Mild Unknown Verified 09/18/22 13:01 Antibiotics) beet Allergy Mild Unknown Uncoded 09/18/22 13:01 oxycodone Allergy Mild Unknown Uncoded 09/18/22 13:01 Home Medications Medication Instructions Recorded Confirmed Last Taken Type baclofen 10 mg tablet 10 mg PO TID@0900,1300,1700 09/27/20 11/29/22 04/05/21 History spironolactone 50 mg tablet 50 mg PO DAILY@1300 02/07/21 11/29/22 04/05/21 History trazodone 50 mg tablet 50 mg PO BEDTIME 02/07/21 11/29/22 04/05/21 History atorvastatin 20 mg tablet 20 mg PO DAILY 04/06/21 11/29/22 04/05/21 History famotidine 20 mg tablet 20 mg PO DAILY 04/06/21 11/29/22 04/05/21 History aripiprazole 5 mg tablet 5 mg PO DAILY 05/30/22 11/29/22 Unknown History bisacodyl 10 mg rectal suppository 10 mg NH DAILY PRN Constipation 05/30/22 11/29/22 Unknown History clonazepam 0.5 mg tablet 0.5 mg PO BID PRN Anxiety 05/30/22 11/29/22 Unknown History clonazepam 0.5 mg tablet 0.5 mg PO TID 05/30/22 11/29/22 Unknown History cranberry 400 mg capsule 400 mg PO DAILY 05/30/22 11/29/22 Unknown History guaifenesin 600 mg tablet, 600 mg PO Q12H PRN Congestion 05/30/22 11/29/22 Unknown History extended release 12 hr insulin aspart U-100 100 unit/mL 1 sliding scale dose subcut 05/30/22 11/29/22 Unknown History (3 mL) subcutaneous pen (Novolog USEASDIRECTD FlexPen U-100 Insulin aspart) magnesium hydroxide 400 mg/5 mL 30 ml PO DAILY PRN Diarrhea 05/30/22 11/29/22 Unknown History oral suspension (Milk of Magnesia) mecobalamin (vitamin B12) 1,000 1,000 mcg PO DAILY 05/30/22 11/29/22 Unknown History mcg lozenges metformin 1,000 mg tablet 1,000 mg PO BID 05/30/22 11/29/22 Unknown History pregabalin 50 mg capsule 50 mg PO BID 05/30/22 11/29/22 Unknown History pregabalin 75 mg capsule 75 mg PO BEDTIME 05/30/22 11/29/22 Unknown History sodium phosphates 19 gram-7 118 ml NH BEDTIME PRN Constipation 05/30/22 11/29/22 Unknown History gram/118 mL enema (Pure and Gentle (saline)) triamcinolone acetonide 0.1 % 1 appl topical BID-TID 05/30/22 11/29/22 Unknown History topical cream ferrous sulfate 325 mg (65 mg 325 mg PO DAILY 11/29/22 11/29/22 Unknown History iron) tablet insulin degludec 100 unit/mL 78 unit subcut BID 11/29/22 11/29/22 Unknown History subcutaneous solution (Tresiba U-100 Insulin) lactulose 20 gram/30 mL oral 20 g PO BID 11/29/22 11/29/22 Unknown History solution levothyroxine 125 mcg tablet 125 mcg PO DAILY 11/29/22 11/29/22 Unknown History lidocaine 4 % topical patch 1 patch topical DAILY 11/29/22 11/29/22 Unknown History (Lidocaine Pain Relief) sertraline 100 mg tablet 100 mg PO DAILY 11/29/22 11/29/22 Unknown History sertraline 25 mg tablet 25 mg PO DAILY 11/29/22 11/29/22 Unknown History Exam Exam Date and Time: November 29, 20222043 Airway Mallampati Class: II TM Dist: >3cm Neck ROM: Limited Heart: rrr Lungs: cta Assessment and Plan Final Anesthetic Review Family History of Problems with Anesthesia: No History of Problems with Anesthesia: No NPO: Yes ASA Class: IV Final Preanesthetic Review: No Changes in Pt Med Stat, Meds/Allgs Chart Reviewed, Consent Obtained/Reviewed and Anes Risks/Benef Reviewed Patient Risk: High Procedure Risk: Intermediate Anesthetic Plan Anesthetic Plan: GA and MAC: Disposition: Standard PACU
[2022-11-30] VITALS (7 sets, daily range): BP systolic 98–144; BP diastolic 50–87; PULSE 81–91; RESP 14–18; TEMP 36.2–36.9; O2SAT 92–95; BMI 27.8
--- NOTE | 2022-11-30 11:53 | MHC.SHP ---
Pre-Procedural Eval Section A Date of Service: 11/30/22 Section B Chief Complaint: Cirrhosis, anemia Details of Present Illness: PPMH: Acute and subacute hepatic failure without coma Bipolar disorder Brain injury Cirrhosis of liver Contracture, right hand Hammer toe Nail dystrophy Other seizures Presbyopia Tinea manuum, pedis, and unguium Type 2 diabetes mellitus Surgical History History of lumpectomy Hx of colonoscopy Previous back surgery Present Medications: see Short Stay Collaborative assessment Allergies: Allergies Allergy/AdvReac Type Severity Reaction Status Date / Time carrot Allergy Mild Unknown Verified 09/18/22 13:01 enoxaparin Allergy Mild Unknown Verified 09/18/22 13:01 fondaparinux Allergy Mild Unknown Verified 09/18/22 13:01 heparin Allergy Mild Unknown Verified 09/18/22 13:01 Iodinated Contrast Media Allergy Mild Unknown Verified 09/18/22 13:01 lorazepam [From Ativan] Allergy Mild Unknown Verified 09/18/22 13:01 olanzapine Allergy Mild Unknown Verified 09/18/22 13:01 perphenazine Allergy Mild Unknown Verified 09/18/22 13:01 quetiapine Allergy Mild Unknown Verified 09/18/22 13:01 Sulfa (Sulfonamide Allergy Mild Unknown Verified 09/18/22 13:01 Antibiotics) beet Allergy Mild Unknown Uncoded 09/18/22 13:01 oxycodone Allergy Mild Unknown Uncoded 09/18/22 13:01 Exam Exam Comment: Gen appear: No acute distress HEENT: no icterus Chest: No overt resp distress Abd: soft, nontender, nondistended Psych: Stable affect, answering questions appropriately Neuro: A/Ox3, contracted RUE but moves all extremities Ext: no peripheral edema Plan Diagnosis/Plan: Unchanged I have reviewed the history and physical and performed a pertinent physical examination on my patient. No changes have occurred unless specified. Time Spent With Patient Time: Total time managing care of this patient today ____ minutes.
--- NOTE | 2022-11-30 12:25 | PC.NURSE ---
fleet enema performed. patient having solid brown/yellow stool coming out after enema twice. patients customer advocacy manager called the facility and spoke to the other customer advocacy manager that was taking care of her and stated she ate breakfast and lunch and that her bm output was brown. redness noted to her vaginal bilateral labia. no skin breakdown noted on her buttocks.
--- NOTE | 2022-11-30 12:44 | W.PM.OPN ---
Operative Note Operative Note Date of Service: 11/30/22 Narrative: Procedure:?Esophagogastroduodenoscopy and colonoscopy Endoscopist:?Gracia Pinzon MD Indication:?Cirrhosis and anemia Anesthesia Provider:?Dr Rl Fontenot MD Anesthesia Type:?MAC Instrument:?Olympus GIF-H190, PCF-H190L EGD Procedure:?? The procedure, indications, preparation and potential complications were reviewed with the patient who indicated understanding and gave written informed consent to proceed. A physical exam was performed. The endoscope was introduced through the mouth, and advanced to the second part of duodenum. The mucosa was carefully examined on slow withdrawal of the endoscope. There were no immediate complications. Patient tolerated the procedure well. EGD Findings:? Esophagus:? Normal mucosa noted in the entire esophagus. The Z-line is at 40 cm. Large varices were noted up to 32 cm with red balbir signs. Stomach:? Diffuse congestion and erythema in mosaic pattern consistent with portal hypertensive gastropathy was noted in the whole stomach. Retroflexion performed in the fundus. Duodenum:? Normal duodenal mucosa noted to the extent examined. Cold forceps biopsies were taken from the duodenal bulb and 2nd portion the duodenum to rule out celiac sprue. Additional intervention: The gastroscope was removed and [employer] multibander was affixed in the usual fashion. x2 bands were deployed at 39 and 37 cm with complete decompression of variceal columns. Colonoscopy Procedure:? The patient was then turned for the colonoscopy. A digital rectal exam was performed which was abnormal for external hemorrhoids.? A distal attachment cap was affixed to the tip of the scope and the colonoscope was then inserted through the anus and advanced through the colon to the cecum at 75 cm and terminal ileum. Appendiceal orifice and ileocecal valve were identified. Mucosa was carefully examined under high definition white light as the instrument was slowly withdrawn in a retrograde panoramic fashion. Retroflexion was performed in rectum. The procedure was moderately difficult due to redundant colon and looping in the transverse colon. There were no immediate obvious complications. The quality of the prep was BBPS: 2+2+2 = adequate Withdrawal time: 25 minutes Limitations: No limitation. Findings: Mucosa: The appendiceal orifice was abnormal and protruding into the cecum with adherent whitish exudate covering the actual orifice. Cold forceps biopsies were taken for histology. Remaining mucosa to cecum and terminal ileum was normal. Protruding lesions: 1 sessile polyp of size 5 mm was noted in ascending colon. Cold snare polypectomy was performed. The polyp was completely removed and retrieved. 1 sessile polyp of size 4 mm was noted in transverse colon. Cold snare polypectomy was performed. The polyp was completely removed and retrieved. 2 sessile polyps of size 2-6 mm was noted in descending colon. Cold forceps polypectomy was done for the smaller one and the 6 mm polyp was removed with cold snare. The polyps were completely removed and retrieved. 2 sessile polyps of size 4-5 mm was noted in sigmoid colon. Cold snare polypectomy was performed. The polyps were completely removed and retrieved. Large internal hemorrhoids without stigmata of recent bleeding. Impression: 1. Esophageal varices (banding) 2. Portal hypertensive gastropathy 3. Normal duodenum (biopsy) 4. Abnormal appendix suspicious for mucocele (biopsy) 5. Normal colon and terminal ileum mucosa 6. Total of 6 polyps removed 7. Large internal and external hemorrhoids Recommendations:?? Await pathology results. CT Abd/pel was ordered at the last office visit. Will follow up on the status and expedite it. Start carvedilol 3.125 BID for variceal prophylaxis Repeat colonoscopy in 3 years if 3 or more polyps are adenomas.
== END 2022-11-30 16:16 | disposition home or self-care (01) ==
PROVIDERS: Visit Provider Internal Medicine
PROC: (CPT 45385; principal; 2022-11-30 12:50)
DX: D64.9 Anemia, unspecified (principal); K74.60 Unspecified cirrhosis of liver; D12.1 Benign neoplasm of appendix; K63.5 Polyp of colon; K64.8 Other hemorrhoids; K72.00 Acute and subacute hepatic failure without coma; K64.4 Residual hemorrhoidal skin tags; K76.6 Portal hypertension; K31.89 Other diseases of stomach and duodenum; K21.9 Gastro-esophageal reflux disease without esophagitis; I85.00 Esophageal varices without bleeding; E11.40 Type 2 diabetes mellitus with diabetic neuropathy, unspecified; E78.5 Hyperlipidemia, unspecified; R56.9 Unspecified convulsions; Z79.4 Long term (current) use of insulin; Z88.2 Allergy status to sulfonamides; Z88.8 Allergy status to other drugs, medicaments and biological substances; Z91.041 Radiographic dye allergy status; Z79.899 Other long term (current) drug therapy; Z98.890 Other specified postprocedural states
CPT/HCPCS: 45385; 45380; 43239; 43244; 36415; 80053; 82947; 85025; 85610; 88305; J1100; J2405

== ENCOUNTER → 2022-11-30 11:19 | Outpatient (BNV) | payer MEDICARE, MEDICAID, SELFPAY | PROVIDERS: Visit Provider Internal Medicine | DX: K74.69 Other cirrhosis of liver (principal); D64.9 Anemia, unspecified; I85.00 Esophageal varices without bleeding; D12.2 Benign neoplasm of ascending colon; D12.3 Benign neoplasm of transverse colon; D12.4 Benign neoplasm of descending colon; D12.5 Benign neoplasm of sigmoid colon | CPT/HCPCS: 43239; 43244; 45380; 45385 ==

== ENCOUNTER 2022-12-05 14:09 | Outpatient (REF) | payer MEDICARE, MEDICAID, SELFPAY | END 2022-12-05 14:10 | disposition home or self-care (01) | LOC: HO.CT 14:09 | PROVIDERS: Visit Provider Internal Medicine | DX: S36.899A Unspecified injury of other intra-abdominal organs, initial encounter (principal) | CPT/HCPCS: 74176 ==

== ENCOUNTER 2022-12-19 09:20 | Outpatient (AMB) | payer MEDICARE, MEDICAID, SELFPAY ==
--- NOTE | 2022-12-19 09:25 | A.OFFVIS_ITS ---
Intake Vital Signs 12/19/22 09:33 Height 5 ft 2 in Weight 152 lb BMI 27.8 BP 98/47 L Blood Pressure Location Lt brachial Position Sitting Pulse 70 Intake Visit Reasons: S/P double; Dr. Pinzon Intake Note: Christina presents in the office as a follow up egd and colo. CC: She is here for results to her procedures - she is very sleepy and not very responsive. Allergies carrot Allergy (Mild, Verified 12/19/22 09:28) Unknown enoxaparin Allergy (Mild, Verified 12/19/22 09:28) Unknown fondaparinux Allergy (Mild, Verified 12/19/22 09:28) Unknown heparin Allergy (Mild, Verified 12/19/22 09:28) Unknown Iodinated Contrast Media Allergy (Mild, Verified 12/19/22 09:28) Unknown lorazepam [From Ativan] Allergy (Mild, Verified 12/19/22 09:28) Unknown olanzapine Allergy (Mild, Verified 12/19/22 09:28) Unknown perphenazine Allergy (Mild, Verified 12/19/22 09:28) Unknown quetiapine Allergy (Mild, Verified 12/19/22 09:28) Unknown Sulfa (Sulfonamide Antibiotics) Allergy (Mild, Verified 12/19/22 09:28) Unknown beet Allergy (Mild, Uncoded 12/19/22 09:28) Unknown oxycodone Allergy (Mild, Uncoded 12/19/22 09:28) Unknown HPI HPI Comments History of Present Illness Details This is a 62 year old female with past medical history pertinent for decompensated liver cirrhosis (hepatic encephalopathy, ascites) likely 2/2 HERNANDEZ who is coming in for follow up. 05/30/22: Pt was last seen by our office in 09/2020 after admission to [facility] for AMS but she lost to follow up. Today, main complaint is abdominal distention which has been present for a few months. Associated with abdominal discomfort and chest pressure. Today also has been having diarrhea had 6 BMs just in the morning. At baseline she goes once a day or every other day with the lactulose. No blood in stool. Appetite is good. Etiology of cirrhosis assumed to be HERNANDEZ. Pt has not seen a plodder operator in 2 years. Has never had endoscopy for variceal screening. Last US was done in Oct by [facility]. Report not available. Current cirrhosis related meds: lactulose and spironolactone 50. 08/14/22: Labs reviewed. Continues to be anemic, although ferritin not terrible. [facility] abd [facility] 08/10/22 [facility] and shows trace ascites with no focal liver lesions. Splenomegaly. Main complaint remains abd distention and bloating. Diarrhea better from before but unsure if she is still taking lactulose. No fevers, chills, N,V, change in appetite. Unable to comment on any confusional spells and the aid accompanying the pt today is also unable to corroborate. 09/18/22: Was booked for a follow up today through her facility as there was some miscommunication re booking her procedures. Pt's main concern remains increased abdominal bloating and distention. Reports this also limits her appetite and activity. Moving her bowels and cont to take lactulose. Also on spironolactone 50, although has not had any ascites on US x 2 [place] [facility] [facility] recent labs: 08/14 Na 136 K 4.6 BUN 27 Cr 1.04 11/30/22: EGD/colo: 1. Esophageal varices (banding) 2. Portal hypertensive gastropathy 3. Normal duodenum (biopsy) 4. Abnormal appendix suspicious for muco braulio (biopsy) 5. Normal colon and terminal ileum mucos a 6. Total of 6 polyps removed 7. Large internal and external hemorrhoi ds Path: A. Duodenum, biopsy: Duodenal mucosa within normal limits. B. Colon, descending, polypectomies (2): Hyperplastic mucosal polyps. C. Colon, ascending, polypectomy: Colonic mucosa with prominent lymphoid aggregate. D. Vermiform appendix, biopsy: Superficial fragments of sessile serrated lesion/polyp; negative for cytologic dysplasia; multiple additional levels examined. E. Colon, transverse, polypectomy: Hyperplastic mucosal polyp. F. Colon, sigmoid, polypectomies (2): Hyperplastic mucosal polyp 12/19/22: Due to the abnormal appearance of appendix on colonoscopy suspicious for mucocele, an urgent CT abd/pel was obtained. This was performed without contrast due to documented allergy. GASTROINTESTINAL TRACT: Constipation. Question wall thickening of the distal colon and rectum and stranding of the surrounding fat. This may represent sterc oral colitis from chronic constipation. Small and large bowel is otherwise normal. Appendix is not seen. There is a small amount of ascites. Pt accompanied by attendant from facility. Appears much more somnolent today and unable to hold a conversation for longer than a few minutes. Med list reviewed - lactulose started just this morning. Continues on rifaximin 550 BID. For variceal prophylaxis, carvedilol 3.125 BID started after EGD. For SSL of appendix, referral requested to surg already. [facility] for appt later today. [facility] Medical History Hyperlipidemia GERD (gastroesophageal reflux disease) Dysphagia Anemia [place] disease Diabetic neuropathy Hypothyroid Borderline personality disorder History of electroconvulsive therapy PTSD (post-traumatic stress disorder) Depression Other seizures Acute kidney failure Bipolar disorder Hammer toe Acute and subacute hepatic failure without coma Presbyopia Cirrhosis of liver Nail dystrophy Tinea manuum, pedis, and unguium Type 2 diabetes mellitus Contracture, right hand Brain injury Surgical History History of esophagogastroduodenoscopy (EGD) Hx of colonoscopy History of lumpectomy Previous back surgery Social History Household Members: Other Household Members Other:: residential Housing: Shelter Do you presently have visiting nurse or other home services: No Unable to assess alcohol history related to: Unknown Alcohol intake: never Patient Tobacco Use Status: Never used Tobacco Advance Directives Date on File: 04/06/21 service: No Current occupational status: disabled Review of Systems Const Unobtainable due to mental status Physical Exam Vital Signs: Last Vital Signs Pulse 70 12/19/22 09:33 BP 98/47 L 12/19/22 09:33 BMI result Body Mass Index 27.8 Gen appear: somnolent, but awakens to verbal stimuli HEENT: nonicteric Chest: CTA CVS: s1, s2 ABd: soft, mildly distended, tympanic to percussion, no tenderness Ext: + peripheral edema Neuro: A/Ox3, asterixis ++ Assessment & Plan Assessment & Plan (1) Cirrhosis of liver: Code(s): K74.60 - Unspecified cirrhosis of liver (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 Has at least grade II hepatic encephalopathy on exam today. Got her first dose of lactulose this morning at the facility based on med list. Would also recommend minimizing sleeping aids such as trazodone. Otherwise, no ascites on exam today. Will work on uptitration of carvedilol. Plan: - Cont lactulose 30 ml 2-3 times a day for goal loose BM 2-3/day - Can DC miralax to help titrate lactulose better - Cont rifaximin 550 BID - Minimize sleep aids, benzos - Cont carvedilol 3.125 BID. Will get BP readings from facility x 7-10 days and titrate up as tolerated. - Next EGD for variceal surveillance in 1 year since unlikely to have much modification of her metabolic factors by then - HCC screening: Next US Abd due now. CT was without contrast and therefore not adequate for HCC screening. 2. SSL of appendix: Mucocele like appearance on colonoscopy with path + for SSL. Seeing surgery later today for discussion of management. 3. Anemia: Improved based most recent labs. Likely in the setting of portal hypertensive changes in esophagus and stomach. Next colo for CRC screening depending on overall clinical course including ? resection of appendiceal SSL. Follow up 4 months Orders: Orders Comprehensive Met. Panel Today K74.60 - Unspecified cirrhosis of liver, R18.8 - Other ascites Complete Blood Count no Diff Today K74.60 - Unspecified cirrhosis of liver, R18.8 - Other ascites Prothrombin Time INR Today K74.60 - Unspecified cirrhosis of liver, R18.8 - Other ascites US abdomen complete Today K74.60 - Unspecified cirrhosis of liver Coding Level of Care Code Est Pt Level 5 (20642) Diagnoses Cirrhosis of liver K74.60 Adenoma of appendix D12.1 Anemia D64.9
[2022-12-19 09:33] VITALS: BP 98/47; PULSE 70; BMI 27.8
== END 2022-12-19 10:06 | disposition home or self-care (01) ==
PROVIDERS: Visit Provider Internal Medicine
DX: K74.60 Unspecified cirrhosis of liver (principal); D12.1 Benign neoplasm of appendix; D64.9 Anemia, unspecified
CPT/HCPCS: 99214

== ENCOUNTER → 2022-12-19 09:20 | Outpatient (BNVA) | payer MEDICARE, MEDICAID, SELFPAY | PROVIDERS: Visit Provider Internal Medicine | DX: K74.60 Unspecified cirrhosis of liver (principal); D46.9 Myelodysplastic syndrome, unspecified; D12.1 Benign neoplasm of appendix | CPT/HCPCS: 99212 ==

== ENCOUNTER 2023-01-10 09:00 | Outpatient (REF) | payer MEDICARE, MEDICAID, SELFPAY ==
--- NOTE | ~2023-01-10 | US_ITS ---
EXAMINATION: US ABDOMEN COMPLETE CLINICAL INFORMATION: Unspecified cirrhosis of liver. COMPARISON: CT abdomen and pelvis 12/05/2022. Ultrasound abdomen complete 10/19/2020. TECHNIQUE: Real-time imaging of the abdominal viscera. Technically difficult study secondary to mobility issues. FINDINGS: PANCREAS: Not well visualized due to bowel gas ABDOMINAL AORTA: Not well visualized due to bowel gas INFERIOR VENA CAVA: Not well visualized due to bowel gas LIVER: Liver echotexture is increased and heterogeneous suggestive of hepatocellular disease. The contour of the liver is slightly irregular suggestive of cirrhosis. No focal hepatic lesion. There is no intrahepatic biliary duct dilatation seen. The main portal vein is patent with appropriate hepatopedal flow. GALLBLADDER: The gallbladder is contracted without evidence of stones, sludge, polyps, or pericholecystic fluid. The patient has recently eaten. COMMON BILE DUCT: Normal in caliber measuring 0.3 cm in diameter. RIGHT KIDNEY: Normal. No hydronephrosis. No renal calculi or focal parenchymal lesions. The kidney measures 9.0 cm in maximum dimension. LEFT KIDNEY: Normal. No hydronephrosis. No renal calculi or focal parenchymal lesions. The kidney measures 10.8 cm in maximum dimension. SPLEEN: The spleen measures 15.1 cm in maximum dimension. The spleen is enlarged. FREE FLUID: Small to moderate US/US abdomen complete IMPRESSION: Cirrhotic-appearing liver. No focal liver lesion seen. Splenomegaly. Small to moderate amount of ascites. Limited visualization of the pancreas, aorta and IVC.
== END 2023-01-10 09:01 | disposition home or self-care (01) ==
LOC: HO.US 09:00
PROVIDERS: Visit Provider Internal Medicine
DX: K74.60 Unspecified cirrhosis of liver (principal)
CPT/HCPCS: 76700

== ENCOUNTER 2023-02-05 13:53 | Outpatient (AMB) | payer MEDICARE, MEDICAID, SELFPAY ==
--- NOTE | 2023-02-05 14:08 | A.OFFVIS_ITS ---
Intake Vital Signs 02/05/23 14:32 Comment WC Intake Visit Reasons: Benign neoplasm of apendix Intake Note: This patient presents for an assessment for benign neoplasm of appendix/ Patient c/o; reports hx of cirrohic liver, reporys RLQ pain, reports high blood sugars; fasting today almost in the 400's. Electromechanisms Design Drafter Required: No Accompanied by: Casework Manager Allergies carrot Allergy (Mild, Verified 02/05/23 14:12) Unknown enoxaparin Allergy (Mild, Verified 02/05/23 14:12) Unknown fondaparinux Allergy (Mild, Verified 02/05/23 14:12) Unknown heparin Allergy (Mild, Verified 02/05/23 14:12) Unknown Iodinated Contrast Media Allergy (Mild, Verified 02/05/23 14:12) Unknown lorazepam [From Ativan] Allergy (Mild, Verified 02/05/23 14:12) Unknown olanzapine Allergy (Mild, Verified 02/05/23 14:12) Unknown perphenazine Allergy (Mild, Verified 02/05/23 14:12) Unknown quetiapine Allergy (Mild, Verified 02/05/23 14:12) Unknown Sulfa (Sulfonamide Antibiotics) Allergy (Mild, Verified 02/05/23 14:12) Unknown beet Allergy (Mild, Uncoded 02/05/23 14:12) Unknown oxycodone Allergy (Mild, Uncoded 02/05/23 14:12) Unknown HPI HPI Comments History of Present Illness Details PATIENT PRESENTS FOR EVALUATION OF A RECENT COLONOSCOPY DEMONSTRATED A SERRATED POLYP OF THE APPENDICEAL ORIFICE. PATIENT HAS A PLETHORA OF MEDICAL PROBLEMS INCLUDING SUMMER ADVANCED CIRRHOSIS, for she gets periodic paracenteses. She has had episodes of encephalopathy secondary to the liver failure as well. Chart was reviewed patient evaluated. [facility] Medical History Hyperlipidemia GERD (gastroesophageal reflux disease) Dysphagia Anemia [place] disease Diabetic neuropathy Hypothyroid Borderline personality disorder History of electroconvulsive therapy PTSD (post-traumatic stress disorder) Depression Other seizures Acute kidney failure Bipolar disorder Hammer toe Acute and subacute hepatic failure without coma Presbyopia Cirrhosis of liver Nail dystrophy Tinea manuum, pedis, and unguium Type 2 diabetes mellitus Contracture, right hand Brain injury Surgical History History of esophagogastroduodenoscopy (EGD) Hx of colonoscopy History of lumpectomy Previous back surgery Social History Household Members: Other Household Members Other:: longterm Housing: Retirement Do you presently have visiting nurse or other home services: No Unable to assess alcohol history related to: Unknown Alcohol intake: never Patient Tobacco Use Status: Never used Tobacco Advance Directives Date on File: 04/06/21 service: No Current occupational status: disabled Physical Exam Const Other: Pleasant wheelchair-bound elderly frail female. Chest Other: Chest breath sounds bilaterally, HS 1 in 2 GI Other: Very protuberant abdomen most likely related to patient's underlying ascites. Modest hepatomegaly. 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 Patient is a prohibitive risk for any kind of general anesthesia secondary to advanced liver disease. In short, I do not think she would tolerate an abdominal procedure combined with the advanced liver disease and ascites would make any such procedure extremely high risk. Ranges were made for 6 month follow-up with the patient's margin trimmer. She will follow-up with me p.r.n.. All questions were answered. Paperwork for facility were also filled out. Coding Level of Care Code New Pt Level 5 (61169) Diagnoses Adenoma of appendix D12.1
== END 2023-02-05 15:08 | disposition home or self-care (01) ==
PROVIDERS: Visit Provider Surgery
DX: D12.1 Benign neoplasm of appendix (principal)
CPT/HCPCS: 99204

== ENCOUNTER → 2023-02-05 13:53 | Outpatient (BNVA) | payer MEDICARE, MEDICAID, SELFPAY | PROVIDERS: Visit Provider Surgery | DX: D12.1 Benign neoplasm of appendix (principal) | CPT/HCPCS: 99202 ==

== ENCOUNTER 2023-04-18 09:46 | Outpatient (AMB) | payer MEDICARE, MEDICAID, SELFPAY ==
[2023-04-18 11:18] VITALS: BP 104/51; PULSE 70
--- NOTE | 2023-04-18 11:18 | A.OFFVIS_ITS ---
Intake Vital Signs 04/18/23 11:18 Height 5 ft 2 in BP 104/51 L Blood Pressure Location Lt brachial Position Sitting Pulse 70 Pulse Source Monitor Intake Visit Reasons: 4 month follow up-Needs Repeat Colonoscopy in July Intake Note: Patient states shes been experiencing diarrhea and constipation on and off. No other GI symptoms at the moment. Medical Education Coordinator Required: No Accompanied by: HANGER OFF Allergies carrot Allergy (Mild, Verified 04/18/23 11:22) Unknown enoxaparin Allergy (Mild, Verified 04/18/23 11:22) Unknown fondaparinux Allergy (Mild, Verified 04/18/23 11:22) Unknown heparin Allergy (Mild, Verified 04/18/23 11:22) Unknown Iodinated Contrast Media Allergy (Mild, Verified 04/18/23 11:22) Unknown lorazepam [From Ativan] Allergy (Mild, Verified 04/18/23 11:22) Unknown olanzapine Allergy (Mild, Verified 04/18/23 11:22) Unknown perphenazine Allergy (Mild, Verified 04/18/23 11:22) Unknown quetiapine Allergy (Mild, Verified 04/18/23 11:22) Unknown Sulfa (Sulfonamide Antibiotics) Allergy (Mild, Verified 04/18/23 11:22) Unknown beet Allergy (Mild, Uncoded 02/05/23 14:12) Unknown oxycodone Allergy (Mild, Uncoded 02/05/23 14:12) Unknown HPI HPI Comments History of Present Illness Details This is a 62 year old female with past medical history pertinent for decompensated liver cirrhosis (hepatic encephalopathy, ascites) likely 2/2 HERNANDEZ who is coming in for follow up. 05/30/22: Pt was last seen by our office in 09/2020 after admission to [facility] for AMS but she lost to follow up. Today, main complaint is abdominal distention which has been present for a few months. Associated with abdominal discomfort and chest pressure. Today also has been having diarrhea had 6 BMs just in the morning. At baseline she goes once a day or every other day with the lactulose. No blood in stool. Appetite is good. Etiology of cirrhosis assumed to be HERNANDEZ. Pt has not seen a southeast regional sales manager in 2 years. Has never had endoscopy for variceal screening. Last US was done in Oct by [facility]. Report not available. Current cirrhosis related meds: lactulose and spironolactone 50. 6/19/23: Labs reviewed. Continues to be anemic, although ferritin not terrible. US abd d one 08/10/22 [facility] and shows trace ascites with no focal liver lesions. Splenomegaly. Main complaint remains abd distention and bloating. Diarrhea better from before but unsure if she is still taking lactulose. No fevers, chills, N,V, change in appetite. Unable to comment on any confusional spells and the aid accompanying the pt today is also unable to corroborate. 09/18/22: Was booked for a follow up today through her facility as there was some miscommunication re booking her procedures. Pt's main concern remains increased abdominal bloating and distention. Reports this also limits her appetite and activity. Moving her bowels and cont to take lactulose. Also on spironolactone 50, although has not had any ascites on US x 2 ([place] [facility] [place] and July [facility] recent labs: 08/14 Na 136 K 4.6 BUN 27 Cr 1.04 11/30/22: EGD/colo: 1. Esophageal varices (banding) 2. Portal hypertensive gastropathy 3. Normal duodenum (biopsy) 4. Abnormal appendix suspicious for muco braulio (biopsy) 5. Normal colon and terminal ileum mucos a 6. Total of 6 polyps removed 7. Large internal and external hemorrhoi ds Path: A. Duodenum, biopsy: Duodenal mucosa within normal limits. B. Colon, descending, polypectomies (2): Hyperplastic mucosal polyps. C. Colon, ascending, polypectomy: Colonic mucosa with prominent lymphoid aggregate. D. Vermiform appendix, biopsy: Superficial fragments of sessile serrated lesion/polyp; negative for cytologic dysplasia; multiple additional levels examined. E. Colon, transverse, polypectomy: Hyperplastic mucosal polyp. F. Colon, sigmoid, polypectomies (2): Hyperplastic mucosal polyp 12/19/22: Due to the abnormal appearance of appendix on colonoscopy suspicious for mucocel e, an urgent CT abd/pel was obtained. This was performed without contrast due to documented allergy. GASTROINTESTINAL TRACT: Constipation. Question wall thickening of the distal colon and rectum and stranding of the surrounding fat. This may represent stercoral colitis from chronic constipation. Small and large bowel is otherwise normal. Appendix is not seen. There is a small amount of ascites. Pt accompanied by attendant from facility. Appears much more somnolent today and unable to hold a conversation for longer than a few minutes. Med list reviewed - lactulose started just this morning. Continues on rifaximin 550 BID. For variceal prophylaxis, carvedilol 3.125 BID started after EGD. For SSL of appendix, referral requested to surg already. [facility] for appt later today. 04/18/23: Here with attendant from her facility. Has been seen by surg and due to her surgical risk, recommended to undergo another colo in 6 months to surveil. Pt otherwise has no sx. Does not report abd discomfort, distention, nausea or vomiting. No unintentional weight loss reported. [facility] Medical History Hyperlipidemia GERD (gastroesophageal reflux disease) Dysphagia Anemia [place] disease Diabetic neuropathy Hypothyroid Borderline personality disorder History of electroconvulsive therapy PTSD (post-traumatic stress disorder) Depression Other seizures Acute kidney failure Bipolar disorder Hammer toe Acute and subacute hepatic failure without coma Presbyopia Cirrhosis of liver Nail dystrophy Tinea manuum, pedis, and unguium Type 2 diabetes mellitus Contracture, right hand Brain injury Surgical History History of esophagogastroduodenoscopy (EGD) Hx of colonoscopy History of lumpectomy Previous back surgery Social History Household Members: Other Household Members Other:: skilled nursing Housing: Prison Do you presently have visiting nurse or other home services: No Unable to assess alcohol history related to: Unknown Alcohol intake: never Patient Tobacco Use Status: Never used Tobacco Advance Directives Date on File: 04/06/21 service: No Current occupational status: disabled Review of Systems Const All systems reviewed & are unremarkable except as noted in HPI and below Physical Exam Vital Signs: Last Vital Signs Pulse 70 04/18/23 11:18 BP 104/51 L 04/18/23 11:18 Gen appear: awake, seated in wheelchair HEENT: nonicteric Chest: CTA CVS: s1, s2 ABd: soft, mildly distended, tympanic to percussion, no tenderness Ext: + peripheral edema Neuro: A/Ox3, asterixis + Assessment & Plan Assessment & Plan (1) Cirrhosis of liver: Code(s): K74.60 - Unspecified cirrhosis of liver (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 Encephalopathy improved from last visit. However has some ascites on exam today - also noted to have some ascites on US in Dec. - Start spironolactone 100mg. Suspect may just need monotherapy will penny, but will monitor labs and weights. - Repeat BMP in 2 weeks - Cont lactulose 30 ml 2-3 times a day for goal loose BM 2-3/day - Can DC miralax to help titrate lactulose better - Cont rifaximin 550 BID - Minimize sleep aids, benzos - Cont carvedilol 3.125 BID. - Next EGD for variceal surveillance in 11/2023 as unlikely to have much modification of her metabolic factors by then - HCC screening: Last US ABd 12/2022 without any focal lesions. Next due in June 2023. 2. SSL of appendix: Mucocele like appearance on colonoscopy with path + for SSL. As per surg recommendations, kate set her up for repeat colo in May, i.e 6 months from prev one. 3. Anemia: Improved based most recent labs. Will recheck CBC and iron studies. Follow up after colo. Orders: Orders Ferritin 04/18/23 D64.9 - Anemia, unspecified, K74.60 - Unspecified cirrhosis of liver, R18.8 - Other ascites Comprehensive Met. Panel 04/18/23 D64.9 - Anemia, unspecified, K74.60 - Unspecified cirrhosis of liver, R18.8 - Other ascites IRON PROFILE 04/18/23 D64.9 - Anemia, unspecified, K74.60 - Unspecified cirrhosis of liver, R18.8 - Other ascites Complete Blood Count no Diff 04/18/23 D64.9 - Anemia, unspecified, K74.60 - Unspecified cirrhosis of liver, R18.8 - Other ascites Prothrombin Time INR 04/18/23 D64.9 - Anemia, unspecified, K74.60 - Unspecified cirrhosis of liver, R18.8 - Other ascites Medications: New spironolactone 100 mg PO DAILY 90 tabs 0RF peg 3350-electrolytes [id number] -5.86 gram (Golytely) as per split prep instructions, until fecal effluent is clear 240 mL PO Q10M 4,000 mL 0RF colonoscopy Coding Level of Care Code Est Pt Level 4 (34306) Diagnoses Cirrhosis of liver K74.60 Adenoma of appendix D12.1 Anemia D64.9
== END 2023-04-18 12:22 | disposition home or self-care (01) ==
PROVIDERS: Visit Provider Internal Medicine
DX: K74.60 Unspecified cirrhosis of liver (principal); D12.1 Benign neoplasm of appendix; D64.9 Anemia, unspecified
CPT/HCPCS: 99214

== ENCOUNTER 2023-04-18 09:46 | Outpatient (REF) | payer MEDICARE, MEDICAID, SELFPAY ==
[2023-04-18 12:46] LABS: Hemoglobin 10.9 g/dl (12.0-16.0); Mean Corpuscular HGB Conc 32.1 g/dl (31.0-35.0); Mean Corpuscular Hemoglobin 30.9 pg (27.0-33.0); Mean Corpuscular Volume 96.3 fL (80.0-98.0); Mean Platelet Volume 11.7 fL (9.4-12.3); Red Blood Count 3.53 X10*6/uL (4.20-5.50); Red Cell Distribution Width 16.1 % (11.0-16.0); White Blood Count 5.9 X10*3/uL (4.8-10.8)
[2023-04-18 12:48] LABS: Platelet Count 87 X10*3/uL (160-400)
[2023-04-18 12:54] LABS: INTERNATIONAL NORM RATIO 1.2 (0.9-1.1); Prothrombin Time 14.3 SEC (11.1-13.3)
[2023-04-18 13:32] LABS: Alanine Aminotransferase 29 U/L (0-31); Albumin Level 3.7 g/dL (3.5-5.0); Alkaline Phosphatase 130 U/L (39-117); Anion Gap 15 (12-20); Aspartate Amino Transferase 28 U/L (5-31); Bilirubin Total 0.9 mg/dL (0.0-1.0); Blood Urea Nitrogen 24 mg/dL (9-16); Calcium 10.1 mg/dL (8.4-10.2); Carbon Dioxide 27 mmol/L (22-29); Chloride 101 mmol/L (96-108); Estimated Glomerular Filt Rate 45; Glucose Random 372 mg/dL (60-115); Iron 87 mcg/dL (30-160); Percent Iron Saturation 29 % (15-50); Potassium 4.6 mmol/L (3.3-5.1); Sodium 138 mmol/L (135-145); Total Iron Binding Capacity 297 mcg/dL (228-428); Total Protein 8.9 g/dL (6.5-8.0); Unsaturated Iron Binding 210 ug/dL
[2023-04-18 13:36] LABS: Ferritin 53 ng/mL (10-250)
== END 2023-04-18 09:47 | disposition home or self-care (01) ==
LOC: HO.LAB 09:46
PROVIDERS: PCP Emergency Medicine; Visit Provider Internal Medicine
DX: D64.9 Anemia, unspecified (principal); K74.60 Unspecified cirrhosis of liver; R18.8 Other ascites; D12.1 Benign neoplasm of appendix
CPT/HCPCS: 36415; 80053; 82728; 83540; 85027; 85610; 99212

== ENCOUNTER 2023-06-28 10:07 | Day surgery (SDC) | payer MEDICARE, MEDICAID, SELFPAY ==
--- NOTE | 2023-06-26 15:05 | P.CONAN_ITS ---
Documented by User: Roselyn Salgado NP 06/26/23 15:09 HPI - Anesthesia Eval Consult details Narrative: 63yo F for Colonoscopy decompensated liver cirrhosis (hepatic encephalopathy, ascites) likely 2/2 [facility] Active Problems Active Problems: All Active Problems Adenoma of appendix (Acute) Peripheral edema (Acute) Anemia (Acute) Cirrhosis of liver with ascites (Acute) Hepatic encephalopathy (Acute) Cirrhosis of liver (Acute) Type 2 diabetes mellitus (Acute) Past Medical History Medical History Hyperlipidemia GERD (gastroesophageal reflux disease) Dysphagia Anemia Vantage disease Diabetic neuropathy Hypothyroid Borderline personality disorder History of electroconvulsive therapy PTSD (post-traumatic stress disorder) Depression Other seizures Acute kidney failure Bipolar disorder Hammer toe Acute and subacute hepatic failure without coma Presbyopia Cirrhosis of liver Nail dystrophy Tinea manuum, pedis, and unguium Type 2 diabetes mellitus Contracture, right hand Brain injury Family History Family history of problems with anesthesia: No Surgical History Surgical History History of esophagogastroduodenoscopy (EGD) Hx of colonoscopy History of lumpectomy Previous back surgery History of Problems with Anesthesia: No Social History Social History Household Members: Other Household Members Other:: retirement Housing: Correction Do you presently have visiting nurse or other home services: No Unable to assess alcohol history related to: Unknown Alcohol intake: never Patient Tobacco Use Status: Never used Tobacco Use of substances other than those prescribed or required for medical reasons: No Are you DNR?: Yes Advance Directives: No Advance Directives Information Provided: Yes Advance Directives Date on File: 04/06/21 service: No Current occupational status: disabled Meds Allergies Allergy/AdvReac Type Severity Reaction Status Date / Time carrot Allergy Mild Unknown Verified 04/18/23 11:22 enoxaparin Allergy Mild Unknown Verified 04/18/23 11:22 fondaparinux Allergy Mild Unknown Verified 04/18/23 11:22 heparin Allergy Mild Unknown Verified 04/18/23 11:22 Iodinated Contrast Media Allergy Mild Unknown Verified 04/18/23 11:22 lorazepam [From Ativan] Allergy Mild Unknown Verified 04/18/23 11:22 olanzapine Allergy Mild Unknown Verified 04/18/23 11:22 perphenazine Allergy Mild Unknown Verified 04/18/23 11:22 quetiapine Allergy Mild Unknown Verified 04/18/23 11:22 Sulfa (Sulfonamide Allergy Mild Unknown Verified 04/18/23 11:22 Antibiotics) beet Allergy Mild Unknown Uncoded 02/05/23 14:12 oxycodone Allergy Mild Unknown Uncoded 02/05/23 14:12 Home Medications ?Medication ?Instructions ?Recorded ?Confirmed ?Last Taken ?Type baclofen 10 mg tablet 10 mg PO TID@0900,1300,1700 09/27/20 06/28/23 06/28/23 History atorvastatin 20 mg tablet 20 mg PO DAILY 04/06/21 11/29/22 04/05/21 History famotidine 20 mg tablet 20 mg PO DAILY 04/06/21 06/28/23 06/28/23 History bisacodyl 10 mg rectal suppository 10 mg AK DAILY PRN Constipation 05/30/22 11/29/22 Unknown History clonazepam 0.5 mg tablet 0.5 mg PO BID PRN Anxiety 05/30/22 11/29/22 Unknown History cranberry 400 mg capsule 400 mg PO DAILY 05/30/22 11/29/22 Unknown History insulin aspart U-100 100 unit/mL 1 sliding scale dose subcut 05/30/22 11/29/22 Unknown History (3 mL) subcutaneous pen (Novolog USEASDIRECTD FlexPen U-100 Insulin aspart) magnesium hydroxide 400 mg/5 mL 30 ml PO DAILY PRN Diarrhea 05/30/22 11/29/22 Unknown History oral suspension (Milk of Magnesia) mecobalamin (vitamin B12) 1,000 1,000 mcg PO DAILY 05/30/22 11/29/22 Unknown History mcg lozenges metformin 1,000 mg tablet 1,000 mg PO BID 05/30/22 11/29/22 Unknown History sodium phosphates 19 gram-7 118 ml AK BEDTIME PRN Constipation 05/30/22 11/29/22 Unknown History gram/118 mL enema (Pure and Gentle (saline)) triamcinolone acetonide 0.1 % 1 appl topical BID-TID 05/30/22 11/29/22 Unknown History topical cream ferrous sulfate 325 mg (65 mg 325 mg PO DAILY 11/29/22 11/29/22 Unknown History iron) tablet lactulose 20 gram/30 mL oral 20 g PO BID 11/29/22 11/29/22 Unknown History solution lidocaine 4 % topical patch 1 patch topical DAILY 11/29/22 11/29/22 Unknown History (Lidocaine Pain Relief) sertraline 100 mg tablet 100 mg PO DAILY 11/29/22 06/28/23 06/28/23 History levothyroxine 125 mcg tablet 150 mcg PO DAILY 12/19/22 06/28/23 06/28/23 History acetaminophen 325 mg tablet 650 mg PO Q6H PRN 02/05/23 Unknown History diazepam 5 mg/mL injection syringe 1 mg IM ONCE PRN 02/05/23 Unknown History glucagon 1 mg/0.2 mL subcutaneous 1 mg subcut Q20M PRN 02/05/23 Unknown History syringe ([employer] PFS 2-Pack) guaifenesin 600 mg tablet, 600 mg PO Q12H PRN 02/05/23 Unknown History extended release 12 hr (Mucinex) hydrocortisone 5 mg tablet 10 mg PO DAILY 02/05/23 Unknown History insulin glargine 100 unit/mL 80 unit subcut QAM 02/05/23 06/26/23 Unknown History subcutaneous solution (Lantus U-100 Insulin) insulin lispro 100 unit/mL 10 unit subcut USEASDIRECTD 02/05/23 Unknown History subcutaneous pen (Humalog KwikPen (U-100) Insulin) naloxone 0.4 mg/mL injection 0.4 mg IM Q2M PRN 02/05/23 Unknown History syringe naloxone 4 mg/actuation nasal 1 spray intranasal Q2M 02/05/23 Unknown History spray (Narcan) pregabalin 25 mg capsule (Lyrica) 25 mg PO TID 02/05/23 06/28/23 06/28/23 History sodium phosphates 19 gram-7 118 ml AK DAILY PRN 02/05/23 Unknown History gram/118 mL enema (Fleet Enema) tramadol 50 mg tablet 50 mg PO Q12H PRN 02/05/23 Unknown History valacyclovir 500 mg tablet 500 mg PO BID PRN 02/05/23 Unknown History aripiprazole 10 mg tablet 10 mg PO DAILY 04/18/23 06/28/23 06/28/23 History rifaximin 550 mg tablet (Xifaxan) 550 mg PO BID 04/18/23 Unknown History sertraline 25 mg tablet 50 mg PO DAILY 04/18/23 06/28/23 06/28/23 History trazodone 100 mg tablet 100 mg PO BEDTIME 04/18/23 Unknown History Exam Height,Weight and Vital Signs: Height 5 ft 2 in Pertinent Lab Results Pertinent Lab Results: Laboratory Tests 04/18/23 12:24 WBC 5.9 Hgb 10.9 L Hct 34.0 L Plt Count 87 L Sodium 138 Potassium 4.6 Chloride 101 Carbon Dioxide 27 BUN 24 H Creatinine 1.20 Narrative Narrative: ECHO 08/2022 Conclusions: - 1. Technically limited study due to off axis views. 2. Normal LV ejection fraction at 55-60% with grade 1 diastolic dysfunction 3. Cardiac valvular Doppler within normal limits 4. No gross pericardial effusion US abdomen complete 12/2022 IMPRESSION: Cirrhotic-appearing liver. No focal liver lesion seen. Splenomegaly. Small to moderate amount of ascites. Limited visualization of the pancreas, aorta and IVC. Assessment and Plan Assessment Anesthesia Assessment: Chart Reviewed Final Anesthetic Review Family History of Problems with Anesthesia: No History of Problems with Anesthesia: No Documented by User: Kayla Garduno MD 06/28/23 12:12 [facility] Past Medical History Medical History Hyperlipidemia GERD (gastroesophageal reflux disease) Dysphagia Anemia Carlos disease Diabetic neuropathy Hypothyroid Borderline personality disorder History of electroconvulsive therapy PTSD (post-traumatic stress disorder) Depression Other seizures Acute kidney failure Bipolar disorder Hammer toe Acute and subacute hepatic failure without coma Presbyopia Cirrhosis of liver Nail dystrophy Tinea manuum, pedis, and unguium Type 2 diabetes mellitus Contracture, right hand Brain injury Surgical History Surgical History History of esophagogastroduodenoscopy (EGD) Hx of colonoscopy History of lumpectomy Previous back surgery Social History Social History Household Members: Other Household Members Other:: retirement Housing: Correction Do you presently have visiting nurse or other home services: No Unable to assess alcohol history related to: Unknown Alcohol intake: never Patient Tobacco Use Status: Never used Tobacco Use of substances other than those prescribed or required for medical reasons: No Are you DNR?: Yes Advance Directives: No Advance Directives Information Provided: Yes Advance Directives Date on File: 04/06/21 service: No Current occupational status: disabled Meds Allergies Allergy/AdvReac Type Severity Reaction Status Date / Time carrot Allergy Mild Unknown Verified 04/18/23 11:22 enoxaparin Allergy Mild Unknown Verified 04/18/23 11:22 fondaparinux Allergy Mild Unknown Verified 04/18/23 11:22 heparin Allergy Mild Unknown Verified 04/18/23 11:22 Iodinated Contrast Media Allergy Mild Unknown Verified 04/18/23 11:22 lorazepam [From Ativan] Allergy Mild Unknown Verified 04/18/23 11:22 olanzapine Allergy Mild Unknown Verified 04/18/23 11:22 perphenazine Allergy Mild Unknown Verified 04/18/23 11:22 quetiapine Allergy Mild Unknown Verified 04/18/23 11:22 Sulfa (Sulfonamide Allergy Mild Unknown Verified 04/18/23 11:22 Antibiotics) beet Allergy Mild Unknown Uncoded 02/05/23 14:12 oxycodone Allergy Mild Unknown Uncoded 02/05/23 14:12 Home Medications ?Medication ?Instructions ?Recorded ?Confirmed ?Last Taken ?Type baclofen 10 mg tablet 10 mg PO TID@0900,1300,1700 09/27/20 06/28/23 06/28/23 History atorvastatin 20 mg tablet 20 mg PO DAILY 04/06/21 11/29/22 04/05/21 History famotidine 20 mg tablet 20 mg PO DAILY 04/06/21 06/28/23 06/28/23 History bisacodyl 10 mg rectal suppository 10 mg AK DAILY PRN Constipation 05/30/22 11/29/22 Unknown History clonazepam 0.5 mg tablet 0.5 mg PO BID PRN Anxiety 05/30/22 11/29/22 Unknown History cranberry 400 mg capsule 400 mg PO DAILY 05/30/22 11/29/22 Unknown History insulin aspart U-100 100 unit/mL 1 sliding scale dose subcut 05/30/22 11/29/22 Unknown History (3 mL) subcutaneous pen (Novolog USEASDIRECTD FlexPen U-100 Insulin aspart) magnesium hydroxide 400 mg/5 mL 30 ml PO DAILY PRN Diarrhea 05/30/22 11/29/22 Unknown History oral suspension (Milk of Magnesia) mecobalamin (vitamin B12) 1,000 1,000 mcg PO DAILY 05/30/22 11/29/22 Unknown History mcg lozenges metformin 1,000 mg tablet 1,000 mg PO BID 05/30/22 11/29/22 Unknown History sodium phosphates 19 gram-7 118 ml AK BEDTIME PRN Constipation 05/30/22 11/29/22 Unknown History gram/118 mL enema (Pure and Gentle (saline)) triamcinolone acetonide 0.1 % 1 appl topical BID-TID 05/30/22 11/29/22 Unknown History topical cream ferrous sulfate 325 mg (65 mg 325 mg PO DAILY 11/29/22 11/29/22 Unknown History iron) tablet lactulose 20 gram/30 mL oral 20 g PO BID 11/29/22 11/29/22 Unknown History solution lidocaine 4 % topical patch 1 patch topical DAILY 11/29/22 11/29/22 Unknown History (Lidocaine Pain Relief) sertraline 100 mg tablet 100 mg PO DAILY 11/29/22 06/28/23 06/28/23 History levothyroxine 125 mcg tablet 150 mcg PO DAILY 12/19/22 06/28/23 06/28/23 History acetaminophen 325 mg tablet 650 mg PO Q6H PRN 02/05/23 Unknown History diazepam 5 mg/mL injection syringe 1 mg IM ONCE PRN 02/05/23 Unknown History glucagon 1 mg/0.2 mL subcutaneous 1 mg subcut Q20M PRN 02/05/23 Unknown History syringe ([employer] PFS 2-Pack) guaifenesin 600 mg tablet, 600 mg PO Q12H PRN 02/05/23 Unknown History extended release 12 hr (Mucinex) hydrocortisone 5 mg tablet 10 mg PO DAILY 02/05/23 Unknown History insulin glargine 100 unit/mL 80 unit subcut QAM 02/05/23 06/26/23 Unknown History subcutaneous solution (Lantus U-100 Insulin) insulin lispro 100 unit/mL 10 unit subcut USEASDIRECTD 02/05/23 Unknown History subcutaneous pen (Humalog KwikPen (U-100) Insulin) naloxone 0.4 mg/mL injection 0.4 mg IM Q2M PRN 02/05/23 Unknown History syringe naloxone 4 mg/actuation nasal 1 spray intranasal Q2M 02/05/23 Unknown History spray (Narcan) pregabalin 25 mg capsule (Lyrica) 25 mg PO TID 02/05/23 06/28/23 06/28/23 History sodium phosphates 19 gram-7 118 ml AK DAILY PRN 02/05/23 Unknown History gram/118 mL enema (Fleet Enema) tramadol 50 mg tablet 50 mg PO Q12H PRN 02/05/23 Unknown History valacyclovir 500 mg tablet 500 mg PO BID PRN 02/05/23 Unknown History aripiprazole 10 mg tablet 10 mg PO DAILY 04/18/23 06/28/23 06/28/23 History rifaximin 550 mg tablet (Xifaxan) 550 mg PO BID 04/18/23 Unknown History sertraline 25 mg tablet 50 mg PO DAILY 04/18/23 06/28/23 06/28/23 History trazodone 100 mg tablet 100 mg PO BEDTIME 04/18/23 Unknown History Exam Airway Mallampati Class: III TM Dist: >3cm Neck ROM: Limited Loose/Missing/Broken Teeth: Yes, Upper and Lower Heart: RRR Lungs: CTA Assessment and Plan Assessment Anesthesia Assessment: Anesthesia Plan Discussed Final Anesthetic Review NPO: Yes ASA Class: IV Final Preanesthetic Review: Meds/Allgs Chart Reviewed, Consent Obtained/Reviewed and Anes Risks/Benef Reviewed Patient Risk: High Procedure Risk: Low Anesthetic Plan Anesthetic Plan: MAC: Disposition: Standard PACU
[2023-06-28 10:28] VITALS: BMI 28.5
[2023-06-28 10:54] VITALS: BP 106/58; PULSE 72; RESP 18; TEMP 36.4; O2SAT 94
[2023-06-28] MEDS: Lactated Ringers 1,000 ML 100 ML IVCONT (11:00)
[2023-06-28 11:06] LABS: Glucose, Whole Blood 167 mg/dL (60-115)
--- NOTE | 2023-06-28 11:10 | MHC.SHP ---
Pre-Procedural Eval Section A - 24 Hr Update-Section A only Date of Service: 06/28/23 Section B - Complete if H&P > 30 days Chief Complaint: SSL of appendix Details of Present Illness: PPMH: Acute and subacute hepatic failure without coma Bipolar disorder Brain injury Cirrhosis of liver Contracture, right hand Hammer toe Nail dystrophy Other seizures Presbyopia Tinea manuum, pedis, and unguium Type 2 diabetes mellitus Surgical History History of lumpectomy Hx of colonoscopy Previous back surgery Present Medications: see Short Stay Collaborative assessment Allergies: Allergies Allergy/AdvReac Type Severity Reaction Status Date / Time carrot Allergy Mild Unknown Verified 04/18/23 11:22 enoxaparin Allergy Mild Unknown Verified 04/18/23 11:22 fondaparinux Allergy Mild Unknown Verified 04/18/23 11:22 heparin Allergy Mild Unknown Verified 04/18/23 11:22 Iodinated Contrast Media Allergy Mild Unknown Verified 04/18/23 11:22 lorazepam [From Ativan] Allergy Mild Unknown Verified 04/18/23 11:22 olanzapine Allergy Mild Unknown Verified 04/18/23 11:22 perphenazine Allergy Mild Unknown Verified 04/18/23 11:22 quetiapine Allergy Mild Unknown Verified 04/18/23 11:22 Sulfa (Sulfonamide Allergy Mild Unknown Verified 04/18/23 11:22 Antibiotics) beet Allergy Mild Unknown Uncoded 02/05/23 14:12 oxycodone Allergy Mild Unknown Uncoded 02/05/23 14:12 Review of Systems Review of Systems Comment: Ten point ROS negative Exam Exam Comment: Gen appear: No acute distress HEENT: no icterus Chest: No overt resp distress Abd: soft, nontender, nondistended Psych: Stable affect, answering questions appropriately Neuro: A/Ox3, contracted RUE but moves all extremities Ext: no peripheral edema Plan Diagnosis/Plan: Unchanged I have reviewed the history and physical and performed a pertinent physical examination on my patient. No changes have occurred unless specified. Time Spent With Patient Time: Total time managing care of this patient today ____ minutes.
[2023-06-28 12:50] VITALS: BP 107/56; PULSE 74; RESP 16; TEMP 36.6; O2SAT 94
--- NOTE | 2023-06-28 12:58 | P.OP_ITS ---
Operative Note Operative Note Date of Service: 06/28/23 Narrative: Procedure:?Colonoscopy Endoscopist:?Gracia Pinzon MD Indication:?Appendiceal mucocele Anesthesia Provider:?Ashley Cardoza CRNA Anesthesia Type:?MAC Instrument:?[id number] Colonoscopy Procedure:? The procedure, indications, preparation and potential complications were reviewed with the patient who indicated understanding and gave written informed consent to proceed. A physical exam was performed. The patient was placed on her left lateral side. A digital rectal exam was performed which was abnormal for external hemorrhoids.? A distal attachment cap was affixed to the tip of the scope and the colonoscope was then inserted through the anus and advanced through the colon to the cecum at 75 cm and terminal ileum. Appendiceal orifice and ileocecal valve were identified. Mucosa was carefully examined under high definition white light as the instrument was slowly withdrawn in a retrograde panoramic fashion. Retroflexion was performed in rectum. The procedure was moderately difficult due to redundant colon and looping in the transverse colon. There were no immediate obvious complications. The quality of the prep was BBPS: 2+2+2 = adequate Withdrawal time: minutes Limitations: No limitation. Findings: Mucosa: Previously seen mucocele was again noted today. This was protruding into the cecum with adherent whitish mucus cap. Cold forceps biopsies were taken for histology. Remaining mucosa to cecum and terminal ileum was normal. Protruding lesions: * 1 sessile polyp of size 2 mm was noted in transverse colon. Cold forceps polypectomy was performed. The polyp was completely removed and retrieved. * Large internal hemorrhoids without stigmata of recent bleeding. Excavated lesions: * Scattered diverticulosis of sigmoid colon was noted. Impression: * Mucocele (biopsy) * 1 polyp removed * Diverticulosis * Large internal and external hemorrhoids Recommendations:?? * Await pathology results. * Follow up with surgery for further management
[2023-06-28 13:05] VITALS: BP 113/74; PULSE 79; RESP 18; TEMP 36.6; O2SAT 94
== END 2023-06-28 14:16 | disposition home or self-care (01) ==
PROVIDERS: PCP Emergency Medicine; Visit Provider Internal Medicine
PROC: 0DJD8ZZ Inspection of Lower Intestinal Tract, Via Natural or Artificial Opening Endoscopic (ICD-10-PCS; CPT 45378; principal; 2023-06-28 12:10)
DX: K38.8 Other specified diseases of appendix (principal); K63.5 Polyp of colon; K57.30 Diverticulosis of large intestine without perforation or abscess without bleeding; K64.8 Other hemorrhoids; E11.9 Type 2 diabetes mellitus without complications
CPT/HCPCS: 45380; 82947; 88304; 88305; J2704

== ENCOUNTER → 2023-06-28 10:07 | Outpatient (BNV) | payer MEDICARE, MEDICAID, SELFPAY | PROVIDERS: PCP Emergency Medicine; Visit Provider Internal Medicine | DX: K38.8 Other specified diseases of appendix (principal); K63.5 Polyp of colon; K64.8 Other hemorrhoids; K57.30 Diverticulosis of large intestine without perforation or abscess without bleeding | CPT/HCPCS: 45380 ==

== ENCOUNTER → 2023-07-11 11:18 | Outpatient (BNVA) | payer MEDICARE, MEDICAID, SELFPAY | PROVIDERS: PCP Emergency Medicine; Visit Provider Internal Medicine ==

== ENCOUNTER 2023-07-12 08:07 | Outpatient (REF) | payer MEDICARE, MEDICAID, SELFPAY ==
--- NOTE | ~2023-07-12 | US_ITS ---
EXAMINATION: US ABDOMEN COMPLETE CLINICAL INFORMATION: Cirrhosis. COMPARISON: Ultrasound abdomen 01/10/[address] abdomen and pelvis 12/05/2022. TECHNIQUE: Real-time imaging of the abdominal viscera. FINDINGS: PANCREAS: The pancreas appears unremarkable, without masses or ductal dilatation, with the exception of the tail which is obscured by bowel gas. ABDOMINAL AORTA: The proximal, mid, and distal segments are normal in caliber. INFERIOR VENA CAVA: Visualized portions are normal. LIVER: The liver is normal in size. Liver contour is slightly irregular. Parenchymal echogenicity is heterogeneous and mildly increased. No focal hepatic lesion. There is no intrahepatic biliary duct dilatation seen. Main portal vein demonstrates hepatopetal flow. GALLBLADDER: The gallbladder is physiologically distended without evidence of stones, sludge, polyps, wall thickening or pericholecystic fluid. COMMON BILE DUCT: Normal in caliber measuring 0.4 cm in diameter. RIGHT KIDNEY: No hydronephrosis. No renal calculi or focal parenchymal lesions. The kidney measures 9.2 cm in maximum dimension. LEFT KIDNEY: No hydronephrosis. No renal calculi or focal parenchymal lesions. The kidney measures 10.3 cm in maximum dimension. SPLEEN: Spleen is enlarged measuring 14.3 cm in maximum dimension. FREE FLUID: A small amount of free fluid is present. US/US abdomen complete IMPRESSION: Cirrhotic-appearing liver with splenomegaly and a small amount of ascites.
== END 2023-07-12 08:08 | disposition home or self-care (01) ==
LOC: HO.US 08:07
PROVIDERS: PCP Emergency Medicine; Visit Provider Internal Medicine
DX: K74.60 Unspecified cirrhosis of liver (principal)
CPT/HCPCS: 76700

== ENCOUNTER 2023-07-24 09:35 | Outpatient (AMB) | payer MEDICARE, MEDICAID, SELFPAY ==
--- NOTE | 2023-07-24 09:48 | A.OFFVIS_ITS ---
Vital Signs 07/24/23 09:55 Height 5 ft 2 in BP 108/53 L Blood Pressure Location Lt brachial Position Sitting Pulse 84 Intake Visit Reasons: Growth on appendix Intake Note: Patient referred by Dr. Pinzon for concerning appendix mass noted w/colonoscopy procedure. Patient c/o: denies nausea, pain. ABD US: 07-12-23. 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 Required: No Accompanied by: Jenny from [facility] Allergies carrot Allergy (Mild, Verified 07/24/23 09:55) Unknown enoxaparin Allergy (Mild, Verified 07/24/23 09:55) Unknown fondaparinux Allergy (Mild, Verified 07/24/23 09:55) Unknown heparin Allergy (Mild, Verified 07/24/23 09:55) Unknown Iodinated Contrast Media Allergy (Mild, Verified 07/24/23 09:55) Unknown lorazepam [From Ativan] Allergy (Mild, Verified 07/24/23 09:55) Unknown olanzapine Allergy (Mild, Verified 07/24/23 09:55) Unknown perphenazine Allergy (Mild, Verified 07/24/23 09:55) Unknown quetiapine Allergy (Mild, Verified 07/24/23 09:55) Unknown Sulfa (Sulfonamide Antibiotics) Allergy (Mild, Verified 07/24/23 09:55) Unknown beet Allergy (Mild, Uncoded 07/24/23 09:55) Unknown oxycodone Allergy (Mild, Uncoded 07/24/23 09:55) Unknown HPI Comments Details: Patient presents for follow-up status post recent colonoscopy demonstrating increased in size of her appendiceal adenoma. Patient herself has no GI issues or complaints. She has very advanced cirrhosis. She lives in an extended care facility. I discussed at length with the patient that she has a very high operative risk being a Child's B/C which includes her history of encephalopathy, ascites, and elevated liver function tests and INR. [facility] Medical History Hyperlipidemia GERD (gastroesophageal reflux disease) Dysphagia Anemia Carlos disease Diabetic neuropathy Hypothyroid Borderline personality disorder History of electroconvulsive therapy PTSD (post-traumatic stress disorder) Depression Other seizures Acute kidney failure Bipolar disorder Hammer toe Acute and subacute hepatic failure without coma Presbyopia Cirrhosis of liver Nail dystrophy Tinea manuum, pedis, and unguium Type 2 diabetes mellitus Contracture, right hand Brain injury Surgical History History of esophagogastroduodenoscopy (EGD) Hx of colonoscopy History of lumpectomy Previous back surgery Social History Household Members: Other Household Members Other:: alf Housing: [facility] Do you presently have visiting nurse or other home services: No Unable to assess alcohol history related to: Unknown Alcohol intake: never Patient Tobacco Use Status: Never used Tobacco Advance Directives Date on File: 04/06/21 service: No Current occupational status: disabled Physical Exam Vital Signs: Last Vital Signs Pulse 84 07/24/23 09:55 BP 108/53 L 07/24/23 09:55 GI Other: Markedly distended, corpulent, nontender Assessment & Plan Assessment & Plan (1) Adenoma of appendix: Code(s): D12.1 - Benign neoplasm of appendix Category: Surgical (2) Cirrhosis of liver with ascites: Code(s): K74.60 - Unspecified cirrhosis of liver; R18.8 - Other ascites Category: Surgical (3) Hepatic encephalopathy: Code(s): K72.90 - Hepatic failure, unspecified without coma Category: Surgical Plan Reviewed the case with Dr. Negro. Patient is a prohibitive risk for surgery at this facility. I will contact either [facility] see if any of them is willing to take on the case. This was explained to the patient. She understands and will think about what her options are. Coding Level of Care Code New Pt Level 4 (23667) Diagnoses Adenoma of appendix D12.1 Cirrhosis of liver with ascites K74.60; R18.8 Hepatic encephalopathy K72.90
[2023-07-24 09:55] VITALS: BP 108/53; PULSE 84
== END 2023-07-24 10:38 | disposition home or self-care (01) ==
PROVIDERS: PCP Emergency Medicine; Referring Provider Internal Medicine; Visit Provider Surgery
DX: D12.1 Benign neoplasm of appendix (principal); K74.60 Unspecified cirrhosis of liver; R18.8 Other ascites; K72.90 Hepatic failure, unspecified without coma
CPT/HCPCS: 99214

== ENCOUNTER → 2023-07-24 09:35 | Outpatient (BNVA) | payer MEDICARE, MEDICAID, SELFPAY | PROVIDERS: PCP Emergency Medicine; Referring Provider Internal Medicine; Visit Provider Surgery | DX: D12.1 Benign neoplasm of appendix (principal); K74.60 Unspecified cirrhosis of liver; R18.8 Other ascites; K72.90 Hepatic failure, unspecified without coma | CPT/HCPCS: 99212 ==

== ENCOUNTER 2023-12-12 13:32 | Outpatient (AMB) | payer MEDICARE, MEDICAID, SELFPAY ==
--- NOTE | 2023-12-12 13:45 | MHC.OFFVIS ---
Vital Signs 12/12/23 13:51 Height 5 ft 2 in BP 97/49 L Blood Pressure Location Lt brachial Position Sitting Pulse 72 Intake Visit Reasons: abdominal distension Intake Note: Christina presents in the office as a follow up for abdominal distension. CC: Staff Developer Required: No Allergies carrot Allergy (Mild, Verified 03/12/24 09:58) Unknown enoxaparin Allergy (Mild, Verified 03/12/24 09:58) Unknown fondaparinux Allergy (Mild, Verified 03/12/24 09:58) Unknown heparin Allergy (Mild, Verified 03/12/24 09:58) Unknown Iodinated Contrast Media Allergy (Mild, Verified 03/12/24 09:58) Unknown lorazepam [From Ativan] Allergy (Mild, Verified 03/12/24 09:58) Unknown olanzapine Allergy (Mild, Verified 03/12/24 09:58) Unknown perphenazine Allergy (Mild, Verified 03/12/24 09:58) Unknown quetiapine Allergy (Mild, Verified 03/12/24 09:58) Unknown Sulfa (Sulfonamide Antibiotics) Allergy (Mild, Verified 03/12/24 09:58) Unknown beet Allergy (Mild, Uncoded 03/12/24 09:58) Unknown oxycodone Allergy (Mild, Uncoded 03/12/24 09:58) Unknown HPI Comments Details: This is a 62 year old female with past medical history pertinent for decompensated liver cirrhosis (hepatic encephalopathy, ascites) likely 2/2 HERNANDEZ who is coming in for follow up. 05/30/22: Pt was last seen by our office in 09/2020 after admission to [facility] in [place] for AMS but she lost to follow up. Today, main complaint is abdominal distention which has been present for a few months. Associated with abdominal discomfort and chest pressure. Today also has been having diarrhea had 6 BMs just in the morning. At baseline she goes once a day or every other day with the lactulose. No blood in stool. Appetite is good. Etiology of cirrhosis assumed to be HERNANDEZ. Pt has not seen a disc recordist in 2 years. Has never had endoscopy for variceal screening. Last US was done in Oct by [facility]. Report not available. Current cirrhosis related meds: lactulose and spironolactone 50. 08/14/22: Labs reviewed. Continues to be anemic, although ferritin not terrible. US abd done 08/10/22 through [facility] and shows trace ascites with no focal liver lesions. Splenomegaly. Main complaint remains abd distention and bloating. Diarrhea better from before but unsure if she is still taking lactulose. No fevers, chills, N,V, change in appetite. Unable to comment on any confusional spells and the aid accompanying the pt today is also unable to corroborate. 09/18/22: Was booked for a follow up today through her facility as there was some miscommunication re booking her procedures. Pt's main concern remains increased abdominal bloating and distention. Reports this also limits her appetite and activity. Moving her bowels and cont to take lactulose. Also on spironolactone 50, although has not had any ascites on US x 2 (May [facility], and July [facility]). recent labs: 08/14 Na 136 K 4.6 BUN 27 Cr 1.04 11/30/22: EGD/colo: 1. Esophageal varices (banding) 2. Portal hypertensive gastropathy 3. Normal duodenum (biopsy) 4. Abnormal appendix suspicious for mucocele (biopsy) 5. Normal colon and terminal ileum mucosa 6. Total of 6 polyps removed 7. Large internal and external hemorrhoids Path: A. Duodenum, biopsy: Duodenal mucosa within normal limits. B. Colon, descending, polypectomies (2): Hyperplastic mucosal polyps. C. Colon, ascending, polypectomy: Colonic mucosa with prominent lymphoid aggregate. D. Vermiform appendix, biopsy: Superficial fragments of sessile serrated lesion/polyp; negative for cytologic dysplasia; multiple additional levels examined. E. Colon, transverse, polypectomy: Hyperplastic mucosal polyp. F. Colon, sigmoid, polypectomies (2): Hyperplastic mucosal polyp 12/19/22: Due to the abnormal appearance of appendix on colonoscopy suspicious for mucocele, an urgent CT abd/pel was obtained. This was performed without contrast due to documented allergy. GASTROINTESTINAL TRACT: Constipation. Question wall thickening of the distal colon and rectum and stranding of the surrounding fat. This may represent stercoral colitis from chronic constipation. Small and large bowel is otherwise normal. Appendix is not seen. There is a small amount of ascites. Pt accompanied by attendant from facility. Appears much more somnolent today and unable to hold a conversation for longer than a few minutes. Med list reviewed - lactulose started just this morning. Continues on rifaximin 550 BID. For variceal prophylaxis, carvedilol 3.125 BID started after EGD. For SSL of appendix, referral requested to surg already. Martha for appt later today. 04/18/23: Here with attendant from her facility. Has been seen by surg and due to her surgical risk, recommended to undergo another colo in 6 months to surveil. Pt otherwise has no sx. Does not report abd discomfort, distention, nausea or vomiting. No unintentional weight loss reported. 06/28/23: Mucocele (biopsy) 1 polyp removed Diverticulosis Large internal and external hemorrhoids Path: A. Vermiform appendix, biopsy: - Fragments of sessile serrated lesion/polyp. - Mucin, degenerated epithelial cells and luminal debris; multiple additional levels examined; see comment. B. Colon, transverse, polypectomy: Colonic mucosa with prominent lymphoid aggregate and mild surface hyperplastic changes; multiple additional levels examined. Comment (A): The patient's appendiceal mass protruding into the cecum is noted. An unsampled more worrisome lesion cannot be ruled out. 07/11/23: Booked as a televisit due to transport issues today. Results reviewed of the colo with the pt. Mucocele has previously discussed. Has an appt with surgery on 07/23 to review indication for surgery. US [facility] for tmrw for HCC screening and ascites check. Otherwise no GI issues at present. 12/12/23: Here for follow up. Seen by [facility] surgery and referred to [facility] surgery due to high risk due to underlying cirrhosis. Was seen by Dr. Juan Pablo Sanchez 08/13/2023 with plan for follow-up colonoscopy in 3-6 months. This will be scheduled today. In terms of cirrhosis, due for US ABd for HCC screening. Otherwise, ascites well controlled. Intermittent HE persistent, mild. Taking lactulose and rifaximin. [facility] Medical History Hyperlipidemia GERD (gastroesophageal reflux disease) Dysphagia Anemia [place] disease Diabetic neuropathy Hypothyroid Borderline personality disorder History of electroconvulsive therapy PTSD (post-traumatic stress disorder) Depression Other seizures Acute kidney failure Bipolar disorder Hammer toe Acute and subacute hepatic failure without coma Presbyopia Cirrhosis of liver Nail dystrophy Tinea manuum, pedis, and unguium Type 2 diabetes mellitus Contracture, right hand Brain injury Surgical History History of esophagogastroduodenoscopy (EGD) Hx of colonoscopy History of lumpectomy Previous back surgery Social History Household Members: Other Household Members Other:: intermediate Housing: Prison Do you presently have visiting nurse or other home services: No Unable to assess alcohol history related to: Unknown Alcohol intake: never Patient Tobacco Use Status: Never used Tobacco Advance Directives Date on File: 04/06/21 service: No Current occupational status: disabled Review of Systems Const All systems reviewed & are unremarkable except as noted in HPI and below Physical Exam Vital Signs: Last Vital Signs Pulse 72 12/12/23 13:51 BP 97/49 L 12/12/23 13:51 Gen appear: awake, laying in EMS stretcher HEENT: nonicteric Chest: CTA CVS: s1, s2 ABd: soft, mildly distended, tympanic to percussion, no tenderness Ext: + peripheral edema Neuro: A/Ox3, no asterixis Assessment & Plan Assessment & Plan (1) Adenoma of appendix: Code(s): D12.1 - Benign neoplasm of appendix Category: Surgical (2) Cirrhosis of liver: Code(s): K74.60 - Unspecified cirrhosis of liver Category: Medical Plan 1. SSL of appendix: Mucocele like appearance on colonoscopy with path + for SSL. Will send msg to book repeat colo in 3 months as per recommendation from [facility] colorectal ca. 2. 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 No ascites or HE on exam today. Due for HCC screening. - Cont spironolactone 100mg. - Cont lactulose 30 ml 2-3 times a day for goal loose BM 2-3/day - Cont rifaximin 550 BID - Minimize sleep aids, benzos - Cont carvedilol 3.125 BID. - HCC screening: US abd ordered Follow up after colo Orders: Orders US abdomen complete 12/12/23 K74.60 - Unspecified cirrhosis of liver Coding Level of Care Code Est Pt Level 4 (46803) Diagnoses Adenoma of appendix D12.1 Cirrhosis of liver K74.60
[2023-12-12 13:51] VITALS: BP 97/49; PULSE 72
== END 2023-12-12 14:52 | disposition home or self-care (01) ==
PROVIDERS: PCP Emergency Medicine; Visit Provider Internal Medicine
DX: D12.1 Benign neoplasm of appendix (principal); K74.60 Unspecified cirrhosis of liver
CPT/HCPCS: 99214

== ENCOUNTER → 2023-12-12 13:32 | Outpatient (BNVA) | payer MEDICARE, MEDICAID, SELFPAY | PROVIDERS: PCP Emergency Medicine; Visit Provider Internal Medicine | DX: D12.1 Benign neoplasm of appendix (principal); K74.60 Unspecified cirrhosis of liver | CPT/HCPCS: 99212 ==

== ENCOUNTER 2023-12-21 07:50 | Outpatient (REF) | payer MEDICARE, MEDICAID, SELFPAY ==
--- NOTE | ~2023-12-21 | US_ITS ---
EXAMINATION: US ABDOMEN COMPLETE CLINICAL INFORMATION: Unspecified cirrhosis of liver. COMPARISON: Ultrasound abdomen complete 07/12/2023 and 01/10/2023. CT abdomen and pelvis 12/05/2022. TECHNIQUE: Real-time imaging of the abdominal viscera. Limited visualization due to bowel gas and body habitus. Patient was scanned in wheelchair, further limiting visualization. FINDINGS: PANCREAS: Limited visualization of pancreatic tail and head. Imaged portion of pancreatic body is unremarkable. ABDOMINAL AORTA: Poorly visualized. INFERIOR VENA CAVA: Visualized portions are normal. LIVER: Hepatomegaly, 16.2 cm. Coarse hepatic echotexture with appearance compatible with stated history of cirrhosis. Limited visualization. Mild amount of ascites. GALLBLADDER: Gallbladder wall thickening of 0.5 cm. No gallstones. COMMON BILE DUCT: Normal in caliber measuring 0.4 cm in diameter. RIGHT KIDNEY: No hydronephrosis. No renal calculi. Limited visualization. The kidney measures 9.3 cm in maximum dimension. LEFT KIDNEY: No hydronephrosis. No renal calculi. Limited visualization. The kidney measures 10.5 cm in maximum dimension. SPLEEN: The spleen measures 15.3 cm in maximum dimension. Splenomegaly. FREE FLUID: None. US/US abdomen complete IMPRESSION: 1. Hepatomegaly, 16.2 cm. Coarse hepatic echotexture with appearance compatible with stated history of cirrhosis. Limited visualization. Mild amount of ascites. 2. Splenomegaly, 15.3 cm. 3. Gallbladder wall thickening of 0.5 cm. No gallstones. Electronically signed by: Gena Hamlin MD 01/13/2024 08:53 PM EST
== END 2023-12-21 07:51 | disposition home or self-care (01) ==
LOC: HO.US 07:50
PROVIDERS: PCP Emergency Medicine; Visit Provider Internal Medicine
DX: K74.60 Unspecified cirrhosis of liver (principal)
CPT/HCPCS: 76700

== ENCOUNTER 2024-03-12 09:44 | Outpatient (AMB) | payer MEDICARE, MEDICAID, SELFPAY ==
--- NOTE | 2024-03-12 09:55 | MHC.OFFVIS ---
Vital Signs 03/12/24 09:56 Height 5 ft 2 in BMI Reason not done Patient refused/unable BP 103/52 L Blood Pressure Location Lt brachial Position Sitting Intake Visit Reasons: Cirrhosis 3 mo f/u Intake Note: Christina presents in the office as a 3 month follow up for Cirrhosis. CC: Has a broken leg. She is not needing surgery. Sometimes pains in the stomach, constipation and diarrhea on and off. She states that the lactulose seems to work alright. She refused the first dose today because she is out of the house and when she takes it sometimes it gives her diarrhea. Boilermaker Helper Required: No Allergies carrot Allergy (Mild, Verified 03/12/24 09:58) Unknown enoxaparin Allergy (Mild, Verified 03/12/24 09:58) Unknown fondaparinux Allergy (Mild, Verified 03/12/24 09:58) Unknown heparin Allergy (Mild, Verified 03/12/24 09:58) Unknown Iodinated Contrast Media Allergy (Mild, Verified 03/12/24 09:58) Unknown lorazepam [From Ativan] Allergy (Mild, Verified 03/12/24 09:58) Unknown olanzapine Allergy (Mild, Verified 03/12/24 09:58) Unknown perphenazine Allergy (Mild, Verified 03/12/24 09:58) Unknown quetiapine Allergy (Mild, Verified 03/12/24 09:58) Unknown Sulfa (Sulfonamide Antibiotics) Allergy (Mild, Verified 03/12/24 09:58) Unknown beet Allergy (Mild, Uncoded 03/12/24 09:58) Unknown oxycodone Allergy (Mild, Uncoded 03/12/24 09:58) Unknown HPI Comments Details: This is a 62 year old female with past medical history pertinent for decompensated liver cirrhosis (hepatic encephalopathy, ascites) likely 2/2 HERNANDEZ who is coming in for follow up. 05/30/22: Pt was last seen by our office in 09/2020 after admission to [facility] in [place] for AMS but she lost to follow up. Today, main complaint is abdominal distention which has been present for a few months. Associated with abdominal discomfort and chest pressure. Today also has been having diarrhea had 6 BMs just in the morning. At baseline she goes once a day or every other day with the lactulose. No blood in stool. Appetite is good. Etiology of cirrhosis assumed to be HERNANDEZ. Pt has not seen a optician apprentice dispensing in 2 years. Has never had endoscopy for variceal screening. Last US was done in Oct by [facility]. Report not available. Current cirrhosis related meds: lactulose and spironolactone 50. 08/14/22: Labs reviewed. Continues to be anemic, although ferritin not terrible. US abd done 08/10/22 through [facility] and shows trace ascites with no focal liver lesions. Splenomegaly. Main complaint remains abd distention and bloating. Diarrhea better from before but unsure if she is still taking lactulose. No fevers, chills, N,V, change in appetite. Unable to comment on any confusional spells and the aid accompanying the pt today is also unable to corroborate. 09/18/22: Was booked for a follow up today through her facility as there was some miscommunication re booking her procedures. Pt's main concern remains increased abdominal bloating and distention. Reports this also limits her appetite and activity. Moving her bowels and cont to take lactulose. Also on spironolactone 50, although has not had any ascites on US x 2 ([place] [facility] and [place] [facility] recent labs: 08/14 Na 136 K 4.6 BUN 27 Cr 1.04 11/30/22: EGD/colo: 1. Esophageal varices (banding) 2. Portal hypertensive gastropathy 3. Normal duodenum (biopsy) 4. Abnormal appendix suspicious for mucocele (biopsy) 5. Normal colon and terminal ileum mucosa 6. Total of 6 polyps removed 7. Large internal and external hemorrhoids Path: A. Duodenum, biopsy: Duodenal mucosa within normal limits. B. Colon, descending, polypectomies (2): Hyperplastic mucosal polyps. C. Colon, ascending, polypectomy: Colonic mucosa with prominent lymphoid aggregate. D. Vermiform appendix, biopsy: Superficial fragments of sessile serrated lesion/polyp; negative for cytologic dysplasia; multiple additional levels examined. E. Colon, transverse, polypectomy: Hyperplastic mucosal polyp. F. Colon, sigmoid, polypectomies (2): Hyperplastic mucosal polyp 12/19/22: Due to the abnormal appearance of appendix on colonoscopy suspicious for mucocele, an urgent CT abd/pel was obtained. This was performed without contrast due to documented allergy. GASTROINTESTINAL TRACT: Constipation. Question wall thickening of the distal colon and rectum and stranding of the surrounding fat. This may represent stercoral colitis from chronic constipation. Small and large bowel is otherwise normal. Appendix is not seen. There is a small amount of ascites. Pt accompanied by attendant from facility. Appears much more somnolent today and unable to hold a conversation for longer than a few minutes. Med list reviewed - lactulose started just this morning. Continues on rifaximin 550 BID. For variceal prophylaxis, carvedilol 3.125 BID started after EGD. For SSL of appendix, referral requested to surg already. Martha for appt later today. 04/18/23: Here with attendant from her facility. Has been seen by surg and due to her surgical risk, recommended to undergo another colo in 6 months to surveil. Pt otherwise has no sx. Does not report abd discomfort, distention, nausea or vomiting. No unintentional weight loss reported. 06/28/23: Mucocele (biopsy) 1 polyp removed Diverticulosis Large internal and external hemorrhoids Path: A. Vermiform appendix, biopsy: - Fragments of sessile serrated lesion/polyp. - Mucin, degenerated epithelial cells and luminal debris; multiple additional levels examined; see comment. B. Colon, transverse, polypectomy: Colonic mucosa with prominent lymphoid aggregate and mild surface hyperplastic changes; multiple additional levels examined. Comment (A): The patient's appendiceal mass protruding into the cecum is noted. An unsampled more worrisome lesion cannot be ruled out. 07/11/23: Booked as a televisit due to transport issues today. Results reviewed of the colo with the pt. Mucocele has previously discussed. Has an appt with surgery on 07/23 to review indication for surgery. Abd [facility] for tmrw for HCC screening and ascites check. Otherwise no GI issues at present. 12/12/23: 03/12/24: Seen in follow pt was admitted in [facility] in Dec for CAP and hypoxia x 2 days. Attempted to get colo inpatient but could not be done. Now booked in Mar. Pt then sustained a fall at the end of Dec of LEFT distal femur complicated by presumed fat embolism leading to shortness of breath and hypoxic resp failure. Currently knee is an immobolizer. Pt reports no surgery planned. Will get records. In terms of cirrhosis, reports no abd pain, distention, pruritus. Mental status at baseline, no asterixis on exam. HCP: Sister Rosemarie Miller [phone] lives in [place]. [facility] Medical History Hyperlipidemia GERD (gastroesophageal reflux disease) Dysphagia Anemia [place] disease Diabetic neuropathy Hypothyroid Borderline personality disorder History of electroconvulsive therapy PTSD (post-traumatic stress disorder) Depression Other seizures Acute kidney failure Bipolar disorder Hammer toe Acute and subacute hepatic failure without coma Presbyopia Cirrhosis of liver Nail dystrophy Tinea manuum, pedis, and unguium Type 2 diabetes mellitus Contracture, right hand Brain injury Surgical History History of esophagogastroduodenoscopy (EGD) Hx of colonoscopy History of lumpectomy Previous back surgery Social History Household Members: Other Household Members Other:: custodial Housing: Custodial Do you presently have visiting nurse or other home services: No Unable to assess alcohol history related to: Unknown Alcohol intake: never Patient Tobacco Use Status: Never used Tobacco Advance Directives Date on File: 04/06/21 service: No Current occupational status: disabled Review of Systems Const All systems reviewed & are unremarkable except as noted in HPI and below Physical Exam Vital Signs: Last Vital Signs BP 103/52 L 03/12/24 09:56 Elderly female Nonicteric L knee in immobilizer A/Ox3, no asterixis Assessment & Plan Assessment & Plan (1) Cirrhosis of liver with ascites: Code(s): K74.60 - Unspecified cirrhosis of liver; R18.8 - Other ascites Category: Surgical (2) Adenoma of appendix: Code(s): D12.1 - Benign neoplasm of appendix Category: Surgical (3) Femur fracture, left: Code(s): S72.92XA - Unspecified fracture of left femur, initial encounter for closed fracture Category: Medical Plan 1. SSL of appendix: Mucocele like appearance on colonoscopy with path + for SSL. Sees [facility] colorectal and initially was planned for colo in Dec 2023 which was rescheduled due to events outlined above. Now booked in Mar. 2. 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 Needs updated MELD labs - live source operator again reminded to get these done today. Has good control of ascites on sprinolactone. HE well controlled, currnetly on lactulose 4 times a day, will reduce this. Plan: - Check CBC, CMP and INR TODAY - live source operator reminded to take pt to lab - Cont spironolactone 100mg. - DECREASE lactulose to 30 ml 2-3 times a day for goal loose BM 2-3/day - Cont rifaximin 550 BID - Minimize sleep aids, benzos - Cont carvedilol 3.125 BID. - HCC screening: Last US ABd 11/2023 without any focal lesions. Next US due in May 2024 - Timing of next EGD to be reviewed at next office visit, depending on results of colo 3. L femur fracture Per pt's report, non-op management recommended. Will get records from [facility]. Follow up 3 months Orders: Orders Prothrombin Time INR Today K74.60 - Unspecified cirrhosis of liver, R18.8 - Other ascites Complete Blood Count no Diff Today K74.60 - Unspecified cirrhosis of liver, R18.8 - Other ascites Comprehensive Met. Panel Today K74.60 - Unspecified cirrhosis of liver, R18.8 - Other ascites Medications: Discontinued peg 3350-electrolytes 236-22.74-6.74 -5.86 gram Refer to prep instructions given/ mailed to you from GI OFFICE. until fecal effluent is clear Discontinued Reason: Patient no longer taking 240 mL PO Q10M 4,000 mL 0RF Coding Level of Care Code Est Pt Level 4 (21888) Complex EM visit Add On G2211 Diagnoses Cirrhosis of liver with ascites K74.60; R18.8 Adenoma of appendix D12.1 Femur fracture, left S72.92XA
[2024-03-12 09:56] VITALS: BP 103/52
== END 2024-03-12 10:38 | disposition home or self-care (01) ==
PROVIDERS: PCP Emergency Medicine; Visit Provider Internal Medicine
DX: K74.60 Unspecified cirrhosis of liver (principal); R18.8 Other ascites; D12.1 Benign neoplasm of appendix; S72.92XA Unspecified fracture of left femur, initial encounter for closed fracture
CPT/HCPCS: 99214; G2211

== ENCOUNTER → 2024-03-12 09:44 | Outpatient (BNVA) | payer MEDICARE, MEDICAID, SELFPAY | PROVIDERS: PCP Emergency Medicine; Visit Provider Internal Medicine | DX: R10.9 Unspecified abdominal pain (principal); K74.60 Unspecified cirrhosis of liver; R18.8 Other ascites; K59.00 Constipation, unspecified; R19.7 Diarrhea, unspecified; D12.1 Benign neoplasm of appendix | CPT/HCPCS: 99212 ==